=== PATIENT | male | born 1930 | race Caucasian/White ===

== ENCOUNTER → 2017-02-17 | Outpatient (CLI) | payer MEDICARE, OTHER ==
--- NOTE | 2017-02-17 15:10 | REP ---
LEFT HAND, FOUR VIEWS: HISTORY: Sprain. There is no acute fracture or dislocation. There is narrowing of the interphalangeal joint space of the first digit with associated osteophyte formation. There is narrowing of the intermediate and distal interphalangeal joint spaces of the second through fifth digits. IMPRESSION: Degenerative change as described above. Signed by Trevon Beck MD 02/17/2017 03:11 P
--- NOTE | 2017-02-17 15:14 | REP ---
LEFT WRIST, FOUR VIEWS: There is no acute fracture or dislocation. The joint spaces are normal in appearance. IMPRESSION: There is no acute fracture or dislocation. Signed by Trevon Beck MD 02/17/2017 03:26 P
== END ==
LOC: M WUC 12:21
PROVIDERS: ATTEND Physician Assistant
DX: S63.92XA Sprain of unspecified part of left wrist and hand, initial encounter (principal); M19.042 Primary osteoarthritis, left hand; X58.XXXA Exposure to other specified factors, initial encounter; Y92.89 Other specified places as the place of occurrence of the external cause; Y93.89 Activity, other specified; Y99.8 Other external cause status

== ENCOUNTER → 2017-08-25 | Outpatient (REF) | payer MEDICARE, OTHER | LOC: M LAB REF 18:19 | DX: S01.301A Unspecified open wound of right ear, initial encounter (principal); W18.30XA Fall on same level, unspecified, initial encounter; Y92.009 Unspecified place in unspecified non-institutional (private) residence as the place of occurrence of the external cause | CPT/HCPCS: 88305 ==

== ENCOUNTER → 2017-09-01 | Outpatient (REF) | payer MEDICARE, OTHER ==
[2017-09-01 12:23] LABS: BASO % 0.7 % (0.0-1.0); EOS # 0.2 10^3/uL (0.0-0.50); EOS % 4.2 % (0.0-3.0); HEMATOCRIT 39.2 % (42.0-52.0); HEMOGLOBIN 12.9 g/dl (13.5-17.5); IMMATURE GRANULOCYTE % 0.4 % (0-3.0); LYMPH # 1.4 10^3/uL (1.5-4.5); LYMPH % 24.7 % (24.0-44.0); MEAN CORPUSCULAR HGB CONC 32.9 g/dl (32.0-36.5); MEAN CORPUSCULAR VOLUME 91.2 fl (80.0-96.0); MONO # 0.8 10^3/uL (0.0-0.8); NEUTROPHILS # 3.2 10^3/uL (1.8-7.7); PLATELET COUNT, AUTOMATED 180 10^3/uL (150-450); WHITE BLOOD COUNT 5.7 10^3/uL (4.0-10.0)
[2017-09-01 12:35] LABS: ANION GAP 5 MEQ/L (8-16); BLOOD UREA NITROGEN 20 MG/DL (7-18); C REACTIVE PROTEIN QUANTITATIV < 0.30 MG/DL (0.00-0.30); CALCIUM LEVEL 8.8 MG/DL (8.8-10.2); CARBON DIOXIDE LEVEL 28 MEQ/L (21-32); CHLORIDE LEVEL 109 MEQ/L (98-107); CREATININE FOR GFR 1.46 MG/DL (0.70-1.30); GLOMERULAR FILTRATION RATE 48.7 (>35); GLUCOSE, FASTING 86 MG/DL (70-100); POTASSIUM SERUM 4.6 MEQ/L (3.5-5.1); SODIUM LEVEL 142 MEQ/L (136-145)
[2017-09-01 13:49] LABS: ERYTHROCYTE SEDIMENTATION RATE 20 mm/hr (0-30)
== END ==
LOC: M LAB REF 11:45
DX: C44.222 Squamous cell carcinoma of skin of right ear and external auricular canal (principal)
CPT/HCPCS: 80048

== ENCOUNTER → 2017-09-23 | Outpatient (CLI) | payer MEDICARE, OTHER | LOC: M ONCR 10:07 | DX: C44.222 Squamous cell carcinoma of skin of right ear and external auricular canal (principal) | CPT/HCPCS: G0463 ==

== ENCOUNTER 2017-09-29 09:35 | Outpatient (RCR) | payer MEDICARE, OTHER | END 2017-10-07 | LOC: M ONCR 09:35 | DX: C44.202 Unspecified malignant neoplasm of skin of right ear and external auricular canal (principal) | CPT/HCPCS: 77300 ==

== ENCOUNTER 2017-10-08 10:18 | Outpatient (RCR) | payer MEDICARE, OTHER | END 2017-11-06 | LOC: M ONCR 10:18 | DX: C44.202 Unspecified malignant neoplasm of skin of right ear and external auricular canal (principal) | CPT/HCPCS: 77336 ==

== ENCOUNTER 2017-11-08 09:54 | Outpatient (RCR) | payer MEDICARE, OTHER | END 2017-12-07 | LOC: M ONCR 09:54 | DX: C44.202 Unspecified malignant neoplasm of skin of right ear and external auricular canal (principal) | CPT/HCPCS: 77336 ==

== ENCOUNTER → 2017-12-29 | Outpatient (CLI) | payer MEDICARE, OTHER | LOC: M ONCR 09:52 | DX: C44.202 Unspecified malignant neoplasm of skin of right ear and external auricular canal (principal) | CPT/HCPCS: G0463 ==

== ENCOUNTER → 2018-06-29 | Outpatient (CLI) | payer MEDICARE, OTHER ==
[~2018-06-29] MED LIST: SILV40CR EXT
--- NOTE | 2018-06-30 13:01 | RADONC ---
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 Since this time he has had complete healing of the skin reaction he was experiencing during radiotherapy. He is also have a complete resolution of his tumor. He specifically denies any nausea, vomiting, headache or significant skin irritation. His energy level is satisfactory and he is able to maintain day-to-day activities. He does claim there is occasional memory loss but denies any other issues related to his treatment or to his disease. SYSTEMS REVIEW: Is noncontributory with the exception of was noted in the above paragraph. EXAMINATION FINDINGS: The skin within the irradiated volume shows no evidence of residual tumor. No new tumors are suspected. There is some minute scabbing with minimal excoriation in his scalp area. No lymphadenopathy is appreciated in the cervical, supraclavicular, axillary, inguinal lymph node chains. Lungs: Clear. Heart: Regular without murmurs. Abdomen: Without evidence of hepatomegaly, masses, deep abdominal tenderness. Extremities: Without cyanosis, clubbing or edema. Neurologic: Examination unchanged. IMPRESSION: Clinically SHAMIKA. PLAN: We will see the patient back in approximately 1 year for post radiotherapy followup visit. He was encouraged to return to his referring physicians as per their directions and instructions. cc: MD Andres Naik MD Jason White, MD
== END ==
LOC: M ONCR 10:55
PROVIDERS: ATTEND Radiology Radiation Oncology
DX: Z08 Encounter for follow-up examination after completed treatment for malignant neoplasm (principal); R41.3 Other amnesia; Z92.3 Personal history of irradiation; Z85.828 Personal history of other malignant neoplasm of skin

== ENCOUNTER 2020-06-20 10:59 | Observation (INO) | payer MEDICARE, OTHER ==
[~2020-06-20] VITALS: Ht 157.5 cm; Wt 48.2 kg
--- OUTSIDE RECORDS SUMMARY | 2020-06-20 11:09 | CCD ---
Continuity of Care Document (CCD) Created on: 04/26/2020 Leon Quiñones External Reference #: [id number] : 1930 Sex: Male Author Author Leon TOBIN MD Organization Unknown Address [address] [place] [id number] Phone [phone] Care Team Providers Care Button Station Worker Name Role Phone Phuc Winchester M.D. AUTM [phone] Josselin Causey PA-C AUTM [phone] AUTM Unavailable Problems Active Problems Provider Date Obstructive sleep apnea syndrome Candida Jay Onset: 02/23/2011 Disorders of initiating and maintaining sleep Dorothy banks M.D. Onset: 02/23/2011 Essential hypertension Dorothy Tan M.D. Onset: 02/23/2011 Ex-smoker Dorothy Tan M.D. Onset: Body Mass Index 31.0-31.9 Adult Gee Jay Onset: 03/14/2013 Obesity Dorothy Tan M.D. Onset: Overweight Dorothy Tan M.D. Onset: 09/2012 Body Mass Index 26.0-26.9 Adult Gee Jay Onset: 03/13/2014 Body Mass Index 33.0-33.9 Adult Gee Jay Onset: 07/26/2014 Neoplasm of uncertain behavior of skin Tashi Rudd MD O nset: 08/20/2014 Deviated nasal septum Tashi Rudd MD Onset: 08/20/2014 Social History Type Date Description Comments Sex Unknown Smokeless Tobacco Never Used Smokeless Tobacco ETOH Use 1-2 A Day Tobacco Use Start: 05/10/45 End: 05/10/82 Patient is a forme r smoker 1-2 PPD HISTORY FOR 37 YEARS Recreational Drug Use Denies Drug Use Smoking Status Reviewed: 03/13/20 Patient is a former smoker 1- 2 PPD HISTORY FOR 37 YEARS Allergies, Adverse Reactions, Alerts Active Allergies Reaction Severity Comments Date Oxacillin 07/26/2014 Shrimp 09/10/2017 Inactive Allergies NKDA 03/12/2010 Medications Active Medications SIG Qnty Indications Ordering Provide r Date Atrovent HFA 17mcg/Act Aerosol 2 sprays both sides twice a day 1Month Andres Tobin MD [address] 1 by mouth every day 60caps Andres Tobin MD 04/26/2020 Aspirin 81mg Tablets 1 tab by mouth every day Unknown Multivitamins Tablets 1 tab by mouth every day Unknown CPAP 7CM Marras Unknown Lipitor 40mg Tablets 1 tab by mouth every day Unknown Donepezil HCL 10mg Tablets 1 tab by mouth every day Unknown Memantine HCL 10mg Tablets Cathy Sanders M.D. Meclizine HCL 25mg Tablets 1/2 tab prn Unknown Immunizations CPT Code Status Date Vaccine Lot # 64069 Given 02/21/2013 Influenza Virus Split 3 Yrs And Above For Intramuscular Use 54488 Given 02/15/2012 Influenza Virus Split 3 Yrs And Above For Intramuscular Use 87836 Given 03/30/2011 Influenza Virus Split 3 Yrs And Above For Intramuscular Use 80187 Given 01/15/2010 Influenza Vaccine 98482 Given 03/14/2008 Pneumococcal PPSV23 Vital Signs Date Vital Result Comment 04/26/2020 1:13pm Height 66 inches 5'6" Weight 124.00 lb BMI (Body Mass Index) 20.0 kg/m2 [place] Body Weight 142 lb Weight 56.246 kg BSA (Body Surface Area) 1.63 m2 03/13/2020 9:59am BP Systolic 130 mmHg BP Diastolic 80 mmHg Heart Rate 94 /min O2 % BldC Oximetry 97 % Height 66 inches 5'6" Weight 124.00 lb BMI (Body Mass Index) 20.0 kg/m2 [place] Body Weight 142 lb Weight 56.246 kg BSA (Body Surface Area) 1.63 m2 Results Description No Information Available Procedures Description No Information Available Medical Devices Description No Information Available Encounters Type Date Location Provider Dx Diagnosis Office Visit 03/13/2020 10:00a [facility] Chucky Romano, N.P. G47.33 Obstructive sleep apnea (adult) (pediatr ic) Z87.891 Personal history of nicotine dependence Assessments Date Code Description Provider 03/13/2020 G47.33 Obstructive sleep apnea (adult) (pediatric) Yaneth Romano N.John Paul 03/13/2020 Z87.891 Personal history of nicotine dep endence aYneth oRmano, N.Chelo. Plan of Treatment Future Appointment(s):* 03/13/2021 10:15 am - Yaneth Romano, N.P. at [facility] 04/26/2020 - Andres Tobin MD* All * New Medication:* Atrovent HFA 17 mcg/Act - 2 sprays both sides twice a day * Omeprazole 40 mg - 1 by mouth every day Functional Status Functional Condition Comment Date Status Independent with all ADL's Activ e Independent with all IADL's Acti ve Mental Status Mental Condition Comment Date Status Cognitive ability not impaired A ctive Referrals Refer to Dr Reason for Referral Status Appt Andres Tobin M.D. [employer]IP REF J [employer] Scheduled 04/26/[address] [address] [phone]
--- OUTSIDE RECORDS SUMMARY | 2020-06-20 11:09 | CCD | Continuity of Care Document ---
Author Author Leon TOBIN MD Organization Unknown Address [address] [place] [address] Phone [phone] Care Team Providers Care Steel Rule Die Maker Apprentice Name Role Phone Phuc Winchester M.D. AUTM [phone] Josselin Causey PA-C AUTM [phone] AUTM Unavailable Problems Active Problems Provider Date [...] SIG Qnty Indications Ordering Provide r Date Omeprazole 40mg Capsules DR 1 by mouth every day 60caps Andres Tobin MD 04/26/2020 Ipratropium [place] 0.06% Solution spray 2 sprays in each nostrils two times a day 15units Andres goldsmith MD 04/26/2020 Aspirin 81mg Tablets 1 tab by mouth every day Unknown Multivitamins Tablets 1 tab by mouth every day Unknown CPAP 7CM Marras Unknown Lipitor 40mg Tablets 1 tab by mouth every day Unknown Donepezil HCL 10mg Tablets 1 tab by mouth every day Unknown Memantine HCL 10mg Tablets Cathy Sanders M.D. Meclizine HCL 25mg Tablets 1/2 tab prn Unknown History Medications Atrovent HFA 17mcg/Act Aerosol 2 sprays both sides twice a day 1Month Andres Tobin MD 0 - 04/26/2020 Immunizations CPT Code Status Date Vaccine Lot # [id number] Given 02/21/2013 Influenza Virus Split 3 Yrs And Above For Intramuscular Use 38785 Given 02/15/2012 Influenza Virus Split 3 Yrs And Above For Intramuscular Use 01776 Given 03/30/2011 Influenza Virus Split 3 Yrs And Above For Intramuscular Use 78035 Given 01/15/2010 Influenza Vaccine 96560 Given 03/14/2008 Pneumococcal PPSV23 Vital Signs Date Vital Result Comment 06/17/2020 10:47am Height 66 inches 5'6" Weight 124.00 lb BMI (Body Mass Index) 20.0 kg/m2 [place] Body Weight 142 lb Weight 56.246 kg BSA (Body Surface Area) 1.63 m2 06/03/2020 2:43pm Height 66 inches 5'6" Weight 124.00 lb BMI (Body Mass Index) 20.0 kg/m2 [place] Body Weight 142 lb Weight 56.246 kg BSA (Body Surface Area) 1.63 m2 Results Description No Information Available Procedures Description No Information Available Medical Devices Description No Information Available Encounters Type Date Location Provider Dx Diagnosis Office Visit 06/03/2020 2:40p [facility] Andres buchanan MD 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 J31.0 Chronic rhinitis Office Visit 04/26/2020 1:00p [facility] Andres Tobin MD J31.0 Chronic rhinitis Office Visit 03/13/2020 10:00a [facility] Chucky Romano N.PRo G47.33 Obstructive sleep apnea (adult) (pediatr ic) Z87.891 Personal history of nicotine dependence Assessments Date Code Description Provider 06/03/2020 C44.301 Unspecified malignant neoplasm o f skin of nose Andres Tobin MD 06/03/2020 J31.0 Chronic rhinitis Andres Tobin MD 04/26/2020 J31.0 Chronic rhinitis Andres Tobin MD 03/13/2020 G47.33 Obstructive sleep apnea (adult) (pediatric) Yaneth Romano, N.P. 03/13/2020 Z87.891 Personal history of nicotine dep endence Yaneth Romano, N.P. Plan of Treatment Future Appointment(s):* 03/13/2021 10:15 am - Yaneth Romano, N.PRo at [facility] Functional Status Functional Condition Comment Date Status Independent with all ADL's Activ e Independent with all IADL's Acti ve Mental Status Mental Condition Comment Date Status Cognitive ability not impaired A ctive Referrals Refer to Dr Reason for Referral Status Appt Andres Alvarez M.D. [employer]AL [employer]IP REF J [employer] Closed 04/26/[address] [place] [address] [phone]
--- OUTSIDE RECORDS SUMMARY | 2020-06-20 11:09 | CCD | Continuity of Care Document ---
Author Author Leon WINCHESTER M.D. Organization Unknown Address [address] [place] [address] Phone [phone] Care Team Providers Care Black And White Printer Operator Name Role Phone Phuc Winchester MD AUTM [phone] Moody Malloy MD AUTM [phone] Dorothy Tan AUTM [phone] Problems Active Problems Provider Date Aortic valve disorder Hermelinda Alexis D.O. Onset: 05/10 Benign essential hypertension Hermelinda Alexis D.O. Ons et: 05/27/2011 Obstructive sleep apnea syndrome Hermelinda Alexis D.O. Onset: 05/27/2011 Gastroesophageal reflux disease Hermelinda Alexis D.O. O nset: 05/27/2011 Pure hypercholesterolemia Hermelinda Alexis D.O. Onset: 05/27/2011 Social History Type Date Description Comments Sex Unknown ETOH Use Denies alcohol use Tobacco Use Start: Unknown End: Unknown Patient is a former smoker SMOKED FOR 27YRS 1/2 MOIZ A DAY Allergies, Adverse Reactions, Alerts Active Allergies Reaction Severity Comments Date Penicillin 05/12/2018 Shrimp 05/12/2018 Inactive Allergies NKDA 07/28/2010 Medications Active Medications SIG Qnty Indications Ordering Provide r Date Memantine HCL 10mg Tablets take one tablet by mouth twice a day 60tabs Phuc Winchester M.D. 2019 Pepcid 20mg Tablets 1 by mouth daily 90tabs Phuc Winchester M.D. 10/26/2019 Famotidine 20mg Tablets 1 by mouth every day 180tabs Phuc Winchester M.D. 05/08/2019 Cpap Phuc Winchester M.D. 04/09 Aspirin 81mg Chewtabs 1 by mouth every day 100units Phuc Winchester M.D. 05/16/2015 Walker With Wheels [facility] walker with seat,brakes as directed dx: osteoarthitis,gait disorder 1units Hermelinda Alexis D.O. 05/22/2014 Lipitor 40mg Tablets 1 by mouth every day 90tabs Phuc Winchester M.D. 04/11/2013 Meclizine HCL 25mg Chewtabs Unknown Donepezil HCL 10mg Tablets 1/2 by mouth every day for 2 weeks, then 1 po daily Unknown Immunizations CPT Code Status Date Vaccine Lot # U-Flu Given 02/19/2020 Influenza,Unspecified U-Flu Given 02/22/2019 Influenza,Unspecified [id number] Given 02/22/2018 Shingrix U-Flu Given 02/22/2018 Influenza,Unspecified 09442 Given 07/13/2014 Prevnar 13 [id number] Given 12/11/2009 Zostavax U-Pneum Given 11/17/2006 Pneumococcal,Unspecified Vital Signs Date Vital Result Comment 03/26/2020 12:17pm BP Systolic 158 mmHg BP Diastolic 100 mmHg BP Systolic Recheck 132 mmHg BP Diastolic Recheck 70 mmHg Heart Rate 98 /min Height 63.0 inches 5'3" Weight 126.00 lb O2 % BldC Oximetry 98 % BMI (Body Mass Index) 22.3 kg/m2 12/29/2019 11:47am BP Systolic 126 mmHg BP Diastolic 70 mmHg BP Systolic Lying Down 100 mmHg BP Diastolic Lying Down 68 mmHg BP Systolic Sitting 90 mmHg BP Diastolic Sitting 64 mmHg BP Systolic Standing 82 mmHg BP Diastolic Standing 54 mmHg Heart Rate 96 /min Height 63.0 inches 5'3" Weight 138.00 lb O2 % BldC Oximetry 96 % BMI (Body Mass Index) 24.4 kg/m2 Results Test Acquired Date Facility Test Result H/L Range Note Complete Blood Count 03/26/2020 [facility] corky arthur Physician General Practice: Dr Armando Carranza [place] [id number] [phone] WBC 7.0 x10*3/UL 4.1 - 10.9 RBC 4.76 x10*6/UL 4.20 - 6.30 Hemoglobin 13.9 g/dL 12.0 - 18.0 Hematocrit 42.2 % 37.0 - 51.0 MCV 88.6 fL 80.0 - 97.0 MCH 29.3 pg 26.0 - 32.0 MCHC 33.1 g/dL 31.0 - 38.0 RDW 13.7 % 11.6 - 13.7 PLT 209 x10*3/UL 140 - 440 MPV 8.5 FL 7.8 - 11.0 Lymph % 17.3 % 10.0 - 58.5 Mid % 4.7 % 1.7 - 9.3 Neut % 78.0 % 37.0 - 92.0 Lymph # 1.2 x10*3/UL 0.6 - 4.1 Mid # 0.4 x10*3/UL 0.1 - 0.6 Neut # 5.4 x10*3/UL 2.0 - 7.8 Comprehensive Chem Profile 03/26/2020 [facility] corky loredo Physician General Practice: [place] [address] [phone] Glucose 96 mg/dL 74 - 99 1 BUN 18 mg/dL 7 - 18 Creatinine 1.2 mg/dL 0.6 - 1.3 Sodium 142 mEq/L 136 - 145 Potassium 4.5 mEq/L 3.5 - 5.1 Chloride 103 mEq/L 98 - 107 Carbon Dioxide 33 mEq/L High 21 - 32 Calcium 9.5 mg/dL 8.5 - 10.1 Alk. Phosphatase 125 mg/dL High 46 - 116 Total Bilirubin 0.6 mg/dL 0.2 - 1.0 Ast (Sgot) 29 U/L 15 - 37 Alt (SGPT) 41 U/L 12 - 78 Albumin 3.3 g/dL Low 3.4 - 5.0 Total Protein 8.0 g/dL 6.4 - 8.2 A/G Ratio 0.70 CALC Low 1.00 - 1.90 GFR 57 mL/min Low >60 GFR >= 60 mL/min >60 2 Laboratory test finding 03/26/2020 [facility] Barrel And Receiver corky solorzano Physician General Practice: [place] [address] [phone] Thyroid Stimulating Hormone 1.28 uIU/mL 0.3 6 - 3.74 Complete Blood Count 12/29/2019 [facility] Executive corky arthur Physician General Practice: [place] [address] [phone] WBC 7.3 x10*3/UL 4.1 - 10.9 RBC 4.18 x10*6/UL Low 4.20 - 6.30 Hemoglobin 12.3 g/dL 12.0 - 18.0 Hematocrit 36.5 % Low 37.0 - 51.0 MCV 87.3 fL 80.0 - 97.0 MCH 29.5 pg 26.0 - 32.0 MCHC 33.8 g/dL 31.0 - 38.0 RDW 13.2 % 11.6 - 13.7 PLT 202 x10*3/UL 140 - 440 MPV 8.3 FL 7.8 - 11.0 Lymph % 20.7 % 10.0 - 58.5 Mid % 6.9 % 1.7 - 9.3 Neut % 72.4 % 37.0 - 92.0 Lymph # 1.5 x10*3/UL 0.6 - 4.1 Mid # 0.5 x10*3/UL 0.1 - 0.6 Neut # 5.3 x10*3/UL 2.0 - 7.8 Comprehensive Chem Profile 12/29/2019 [facility] corky loredo Physician General Practice: [place] [address] [phone] Glucose 112 mg/dL High 74 - 99 3 BUN 26 mg/dL High 7 - 18 Creatinine 1.7 mg/dL High 0.6 - 1.3 Sodium 142 mEq/L 136 - 145 Potassium 5.1 mEq/L 3.5 - 5.1 Chloride 105 mEq/L 98 - 107 Carbon Dioxide 28 mEq/L 21 - 32 Calcium 9.3 mg/dL 8.5 - 10.1 Alk. Phosphatase 99 mg/dL 46 - 116 Total Bilirubin 0.8 mg/dL 0.2 - 1.0 Ast (Sgot) 22 U/L 15 - 37 Alt (SGPT) 27 U/L 12 - 78 Albumin 3.4 g/dL 3.4 - 5.0 Total Protein 8.0 g/dL 6.4 - 8.2 A/G Ratio 0.74 CALC Low 1.00 - 1.90 GFR 38 mL/min Low >60 GFR 46 mL/min Low >60 4 Complete Blood Count 10/23/2019 [facility] Account Executive corky arthur Physician General Practice: [place] [address] [phone] WBC 6.4 x10*3/UL 4.1 - 10.9 RBC 4.51 x10*6/UL 4.20 - 6.30 Hemoglobin 13.1 g/dL 12.0 - 18.0 Hematocrit 39.5 % 37.0 - 51.0 MCV 87.7 fL 80.0 - 97.0 MCH 29.0 pg 26.0 - 32.0 MCHC 33.0 g/dL 31.0 - 38.0 RDW 13.6 % 11.6 - 13.7 PLT 183 x10*3/UL 140 - 440 MPV 8.2 FL 7.8 - 11.0 Lymph % 24.9 % 10.0 - 58.5 Mid % 7.7 % 1.7 - 9.3 Neut % 67.4 % 37.0 - 92.0 Lymph # 1.5 x10*3/UL 0.6 - 4.1 Mid # 0.6 x10*3/UL 0.1 - 0.6 Neut # 4.3 x10*3/UL 2.0 - 7.8 Comprehensive Chem Profile 10/23/2019 [facility] corky Claros Physician General Practice: [place] [address] [phone] Glucose 94 mg/dL 74 - 99 5 BUN 28 mg/dL High 7 - 18 Creatinine 1.5 mg/dL High 0.6 - 1.3 Sodium 143 mEq/L 136 - 145 Potassium 4.8 mEq/L 3.5 - 5.1 Chloride 106 mEq/L 98 - 107 Carbon Dioxide 26 mEq/L 21 - 32 Calcium 8.9 mg/dL 8.5 - 10.1 Alk. Phosphatase 90 mg/dL 46 - 116 Total Bilirubin 0.8 mg/dL 0.2 - 1.0 Ast (Sgot) 28 U/L 15 - 37 Alt (SGPT) 36 U/L 12 - 78 Albumin 3.6 g/dL 3.4 - 5.0 Total Protein 8.0 g/dL 6.4 - 8.2 A/G Ratio 0.82 CALC Low 1.00 - 1.90 GFR 44 mL/min Low >60 GFR 54 mL/min Low >60 6 Lipid Profile 10/23/2019 [facility] Physician General Practice: Dr [place] [address] [phone] Cholesterol 131 mg/dL 131 - 200 Triglycerides 65 mg/dL 30 - 150 HDL Cholesterol 59 mg/dL 35 - 60 LDL (Calculated) 59 CALC 50 - 159 Laboratory test finding 10/23/2019 [facility] Physician General Practice: Dr Armando [place] [address] [phone] Thyroid Stimulating Hormone 1.40 uIU/mL 0.3 6 - 3.74 1 100-125 mg/dL PRE-DIABET ES/FASTING >126 mg/dL DIABETES/FASTING 2 CHRONIC KIDNEY DISEASE STAGI NG PER NKF STAGE I & II GFR >= 60 NORMAL TO MILDLY DECREASED STAGE III GFR 30-59 MODERATELY DECREASED STAGE IV GFR 15-29 SEVERELY DECREASED STAGE V GFR <15 VERY LITTLE GFR LEFT ESRD GFR <15 ON WRINKLE CHASER 3 100-125 mg/dL PRE-DIABET ES/FASTING >126 mg/dL DIABETES/FASTING 4 CHRONIC KIDNEY DISEASE STAGI NG PER NKF STAGE I & II GFR >= 60 NORMAL TO MILDLY DECREASED STAGE III GFR 30-59 MODERATELY DECREASED STAGE IV GFR 15-29 SEVERELY DECREASED STAGE V GFR <15 VERY LITTLE GFR LEFT ESRD GFR <15 ON WRINKLE CHASER 5 100-125 mg/dL PRE-DIABET ES/FASTING >126 mg/dL DIABETES/FASTING 6 CHRONIC KIDNEY DISEASE STAGI NG PER NKF STAGE I & II GFR >= 60 NORMAL TO MILDLY DECREASED STAGE III GFR 30-59 MODERATELY DECREASED STAGE IV GFR 15-29 SEVERELY DECREASED STAGE V GFR <15 VERY LITTLE GFR LEFT ESRD GFR <15 ON WRINKLE CHASER Procedures Date Code Description Status 02/26/2016 [id number] Colonoscopy Completed 02/11/2005 [id number] Colonoscopy Completed Medical Devices Description No Information Available Encounters Type Date Location Provider Dx Diagnosis Office Visit 03/26/2020 11:30a [facility] Winchester M.D. 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 Phuc Winchester M.D. 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 03/26/2020 K21.9 Gastro-esophageal reflux disease without esophagitis Phuc Winchester M.D. 03/26/2020 I12.9 Hypertensive chronic kidney disease with stage 1 through stage 4 chronic kidney disease, or unspecified chronic kidney disease Phuc Winchester M.D. 03/26/2020 N18.30 Chronic kidney disease, stage 3 unspecified Phuc Winchester M.D. 03/26/2020 G47.33 Obstructive sleep apnea (adult) (pediatric) Phuc Winchester M.D. 03/26/2020 I25.10 Atherosclerotic heart disease of [place] coronary artery with Phuc Winchester M.D. 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 03/26/2020 Z95.3 Presence of xenogenic heart valv e Phuc Winchester M.D. 03/26/2020 H35.30 Unspecified macular degeneration Phuc Winchester M.D. 03/26/2020 R09.82 Postnasal drip Phuc Winchester M.D. 02/22/2020 G47.33 Obstructive sleep apnea (adult) (pediatric) Phuc Winchester M.D. 02/22/2020 E78.00 Pure hypercholesterolemia, unspe cified Phuc Winchester M.D. 02/22/2020 K21.9 Gastro-esophageal reflux disease without esophagitis Phuc Winchester M.D. 01/17/2020 G47.33 Obstructive sleep apnea (adult) (pediatric) Phuc Winchester M.D. 01/17/2020 E78.00 Pure hypercholesterolemia, unspe cified Phuc Winchester M.D. 01/17/2020 K21.9 Gastro-esophageal reflux disease without esophagitis Phuc Winchester M.D. 01/17/2020 N18.3 Chronic kidney disease, stage 3 (moderate) Phuc Winchester M.D. 01/01/2020 G47.33 Obstructive sleep apnea (adult) (pediatric) Phuc Winchester M.D. 01/01/2020 E78.00 Pure hypercholesterolemia, unspe cified Phuc Winchester M.D. 01/01/2020 K21.9 Gastro-esophageal reflux disease without esophagitis Phuc Winchester M.D. 01/01/2020 N18.3 Chronic kidney disease, stage 3 (moderate) Phuc Winchester M.D. 12/29/2019 I95.1 Orthostatic hypotension Phuc Winchester M.D. 12/29/2019 R29.6 Repeated falls Phuc Winchester M.D. 12/29/2019 I12.9 Hypertensive chronic kidney disease with stage 1 through stage 4 chronic kidney disease, or unspecified chronic kidney disease Phuc Winchester M.D. 12/29/2019 N18.3 Chronic kidney disease, stage 3 (moderate) Phuc Winchester M.D. 12/29/2019 F03.90 Unspecified dementia without beh avioral disturbance Phuc Winchester M.D. 12/29/2019 D64.9 Anemia, unspecified Phuc coles M.D. 12/07/2019 G47.33 Obstructive sleep apnea (adult) (pediatric) Phuc Winchester M.D. 12/07/2019 N18.3 Chronic kidney disease, stage 3 (moderate) Phuc Winchester M.D. 12/07/2019 E78.00 Pure hypercholesterolemia, unspe cified Phuc Winchester M.D. 12/07/2019 K21.9 Gastro-esophageal reflux disease without esophagitis Phuc Winchester M.D. 10/23/2019 D64.9 Anemia, unspecified Phuc coles M.D. 10/23/2019 D64.9 Anemia, unspecified Lab Schedule 10/23/2019 I12.9 Hypertensive chronic kidney disease with stage 1 through stage 4 chronic kidney disease, or unspecified chronic kidney disease Phuc Winchester M.D. 10/23/2019 I12.9 Hypertensive chronic kidney disease with stage 1 through stage 4 chronic kidney disease, or unspecified chronic kidney disease Lab Schedule 10/23/2019 N18.3 Chronic kidney disease, stage 3 (moderate) Phuc Winchester M.D. 10/23/2019 N18.3 Chronic kidney disease, stage 3 (moderate) Lab Schedule 10/23/2019 E78.00 Pure hypercholesterolemia, unspe cified Phuc Winchester M.D. 10/23/2019 E78.00 Pure hypercholesterolemia, unspe cified Lab Schedule Plan of Treatment Future Appointment(s):* 07/26/2020 1:00 pm - [facility] 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 Hypercholesterolemia: Labs are not obtained today. Good results on Lipitor prior at present dose, will continue and monitor.2. Gastro-esophageal reflux disease: Uses H2 blockers for heartburn. We will monitor.3. Hypertensive chronic kidney disease: Elevated initially without associated symptoms and on recheck was normal. He will continue present regimen, will monitor.4. Chronic kidney disease, stage 3: Await labs today. We will monitor.5. Obstructive sleep apnea: Good compliance with CPAP. We will monitor. 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 We will monitor.7. Dementia with Lewy bodies: Patient will follow up with Dr. 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 Doing w ell, following with Cardiology.9. Macular degeneration: He will see Dr. Malloy as scheduled.10. Postnasal drip: Appears to be chronic, will use Flonase. We will monitor.Ongoing cares: Has a significant amount of care at the [place], sees next month with labs (will get these to me).Prior falls, but none recently since stopped "a blood pressure medicine". I am going to see him again in 4 months with CBC and CMP. If he has new problems or issues sooner he will let us know. Functional Status Description No Information Available Mental Status Description No Information Available Referrals Refer to Reason for Referral Status Appt Date Andres Tobin MD CONSULT FOR POST NASAL DRIP Sent [facility] [address] [place] [address] [phone]
--- OUTSIDE RECORDS SUMMARY | 2020-06-20 11:10 | CCD | Continuity of Care Document ---
Author Author Leon WINCHESTER M.D. Organization Unknown Address [address] [place] [address] Phone [phone] Care Team Providers Care Support Services Specialist Name Role Phone Phuc Winchester MD AUTM [phone] Moody Malloy MD AUTM [phone] Dorothy Tan AUTM [phone] Problems Active Problems Provider Date Aortic valve [...] Phuc Winchester M.D. 05/16/2015 [facility] With Wheels [facility] [place] walker with seat,brakes as directed dx: osteoarthitis,gait [...] Given 02/19/2020 Influenza,Unspecified U-Flu Given 02/22/2019 Influenza,Unspecified 45108 Given 02/22/2018 Shingrix U-Flu Given 02/22/2018 Influenza,Unspecified 31154 Given 07/13/2014 Prevnar 13 [id number] Given 12/11/2009 Zostavax U-Pneum Given 11/17/2006 Pneumococcal,Unspecified Vital Signs Date Vital Result Comment 03/26/2020 12:17pm BP Systolic 158 mmHg BP Diastolic 100 mmHg Heart Rate 98 /min Height 63.0 [...] Date Facility Test Result H/L Range Note Laboratory test finding 03/26/2020 [facility] Super[facility] corky solorzano Screw Machine Hand: Dr Armando Carranza [place], [place] [id number] [phone] TSH <pending> Complete Blood Count 12/29/2019 [facility] Screw Machine Hand: [place] [address] [phone] WBC 7.3 x10*3/UL 4.1 - 10.9 RBC [...] 2.0 - 7.8 Comprehensive Chem Profile 12/29/2019 [facility] loredo, Screw Machine Hand: [place] [address] [phone] Glucose 112 mg/dL High 74 - 99 1 BUN 26 mg/dL High 7 - 18 [...] Low >60 GFR 46 mL/min Low >60 2 Complete Blood Count 10/23/2019 [facility] corky arhtur Screw Machine Hand: [place] [address] [phone] WBC 6.4 x10*3/UL 4.1 - 10.9 RBC [...] 2.0 - 7.8 Comprehensive Chem Profile 10/23/2019 [facility] corky loredo Screw Machine Hand: [place] [address] [phone] Glucose 94 mg/dL 74 - 99 3 BUN 28 mg/dL High 7 - 18 [...] Low >60 GFR 54 mL/min Low >60 4 Lipid Profile 10/23/2019 [facility] Screw Machine Hand: Dr Armando Carranza [place], [place] [id number] [phone] Cholesterol 131 mg/dL 131 - 200 Triglycerides 65 mg/dL 30 - 150 HDL Cholesterol 59 mg/dL 35 - 60 LDL (Calculated) 59 CALC 50 - 159 Laboratory test finding 10/23/2019 [facility] Screw Machine Hand: Dr Armando Carranza [place], [place] [id number] [phone] Thyroid Stimulating Hormone 1.40 uIU/mL 0.3 6 - 3.74 1 100-125 mg/dL PRE-DIABET ES/FASTING >126 mg/dL DIABETES/FASTING 2 CHRONIC KIDNEY DISEASE STAGI NG PER NKF STAGE I & II GFR >= 60 NORMAL TO MILDLY DECREASED STAGE III GFR 30-59 MODERATELY DECREASED STAGE IV GFR 15-29 SEVERELY DECREASED STAGE V GFR <15 VERY LITTLE GFR LEFT ESRD GFR <15 ON FORECAST ANALYST 3 100-125 mg/dL PRE-DIABET ES/FASTING >126 mg/dL DIABETES/FASTING 4 CHRONIC KIDNEY DISEASE STAGI NG PER NKF STAGE I & II GFR >= 60 NORMAL TO MILDLY DECREASED STAGE III GFR 30-59 MODERATELY DECREASED STAGE IV GFR 15-29 SEVERELY DECREASED STAGE V GFR <15 VERY LITTLE GFR LEFT ESRD GFR <15 ON FORECAST ANALYST Procedures Date Code Description Status 02/26/2016 [id number] Colonoscopy Completed 02/11/2005 [id number] Colonoscopy Completed Medical Devices Description No Information Available Encounters Type Date Location Provider Dx Diagnosis Office Visit 12/29/2019 11:30a [facility] Phuc Winchester M.D. 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
--- OUTSIDE RECORDS SUMMARY | 2020-06-20 11:10 | CCD | Continuity of Care Document ---
Author Author Leon WINCHESTER M.D. Organization Unknown Address [address] [place] [address] Phone [phone] Care Team Providers Care Dispatcher Service Name Role Phone Phuc Winchester MD AUTM [phone] Moody Malloy MD AUTM [phone] Dorothy Tan AUTM [phone] Problems Active Problems Provider Date Aortic valve [...] Phuc Winchester M.D. 05/16/2015 Walker With Wheels [facility] walker with seat,brakes as directed dx: osteoarthitis,gait [...] Given 02/19/2020 Influenza,Unspecified U-Flu Given 02/22/2019 Influenza,Unspecified 78618 Given 02/22/2018 Shingrix U-Flu Given 02/22/2018 Influenza,Unspecified 65985 Given 07/13/2014 Prevnar 13 [id number] 40842 Given 12/11/2009 Zostavax U-Pneum Given 11/17/2006 Pneumococcal,Unspecified [...] Range Note Laboratory test finding 03/26/2020 [facility] corky solorzano Custom Frame Assembler: Dr Armando Carranza [place], [place] [id number] [phone] TSH <pending> Complete Blood Count 12/29/2019 [facility] Custom Frame Assembler: [place] [address] [phone] WBC 7.3 x10*3/UL 4.1 - 10.9 RBC [...] 2.0 - 7.8 Comprehensive Chem Profile 12/29/2019 [facility], Custom Frame Assembler: [place] [address] [phone] Glucose 112 mg/dL High 74 - 99 [...] Low >60 2 Complete Blood Count 10/23/2019 [facility] [employer] Techn[facility] corky arthur Custom Frame Assembler: [place] [address] [phone] WBC 6.4 x10*3/UL 4.1 - 10.9 RBC [...] 2.0 - 7.8 Comprehensive Chem Profile 10/23/2019 [facility] corky loredo Custom Frame Assembler: [place] [address] [phone] Glucose 94 mg/dL 74 - 99 3 [...] mL/min Low >60 4 Lipid Profile 10/23/2019 [facility] Custom Frame Assembler: [place] [address] [phone] Cholesterol 131 mg/dL 131 - 200 Triglycerides 65 mg/dL 30 - 150 HDL Cholesterol 59 mg/dL 35 - 60 LDL (Calculated) 59 CALC 50 - 159 Laboratory test finding 10/23/2019 [facility] Custom Frame Assembler: Dr Armando Carranza [place], [place] [id number] [phone] Thyroid Stimulating Hormone 1.40 uIU/mL 0.3 6 - 3.74 1 100-125 mg/dL PRE-DIABET ES/FASTING >126 mg/dL DIABETES/FASTING 2 CHRONIC KIDNEY DISEASE STAGI NG PER NKF STAGE I & II GFR >= 60 NORMAL TO MILDLY DECREASED STAGE III GFR 30-59 MODERATELY DECREASED STAGE IV GFR 15-29 SEVERELY DECREASED STAGE V GFR <15 VERY LITTLE GFR LEFT ESRD GFR <15 ON B2B SALES REPRESENTATIVE 3 100-125 mg/dL PRE-DIABET ES/FASTING >126 mg/dL DIABETES/FASTING 4 CHRONIC KIDNEY DISEASE STAGI NG PER NKF STAGE I & II GFR >= 60 NORMAL TO MILDLY DECREASED STAGE III GFR 30-59 MODERATELY DECREASED STAGE IV GFR 15-29 SEVERELY DECREASED STAGE V GFR <15 VERY LITTLE GFR LEFT ESRD GFR <15 ON B2B SALES REPRESENTATIVE Procedures Date Code Description Status 02/26/2016 [id number] Colonoscopy Completed 02/11/2005 [id number] Colonoscopy Completed Medical Devices Description No Information Available Encounters Type Date Location Provider Dx Diagnosis Office Visit 12/29/2019 11:30a [facility] Phuc Winchester M.D. 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 03/26/2020 K21.9 Gastro-esophageal reflux disease without esophagitis Phuc Wicnhester M.D. 03/26/2020 I12.9 Hypertensive chronic kidney disease with stage 1 through stage 4 chronic kidney disease, or unspecified chronic kidney disease Phuc Winchester M.D. 03/26/2020 N18.30 Chronic kidney disease, stage 3 unspecified Phuc Winchester M.D. 03/26/2020 G47.33 Obstructive sleep apnea (adult) (pediatric) Phuc Winchester M.D. 03/26/2020 R41.3 Other amnesia Phuc Winchester M.D. 03/26/2020 I25.10 Atherosclerotic heart disease of [place] coronary artery with Phuc Winchester M.D. 02/22/2020 G47.33 Obstructive sleep [...]
--- OUTSIDE RECORDS SUMMARY | 2020-06-20 11:11 | CCD ---
Author Author [facility] Organization [facility] Address Unknown Phone Unavailable Care Team Providers Care Propagation Manager Name Role Phone Matt CAMARILLO MD Unavailable Unavailable Matt CAMARILLO MD Unavailable Unavailable Matt CAMARILLO MD Unavailable Unavailable Matt CAMARILLO MD Unavailable Unavailable Matt CAMARILLO MD Unavailable Unavailable Matt CAMARILLO MD Unavailable Unavailable Matt CAMARILLO MD Unavailable Unavailable Matt CAMARILLO MD Unavailable Unavailable Matt CAMARILLO MD Unavailable Unavailable Matt CAMARILLO MD Unavailable Unavailable Matt CAMARILLO MD Unavailable Unavailable Matt CAMARILLO MD Unavailable Unavailable Matt CAMARILLO MD Unavailable Unavailable Matt CAMARILLO MD Unavailable Unavailable Matt CAMARILLO MD Unavailable Unavailable Matt CAMARILLO MD Unavailable Unavailable Matt CAMARILLO MD Unavailable Unavailable Matt CAMARILLO MD Unavailable Unavailable Matt CAMARILLO MD Unavailable Unavailable Matt CAMARILLO MD Unavailable Unavailable Matt CAMARILLO MD Unavailable Unavailable Matt CAMARILLO MD Unavailable Unavailable Matt CAMARILLO MD Unavailable Unavailable Matt CAMARILLO MD Unavailable Unavailable Matt CAMARILLO MD Unavailable Unavailable Matt CAMARILLO MD Unavailable Unavailable Matt CAMARILLO MD Unavailable Unavailable Matt CAMARILLO MD Unavailable Unavailable Matt CAMARILLO MD Unavailable Unavailable Matt CAMARILLO MD Unavailable Unavailable Matt CAMARILLO MD Unavailable Unavailable Matt CAMARILLO MD Unavailable Unavailable Matt CAMARILLO MD Unavailable Unavailable Matt CAMARILLO MD Unavailable Unavailable Matt CAMARILLO MD Unavailable Unavailable Matt CAMARILLO MD Unavailable Unavailable OSIRIS, GERONIMO AURORA CRM ADMINISTRATOR-C Unavailable Unavailable OSIRIS, GERONIMO AURORA CRM ADMINISTRATOR-C Unavailable Unavailable OSIRIS, GERONIMO AURORA CRM ADMINISTRATOR-C Unavailable Unavailable OSIRIS, GERONIMO AURORA CRM ADMINISTRATOR-C Unavailable Unavailable OSIRIS, GERONIMO AURORA CRM ADMINISTRATOR-C Unavailable Unavailable OSIRIS, GERONIMO AURORA CRM ADMINISTRATOR-C Unavailable Unavailable OSIRIS, GERONIMO AURORA CRM ADMINISTRATOR-C Unavailable Unavailable OSIRIS, GERONIMO AURORA CRM ADMINISTRATOR-C Unavailable Unavailable OSIRIS, GERONIMO AURORA CRM ADMINISTRATOR-C Unavailable Unavailable OSIRIS, GERONIMO AURORA CRM ADMINISTRATOR-C Unavailable Unavailable OSIRIS, GERONIMO AURORA CRM ADMINISTRATOR-C Unavailable Unavailable OSIRIS, GERONIMO AURORA CRM ADMINISTRATOR-C Unavailable Unavailable OSIRIS, GERONIMO AURORA CRM ADMINISTRATOR-C Unavailable Unavailable OSIRIS, GERONIMO AURORA CRM ADMINISTRATOR-C Unavailable Unavailable OSIRIS, GERONIMO AURORA CRM ADMINISTRATOR-C Unavailable Unavailable OSIRIS, GERONIMO AURORA CRM ADMINISTRATOR-C Unavailable Unavailable Toño Winchester MD Unavailable Unavailable Toño Winchester MD Unavailable Unavailable Toño Winchester MD Unavailable Unavailable Toño Winchester MD Unavailable Unavailable Toño Winchester MD Unavailable Unavailable Toño Winchester MD Unavailable Unavailable Toño Winchester MD Unavailable Unavailable Toño Winchester MD Unavailable Unavailable Toño Winchester MD Unavailable Unavailable Toño Winchester MD Unavailable Unavailable Toño Winchester MD Unavailable Unavailable Toño Winchester MD Unavailable Unavailable Toño Winchester MD Unavailable Unavailable Toño Winchester MD Unavailable Unavailable Toño Winchester MD Unavailable Unavailable Toño Winchester MD Unavailable Unavailable White F Phuc Unavailable Unavailable White F Phuc Unavailable Unavailable White F Phuc Unavailable Unavailable White F Phuc Unavailable Unavailable White F Phuc Unavailable Unavailable White F Phuc Unavailable Unavailable White F Phuc Unavailable Unavailable White, F Phuc Unavailable Unavailable White F Phuc Unavailable Unavailable White F Phuc Unavailable Unavailable White F Phuc Unavailable Unavailable White F Phuc Unavailable Unavailable White F Phuc Unavailable Unavailable White F Phuc Unavailable Unavailable White F Phuc Unavailable Unavailable White, F Phuc Unavailable Unavailable White, F Phuc Unavailable Unavailable White, F Phuc Unavailable Unavailable White, F Phuc Unavailable Unavailable White F Phuc Unavailable Unavailable White F Phuc Unavailable Unavailable White F Phucjavan NEWMAN Unavailable Unavailable White F Phuc Unavailable Unavailable White F Phuc NEWMAN Unavailable Unavailable White F Phuc NEWMAN Unavailable Unavailable White F Phuc NEWMAN Unavailable Unavailable White F Phuc NEWMAN Unavailable Unavailable White F Phuc NEWMAN Unavailable Unavailable White F Phuc NEWMAN Unavailable Unavailable White F Phuc NEWMAN Unavailable Unavailable White F Phuc NEWMAN Unavailable Unavailable White F Phuc NEWMAN Unavailable Unavailable White F Phuc NEWMAN Unavailable Unavailable Annabella F Phuc NEWMAN Unavailable Unavailable Annabella F Phuc NEWMAN Unavailable Unavailable Annabella F Phuc NEWMAN Unavailable Unavailable Annabella F Phuc NEWMAN Unavailable Unavailable White F Phuc NEWMAN Unavailable Unavailable White F Phuc NEWMAN Unavailable Unavailable Annabella F Phuc NEWMAN Unavailable Unavailable Annabella F Phuc NEWMAN Unavailable Unavailable Annabella F Phuc NEWMAN Unavailable Unavailable Annabella F Phuc NEWMAN Unavailable Unavailable Annabella F Phuc NEWMAN Unavailable Unavailable Annabella F Phuc NEWMAN Unavailable Unavailable Annabella F Phuc NEWMAN Unavailable Unavailable Annabella F Phuc NEWMAN Unavailable Unavailable Annabelal F Phuc NEWMAN Unavailable Unavailable Annabella F Phuc NEWMAN Unavailable Unavailable Annabella F Phuc NEWMAN Unavailable Unavailable Annabella F Phuc NEWMAN Unavailable Unavailable Annabella F Phuc NEWMAN Unavailable Unavailable Annabella F Phuc NEWMAN Unavailable Unavailable Annabella F Phuc NEWMAN Unavailable Unavailable Annabella F Phuc NEWMAN Unavailable Unavailable Annabella F Phuc NEWMAN Unavailable Unavailable Annabella F Phuc NEWMAN Unavailable Unavailable Annabella F Phuc NEWMAN Unavailable Unavailable Mela LY MD Unavailable Unavailable Mela LY MD Unavailable Unavailable Mela LY MD Unavailable Unavailable Mela LY MD Unavailable Unavailable MALACHI, Mela PAYAN MD Unavailable Unavailable MALACHI, Mela PAYAN MD Unavailable Unavailable MALACHI, Mela PAYAN MD Unavailable Unavailable MALACHI, Mela PAYAN MD Unavailable Unavailable MALACHI, Mela PAYAN MD Unavailable Unavailable MALACHI, Mela PAYAN MD Unavailable Unavailable MALACHI, Mela PAYAN MD Unavailable Unavailable MALACHI, Mela PAYAN MD Unavailable Unavailable MALACHI, Mela PAYAN MD Unavailable Unavailable MALACHI, Mela PAYAN MD Unavailable Unavailable MALACHI, Mela PAYAN MD Unavailable Unavailable MALACHI, Mela PAYAN MD Unavailable Unavailable MALACHI, Mela PAYAN MD Unavailable Unavailable MLAACHI, Mela PAYAN MD Unavailable Unavailable MALACHI, Mela PAYAN MD Unavailable Unavailable MALACHI, Mela PAYAN MD Unavailable Unavailable MALACHI, Mela PAYAN MD Unavailable Unavailable MALACHI, Mela PAYAN MD Unavailable Unavailable MALACHI, Mela PAYAN MD Unavailable Unavailable MALACHI, Mela PAYAN MD Unavailable Unavailable MALACHI, Mela PAYAN MD Unavailable Unavailable MALACHI, Mela PAYAN MD Unavailable Unavailable MALACHI, Mela PAYAN MD Unavailable Unavailable MALACHI, Mela PAYAN MD Unavailable Unavailable MALACHI, Mela PAYAN MD Unavailable Unavailable MALACHI, Mela PAYAN MD Unavailable Unavailable MALACHI, Mela PAYAN MD Unavailable Unavailable MALACHI, Mela PAYAN MD Unavailable Unavailable MALACHI, Mela PAYAN MD Unavailable Unavailable MALACHI, Mela PAYAN MD Unavailable Unavailable MALACHI, Mela PAYAN MD Unavailable Unavailable MALACHI, Mela PAYAN MD Unavailable Unavailable MALACHI, Mela PAYAN MD Unavailable Unavailable MALACHI, Mela PAYAN MD Unavailable Unavailable MALACHI, Mela PAYAN MD Unavailable Unavailable MALACHI, Mela PAYAN MD Unavailable Unavailable MALACHI, Mela PAYAN MD Unavailable Unavailable MALACHI, Mela PAYAN MD Unavailable Unavailable MALACHI, Mela PAYAN MD Unavailable Unavailable MALACHI, Mela PAYAN MD Unavailable Unavailable MALACHI, Mela PAYAN MD Unavailable Unavailable MALACHI, Mela PAYAN MD Unavailable Unavailable MALACHI, Mela PAYAN MD Unavailable Unavailable MALACHI, Mela PAYAN MD Unavailable Unavailable MALACHI, Mela PAYAN MD Unavailable Unavailable MALACHI, Mela PAYAN MD Unavailable Unavailable MALACHI, Mela PAYAN MD Unavailable Unavailable MALACHI, Mela PAYAN MD Unavailable Unavailable MALACHI, Mela PAYAN MD Unavailable Unavailable MALACHI, Mela PAYAN MD Unavailable Unavailable MALACHI, Mela PAYAN MD Unavailable Unavailable MALACHI, Mela PAYAN MD Unavailable Unavailable MALACHI, Mela PAYAN MD Unavailable Unavailable MALACHI, Mela PAYAN MD Unavailable Unavailable MALACHI, Mela PAYAN MD Unavailable Unavailable MALACHI, Mela PAYAN MD Unavailable Unavailable Mela LY MD Unavailable Unavailable Mela LY MD Unavailable Unavailable Mela LY MD Unavailable Unavailable Mela LY MD Unavailable Unavailable Mela LY MD Unavailable Unavailable Mela LY MD Unavailable Unavailable Mela LY MD Unavailable Unavailable Mela LY MD Unavailable Unavailable Mela LY MD Unavailable Unavailable Mela LY MD Unavailable Unavailable Mela LY MD Unavailable Unavailable Mela LY MD Unavailable Unavailable Mela LY MD Unavailable Unavailable Mela LY MD Unavailable Unavailable Mela LY MD Unavailable Unavailable Mela LY MD Unavailable Unavailable Cathy Sanders MD Unavailable Unavailable AliCathy MD Unavailable Unavailable AliCathy MD Unavailable Unavailable AliCathy MD Unavailable Unavailable AliCathy MD Unavailable Unavailable AliCathy MD Unavailable Unavailable AliCathy MD Unavailable Unavailable AliCathy MD Unavailable Unavailable AliCathy MD Unavailable Unavailable AliCathy MD Unavailable Unavailable AliCathy MD Unavailable Unavailable AliCathy MD Unavailable Unavailable AliCathy MD Unavailable Unavailable AliCathy MD Unavailable Unavailable AliCathy MD Unavailable Unavailable AliCathy MD Unavailable Unavailable AliCathy MD Unavailable Unavailable AliCathy MD Unavailable Unavailable AliCathy MD Unavailable Unavailable AliCathy MD Unavailable Unavailable AliCathy MD Unavailable Unavailable AliCathy MD Unavailable Unavailable AliCathy MD Unavailable Unavailable AliCathy MD Unavailable Unavailable AliCathy MD Unavailable Unavailable AliCathy MD Unavailable Unavailable Cathy Sanders MD Unavailable Unavailable Cathy Sanders MD Unavailable Unavailable Cathy Sanders MD Unavailable Unavailable Cathy Sanders MD Unavailable Unavailable Cathy Sanders MD Unavailable Unavailable Cathy Sanders MD Unavailable Unavailable Cathy Sanders MD Unavailable Unavailable Cathy Sanders MD Unavailable Unavailable Cathy Sanders MD Unavailable Unavailable Cathy Sanders MD Unavailable Unavailable Cathy Sanders MD Unavailable Unavailable Cathy Sanders MD Unavailable Unavailable Cathy Sanders MD Unavailable Unavailable Cathy Sanders MD Unavailable Unavailable Cathy Sanders MD Unavailable Unavailable Cathy Sanders MD Unavailable Unavailable Cathy Sanders MD Unavailable Unavailable Cathy Sanders MD Unavailable Unavailable Cathy Sanders MD Unavailable Unavailable Cathy Sanders MD Unavailable Unavailable Cathy Sanders MD Unavailable Unavailable Cathy Sanders MD Unavailable Unavailable Cathy Sanders MD Unavailable Unavailable Seven Valleys, Andres MD Unavailable Unavailable Seven Valleys, Andres MD Unavailable Unavailable Seven Valleys, Andres MD Unavailable Unavailable Seven Valleys, Andres MD Unavailable Unavailable Seven Valleys, Andres MD Unavailable Unavailable Seven Valleys, Andres MD Unavailable Unavailable Seven Valleys, Andres MD Unavailable Unavailable Seven Valleys, Andres MD Unavailable Unavailable Seven Valleys, Andres MD Unavailable Unavailable Seven Valleys, Andres MD Unavailable Unavailable Seven Valleys, Andres MD Unavailable Unavailable Seven Valleys, Andres MD Unavailable Unavailable Seven Valleys, Andres MD Unavailable Unavailable Seven Valleys, Andres MD Unavailable Unavailable Seven Valleys, Andres MD Unavailable Unavailable Seven Valleys, Andres MD Unavailable Unavailable Seven Valleys, Andres MD Unavailable Unavailable Seven Valleys, Andres MD Unavailable Unavailable Seven Valleys, Andres MD Unavailable Unavailable Seven Valleys, Andres MD Unavailable Unavailable Seven Valleys, Andres MD Unavailable Unavailable Seven Valleys, Andres MD Unavailable Unavailable Seven Valleys, Andres MD Unavailable Unavailable Seven [place], Andres MD Unavailable Unavailable Seven [place], Andres MD Unavailable Unavailable Seven [place], Andres MD Unavailable Unavailable Seven [place], Andres MD Unavailable Unavailable Seven [place], Andres MD Unavailable Unavailable AliCathy MD Unavailable Unavailable Ali, Cathy NEWMAN Unavailable Unavailable AliCathy MD Unavailable Unavailable Ali, Cathy NEWMAN Unavailable Unavailable Ali, Cathy NEWMAN Unavailable Unavailable Ali, Cathy NEWMAN Unavailable Unavailable Ali, Cathy NEWMAN Unavailable Unavailable Ali, Cathy NEWMAN Unavailable Unavailable AliCathy MD Unavailable Unavailable Ali, Cathy NEWMAN Unavailable Unavailable Ali, Cathy NEWMAN Unavailable Unavailable Ali, Cathy NEWMAN Unavailable Unavailable Ali, Cathy NEWMAN Unavailable Unavailable Ali, Cathy MD Unavailable Unavailable Ali, Cathy NEWMAN Unavailable Unavailable Ali, Cathy NEMWAN Unavailable Unavailable AliCathy MD Unavailable Unavailable AliCathy MD Unavailable Unavailable AliCathy MD Unavailable Unavailable AliCathy MD Unavailable Unavailable AliCathy MD Unavailable Unavailable Ali, Cathy NEWMAN Unavailable Unavailable Ali, Cathy MD Unavailable Unavailable Ali, Cathy NEWMAN Unavailable Unavailable Ali, Cathy NEWMAN Unavailable Unavailable Ali, Cathy NEWMAN Unavailable Unavailable AliCathy MD Unavailable Unavailable AliCathy MD Unavailable Unavailable Ali, Cathy NEWMAN Unavailable Unavailable Ali, Cathy MD Unavailable Unavailable Ali, Cathy NEWMAN Unavailable Unavailable Ali, Cathy MD Unavailable Unavailable Ali, Cathy MD Unavailable Unavailable AliCathy MD Unavailable Unavailable Ali, Cathy NEWMAN Unavailable Unavailable Ali, Cathy NEWMAN Unavailable Unavailable AliCathy MD Unavailable Unavailable Ali, Cathy NEWMAN Unavailable Unavailable Ali, Cathy NEWMAN Unavailable Unavailable Ali, Cathy MD Unavailable Unavailable Ali, Cathy MD Unavailable Unavailable Ali, Cathy MD Unavailable Unavailable Ali, Cathy MD Unavailable Unavailable Ali, Cathy MD Unavailable Unavailable Ali, Cathy MD Unavailable Unavailable Ali, Cathy MD Unavailable Unavailable Ali, Cathy MD Unavailable Unavailable Ali, Cathy MD Unavailable Unavailable Ali, Cathy MD Unavailable Unavailable Re-disclosure Warning The records that you are about to access may contain information from federally-assisted alcohol or drug abuse programs. If such information is present, then the following federally mandated warning applies: This information has been disclosed to you from records protected by federal confidentiality rules (42 CFR part 2). The federal rules prohibit you from making any further disclosure of this information unless further disclosure is expressly permitted by the written consent of the person to whom it pertains or as otherwise permitted by 42 CFR part 2. A general authorization for the release of medical or other information is NOT sufficient for this purpose. The Federal rules restrict any use of the information to criminally investigate or prosecute any alcohol or drug abuse patient.The records that you are about to access may contain highly sensitive health information, the redisclosure of which is protected by Article 27-F of the [facility] Public Health law. If you continue you may have access to information: Regarding HIV / AIDS; Provided by facilities licensed or operated by the [facility] Office of Mental Health; or Provided by the [facility] Office for People With Developmental Disabilities. If such information is present, then the following [facility] mandated warning applies: This information has been disclosed to you from confidential records which are protected by state law. State law prohibits you from making any further disclosure of this information without the specific written consent of the person to whom it pertains, or as otherwise permitted by law. Any unauthorized further disclosure in violation of state law may result in a fine or usp sentence or both. A general authorization for the release of medical or other information is NOT sufficient authorization for further disc losure. Allergies and Adverse Reactions Type Description Substance Reaction Status Data Source(s ) Food allergy SHRIMP SHRIMP ANAPHYLAXIS Surveyor [facility] Drug allergy IODINE IODINE Surveyor Are a Hospital Family History Family Member Name Family Member Gender Family Member Status Date o f Status Description Data Source(s) Unknown Unknown Problem [facility] ([facility], ) father, brothers Unknown Male Problem MEDENT ([facility]) () Unknown Female Problem [facility] ([facility]) Unknown Unknown Problem [facility] ([facility]) Unknown Unknown Problem [facility] ([facility]) Unknown Unknown Problem [facility] ([facility]) 1/2 brother Encounters Encounter Providers Location Date Indications Data Source(s ) Outpatient Attender: ORA ALVAREZBF 06/19/2020 12:00:00 AM EST [facility] Outpatient Attender: Andres Green/Crista/Tobin/Omerd l 06/03/2020 01:40:00 PM EST [facility] ([facility], ) Outpatient Attender: Andres Green/Crista/Tobin/Sharifa dahl 04/26/2020 12:00:00 PM EST [facility] ([facility], ) Office Visit Attender: Phuc Meade 03/26 10:30:00 AM EST MED[facility] ([facility] ) Outpatient Attender: AURORA Green/Crista/Tobin/R eindl 03/13/2020 09:00:00 AM EST [facility] ([facility], ) Outpatient Attender: Cathy Sanders MD Main office - [place] 02/15/2020 10:45:00 AM EDT [facility] ([facility] Outpatient Attender: ORA THOMAS.[facility] 01/19/2020 12:00:00 AM EDT [facility] Office Visit Attender: Phuc Meade 12/28 11:30:00 AM EDT MEDENT ([facility] ) Outpatient Attender: Cathy Sanders MD Main office - [place] 11/14/2019 12:45:00 PM EDT [facility] ([facility] Office Visit Attender: Cathy Sanders MD Main office - [place] 09/28/2019 01:30:00 PM EDT [facility] ([facility] Outpatient Attender: Cathy Sanders MDConsultant: OSMAN CAMARILLO MD 08/03/2019 11:20:00 AM EDT - 08/03/2019 12:20:00 PM EDT [facility] Outpatient Attender: ORA LY MD BF-BF 07/18/2019 12:00:00 AM EDT [facility] Outpatient Attender: Phuc Meade 04/26 10:30:00 AM EST MEDENT ([facility] ) Immunizations Vaccine Date Status Description Data Source(s) This CVX code allows reporting of a vacc ination when formulation is unknown (for example, when recording a Influenza vaccination when noted on a vaccination card) 02/19/2020 08:19:00 AM EDT completed MEDEN T ([facility]) Medications Medication Brand Name Start Date Product Form Dose Route Admi nistrative Instructions Pharmacy Instructions Status Indications Reaction Description Data Source(s) 100 mcg/0.5 mL 05/25/2020 12:00:00 AM EST suspension 0 INJECT BY [facility] (FIRST DOSE) INJECT BY [facility] (FIRST DOSE) SOLD: 05/25/2020 [facility] Omeprazole 40 MG Delayed Release Oral Capsule Omeprazole 04/26/2020 12:00:00 AM EST ORAL active MEDENT ([facility], ) Ipratropium [place] Ipratropium [place] 04/26/2020 12:00:00 AM EST active MEDENT ([facility], ) 200 ACTUAT Ipratropium [place] 0.017 MG/ACTUAT Metered Dose Inhaler [Atrovent] Atrovent HFA 04/26/2020 12:00:00 AM EST completed MEDENT ([facility], ) Flonase Allergy Relief Flonase Allergy Relief 04/01/2020 12:00:[address] active MEDENT ([facility]) Memantine hydrochloride 10 MG Oral Tablet Memantine HCL 12/29/2019 12:00:00 AM EDT ORAL active [facility]) Memantine hydrochloride 10 MG Oral Tablet Memantine HCL 11/14/2019 12:00:00 AM EDT ORAL active MEDENT ([facility], ) Famotidine 20 MG Oral Tablet [Pepcid] Pepcid 10/26/2019 12:00:00 AM EDT ORAL active MEDENT ([facility]) Donepezil hydrochloride 10 MG Oral Tablet Donepezil HCL 09/28/2019 12:00:00 AM EDT ORAL active MEDENT ([facility]) Famotidine 20 MG Oral Tablet Famotidine 05/08/2019 12:00:00 AM EST ORAL active MEDENT ([facility]) Insurance Providers Payer name Policy type / Coverage type Policy ID Covered constitution party ID Covered constitution party's relationship to talbot Policy Talbot Plan Information FOR LIFE [id number] SP [id number] MEDICARE [id number] SP [id number] MEDICARE [id number] Yasmin [id number] [id number] Yasmin [id number] FOR LIFE -O/P [id number] 18 [id number] MEDICARE PART A -O/P [id number] 18 [id number] [place] Medigap Part B [id number] Family Depe ndent [id number] WPS For Life Medigap Part B [id number] Self [id number] Medicare Natl Govt Servic Medicare Primary [id number] Self [id number] [place] Medigap Part B [id number] Family Dep endent [id number] [facility] [id number] Yasmin [id number] BS [place] Medigap Part B [id number] Family Depe ndent [id number] WPS For Life Medigap Part B [id number] Self [id number] Medicare Natl Govt Servic Medicare Primary [id number] Self [id number] WPS For Life Medigap Part B [id number] Self [id number] [place] Medicare Primary [id number] Self [id number] [facility] Health Maintenance Organization (HMO) [id number] Family Dependent [id number] [place] Medigap Part B [id number] Family Depe ndent [id number] WPS For Life Medigap Part B [id number] Self [id number] Medicare Natl Govt Servic Medicare Primary [id number] Self [id number] MEDICARE [id number] SP [id number] FOR LIFE [id number] SP [id number] MEDICARE [id number] SP [id number] A WPS For Life Medigap Part B [id number] Self [id number] [place] Medicare Primary [id number] Self [id number] [employer] Health Maintenance Organization (HMO) [id number] Family Dependent [id number] [place] Commercial [id number] Family Dependen t [id number] WPS For Life Medigap Part B [id number] Self [id number] Medicare Natl Govt Servic Medicare Primary [id number] Self [id number] MEDICARE [id number] Yasmin [id number] A BS [place] Trad/[place] Commercial [id number] Family Dependen t [id number] WPS For Life Medigap Part B [id number] Self [id number] Medicare Natl Govt Servic Medicare Primary [id number] Self [id number] For Life WPS Medigap Part B [id number] Self [id number] Medicare Natl Gov't Servi Medicare Primary [id number] Self [id number] MEDICARE [id number] SP [id number] A BS [place] Commercial [id number] Family Dependen t [id number] WPS For Life Medigap Part B [id number] Self [id number] Medicare Natl Govt Servic Medicare Primary [id number] Self [id number] BS [place] Medigap Part B [id number] Family Depend ent [id number] BS [place] Trad/[place] Commercial 802 Family Dependent 802 WPS For Life Medigap Part B Self Medicare Natl Govt Servic Medicare Primary Self For Life WPS Medigap Part B Self Medicare Natl Gov't Servi Medicare Primary Self For Life Medigap Part B Self [place] Self [place] [id number] [id number] FOR LIFE -I/P [id number] 18 [id number] MEDICARE PART A -I/P [id number] 18 [id number] A [id number] Problems, Conditions, and Diagnoses Code Display Name Description Problem Type Effective Dates Data Source(s) 114033756 History of cerebrovascular accident with out residual deficits History of cerebrovascular accident without residual deficits Problem 07/04/2019 12:00:00 AM EST [facility] ([facility], ) [id number] 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 Pr oblem 07/04/2019 12:00:00 AM EST [facility] ([facility], ) 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 Problem 07/04/2019 12:00:00 AM EST [facility] ([facility], ) [id number] Mild cognitive disorder Mild cognitive disorder Proble m 07/04/2019 12:00:00 AM EST [facility] ([facility] ) 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 Diagnosis 08/03/2019 11:20:00 AM EDT [facility] E039 Hypothyroidism, unspecified Hypothyroidism, unspecifie d Diagnosis 08/03/2019 11:20:00 AM EDT [facility] 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 [place] Diagnosis 07/18/2019 04:27:03 PM EDT [facility] Surgeries/Procedures Procedure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 [facility] ([facility]) MCV 87.7 fL 80.0-97.0 [facility] Hemoglobin [Mass/volume] in Blood 13.1 g/dL 12.0-18.0 [facility] ([facility]) MCHC 33.0 g/dL 31.0-38.0 [facility]) MCH 29.0 pg 26.0-32.0 [facility]) Erythrocyte distribution width [Ratio] by Automated count 13.6 % 11.6-13.7 [facility] ([facility]) Platelets [#/volume] in Blood by Automated count 183 x10*3/UL 140-440 [facility] ([facility]) MPV 8.2 FL 7.8-11.0 [facility] [facility]) Lymph % 24.9 % 10.0-58.5 [facility] [facility]) Mid % 7.7 % 1.7-9.3 [facility] [facility]) Mid # 0.6 x10*3/UL 0.1-0.6 [facility] ([facility]) Neut % 67.4 % 37.0-92.0 [facility] Lymph # 1.5 x10*3/UL 0.6-4.1 [facility] ([facility]) Neut # 4.3 x10*3/UL 2.0-7.8 [facility] ([facility]) ID Date Data Source [id number] 08/03/2019 11:40:00 AM EDT [facility] ([facility], ) Name Value Range Interpretation Code Description Data Rosaline rce(s) Supporting Document(s) Laboratory test finding (navigational concept) Laboratory test result [facility] ([facility]) Test(s) 631732-Xxtqbjs E(Alpha Tocophero l); 646636- Vitamin E(Gamma Tocopherol); 546674-Bktkglg B6 was developed and its performance characteristics determined by [employer]. It has not been cleared or approved by the Food and Drug Administration. Vitamin E(AlphaTocopherol) 10.5 mg/L 9.0-29.0 [facility] ([facility], ) Vitamin E(GammaTocopherol) 0.9 mg/L 0.5-4.9 [facility] ([facility]) Reference intervals for alpha and gamma- tocopherol determined from National Health and Nutrition Examination Survey, 1020-7664. Individuals with alpha-tocopherol levels less than 5.0 mg/L are considered vitamin E deficient. ID Date Data Source [id number] 08/03/2019 11:40:00 AM EDT [facility] ([facility], ) Name Value Range Interpretation Code Description Data Rosaline rce(s) Supporting Document(s) Pyridoxine [Mass/volume] in Serum or Plasma 25.9 ug/L 5.3-46.7 [facility] ([facility]) ID Date Data Source [id number] 08/03/2019 11:40:00 AM EDT [facility] ([facility]) Name Value Range Interpretation Code Description Data Rosaline rce(s) Supporting Document(s) Laboratory test finding (navigational concept) Laboratory test result [facility] ([facility]) Test(s) 648881-Dou. B1, Whole Blood was developed and its performance characteristics determined by [employer]. It has not been cleared or approved by the Food and Drug Administration. Laboratory test finding (navigational concept) 126.3 nmol/L 66.5-200. 0 [facility] ([facility], ) ID Date Data Source [id number] 08/03/2019 11:40:00 AM EDT [facility] ([facility], ) Name Value Range Interpretation Code Description Data Rosaline rce(s) Supporting Document(s) Cobalamin (Vitamin B12) [Mass/volume] in Serum or Plasma 694 pg/mL 2 32-1245 [facility] ([facility], ) Thyrotropin [Units/volume] in Serum or Plasma 1.24 uIU/mL 0.47-5.01 [facility] ([facility]) Folate [Mass/volume] in Serum or Plasma Laboratory test result 5.6-45 .8 [facility] ([facility]) ID Date Data Source [id number] 08/07/2019 08:34:00 PM EDT [facility] Name Value Range Interpretation Code Description Data Rosaline rce(s) Supporting Document(s) VITAMIN E [facility] al Test(s) 681138-Tjmjwye E(Alpha Tocophero l); 222210-Tzvevhz E(Gamma Tocopherol); 718993-Kbnnxue B6was developed and its performance characteristics determinedby [facility]. It has not been cleared or approved by the Foodand Drug Administration. Alpha tocopherol [Mass/volume] in Serum or Plasma 10.5 mg/L 9.0-29.0 [facility] Gamma tocopherol [Mass/volume] in Serum or Plasma 0.9 mg/L 0.5-4.9 [facility] Reference intervals for alpha and gamma- tocopherol determined [place] Health and Nutrition Examination Survey, 3855-0113.Individuals with alpha- tocopherol levels less than 5.0 mg/L areconsidered vitamin E deficient. ID Date Data Source [id number] 08/07/2019 12:26:00 AM EDT [facility] Name Value Range Interpretation Code Description Data Rosaline rce(s) Supporting Document(s) Pyridoxine [Mass/volume] in Serum or Plasma 25.9 ug/L 5.3-46.7 [facility] ID Date Data Source [id number] 08/05/2019 07:53:00 AM EDT [facility] Name Value Range Interpretation Code Description Data Rosaline rce(s) Supporting Document(s) VITAMIN B-1 WHOLE BLOOD [facility] Test(s) 699749-Uuy. B1, Whole Bloodwas d elieloped and its performance characteristics determinedby [facility]. It has not been cleared or approved by the Foodand Drug Administration. Thiamine [Moles/volume] in Blood 126.3 nmol/L 66.5-200.0 [facility] ID Date Data Source [id number] 08/03/2019 01:48:[address] [facility] Value Range Interpretation Code Description Data Rosaline rce(s) Supporting Document(s) Folate [Mass/volume] in Serum or Plasma >20.0 NG/ML 5.6 - 45.8 [facility] ID Date Data Source [id number] 08/03/2019 01:11:[address] [facility] Value Range Interpretation Code Description Data Rosaline rce(s) Supporting Document(s) Thyrotropin [Units/volume] in Serum or Plasma by Detec tion limit <= 0.05 mIU/L 1.24 uIU/mL 0.47 - 5.01 [facility] ID Date Data Source [id number] 08/03/2019 01:11:[address] [facility] Value Range Interpretation Code Description Data Rosaline rce(s) Supporting Document(s) Cobalamin (Vitamin B12) [Mass/volume] in Serum or Plasma 694 PG/ML 232 - 1245 [facility] ID Date Data Source [id number] 07/18/2019 05:09:18 PM EDT [facility] INFORMATIONPatient MRN Name Date of Age Gend*PT [id number] Leon Cooper 1930 88 years M ---PT Location Admission Date/Time Visit ID Attending Provider --- --- --- --- EPI ID CSN Admitting Provider [id number] ---[facility] [id number], [address] (First Floor)[place], [place] [address]Xh.: Fax: Mardiology History and PhysicalName: Leon Cooper Gender: maleDate of : 1930 Age: 88 yearsPrimary Care Provider: TONY LOUISeferrshad Physician:Current HistoryChief Complaint: Here for follow-upHPI:This patient is a 88 years male with the followin. 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 Heunderwent aortic valve replacement and coronary artery bypass grafting with a#23 magna aortic valve. 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 Hyperlipidemia3. Essential hypertension4 Lewy body dementiaReview of Systems General Denies dizziness or lightheadedness. Denies any recent, unexpectedweight changes. Significant memory issues HEENT Denies any loss or change of vision. Denies tinnitus. Respiratory Denies PND, orthopnea, LAU, hemoptysis, cough, or shortness ofbreath. Cardiac Denies chest pain or pressure, denies palpitations GI Denies melena, hematochezia, nausea, or vomiting. MS Denies any lower extremity edema. Neuro Denies speech, motor, or sensory impairment. Psych Denies depression or anxiety. Endo Denies polyuria or polydipsia, denies temperature intolerance. Derm Denies diaphoresis, non-healing skin woundsPast HistoryPast Medical History:Diagnosis Date Aortic valve disease Arthritis CHF (congestive heart failure) CKD (chronic kidney disease), stage III COPD (chronic obstructive pulmonary disease) Coronary artery disease Dementia Falls Hypertension Macular degeneration Murmur, cardiac NU on CPAP Periodontal disease Renal calculiPast Surgical History:Procedure Laterality Date AORTIC VALVE REPLACEMENT 02/15/2012 CARDIAC SURGERY CORONARY ARTERY BYPASS GRAFT TONSILLECTOMYNo family history on file.Social HistorySocioeconomic History Marital status: Spouse name: Not on file Number of children: Not on file Years of education: Not on file Highest education level: Not on fileOccupational History Not on fileSocial Needs Financial resource strain: Not on file Food insecurity: Worry: Not on file Inability: Not on file Transportation needs: Medical: Not on file Non-medical: Not on fileTobacco Use Smoking status: Former Smoker Smokeless tobacco: Never UsedSubstance and Sexual Activity Alcohol use: No Drug use: No Sexual activity: Not on fileLifestyle Physical activity: Days per week: Not on file Minutes per session: Not on file Stress: Not on fileRelationships Social connections: Talks on phone: Not on file Gets together: Not on file Attends anabaptism service: Not on file Active member of club or organization: Not on file Attends meetings of clubs or organizations: Not on file Relationship status: Not on file Intimate partner violence: Fear of current or ex partner: Not on file Emotionally abused: Not on file Physically abused: Not on file Forced sexual activity: Not on fileOther Topics Concern Not on fileSocial History Narrative Not on fileMedications and AllergiesALLERGIES/SENSITIVITIES: is allergic to oxacillin and shellfish-derivedproducts.Current Outpatient MedicationsMedication Sig Dispense Refill famotidine (PEPCID) 20 MG tablet Take 20 mg by mouth daily aspirin EC 81 MG EC tablet Take 81 mg by mouth daily atorvastatin (LIPITOR) 40 MG tablet Take 40 mg by mouth daily DAILY SEBASTIÁN (THERAGRAN) per tablet Take 1 tablet by mouth daily lisinopril (PRINIVIL,ZESTRIL) 10 MG tablet Take 10 mg by mouth daily meclizine (ANTIVERT) 12.5 MG tablet Take 12.5 mg by mouth 3 (three) times aday as needed metoprolol (LOPRESSOR) 25 MG tablet Take 25 mg by mouth 2 (two) times a day NON FORMULARY Uses cpap qhsNo current facility-administered medications for this visit.PhysicalVitals: 07/18/19 1640BP: 110/70Pulse: 66Weight: 68.5 kg (151 lb)Physical Exam General Well developed, well nourished, no acute distress Neck Soft and supple without lymphadenopathy or thyromegaly. No JVD. Nobruits. Chest Non-tender to palpation Lungs Clear to auscultation, no crackles, rhonchi, or wheezes Heart Normal S1 S2, no murmurs, clicks, or gallops Abdomen Soft, non-tender, non-distended, no palpable HSM or masses, + bowelsounds Musculoskeletal Appears to have normal range of motion x 4 extremities, nojoint swelling. No pedal edema Neuro Alert, oriented x1 Derm No rashes, or ulcers Vascular Chapo's test is normal bilaterally.DiagnosticsEKG:EKG Results (Last 72 hours) 07/18/19 1658 POCT AMB EKG Final result Impression: Sinus rhythm with nonspecific repolarization abnormalitiesAssessment & Plan1. Aortic valve replacement/coronary artery bypass grafting: Patient isasymptomatic and quite active2. Dementia this is a new diagnosis and unfortunately this is starting toaffect him and his is becoming his caretaker grounds.I will see him again in a year unless he has problems between now and then.Signature: Ora thomas, MDDate: July 18, 2019Time: 4:58 PMThis document or parts of this document, were dictated using [employer]. A reasonable attempt at proofreading has been made to minimize errors.Please call with any questions or corrections. Name Value Range Interpretation Code Description Data [facility] rce(s) Supporting Document(s) ID Date Data Source [id number] 05/29/2019 01:25:00 PM EST [facility] ([facility]) Name Value Range Interpretation Code Description Data Rosaline rce(s) Supporting Document(s) Glucose [Mass/volume] in Serum or Plasma 103 mg/dL 74-99 [facility] ([facility]) 100-125 mg/dL PRE-DIABETES/FASTING >126 mg/dL DIABETES/FASTING Urea nitrogen [Mass/volume] in Serum or Plasma 25 mg/dL 7-18 [facility] ([facility]) Potassium [Moles/volume] in Serum or Plasma 4.5 meq/L 3.5-5.1 [facility] ([facility]) Sodium [Moles/volume] in Serum or Plasma 139 meq/L 136-145 [facility] ([facility]) Creatinine 1.6 mg/dL 0.6-1.3 [facility] Chloride [Moles/volume] in Serum or Plasma 102 meq/L 98-107 [facility] ([facility]) Carbon dioxide, total [Moles/volume] in Serum or Plasma 28 meq/L 21 -32 [facility] ([facility]) Calcium [Mass/volume] in Serum or Plasma 9.2 mg/dL 8.5-10.1 [facility] ([facility]) Glomerular filtration rate/1.73 sq M pre dicted among non-blacks [Volume Rate/Area] in Serum or Plasma by Creatinine-based formula (MDRD) 41 mL/min [facility] ([facility]) Glomerular filtration rate/1.73 sq M pre dicted among blacks [Volume Rate/Area] in Serum or Plasma by Creatinine-based formula (MDRD) 50 mL/min [facility] ([facility]) <content>CHRONIC KIDNEY DISEASE STAGING PER NKF</content>
<content></content>
<content>STAGE I & II GFR >= 60 NORMAL TO MILDLY DECREASED</content>
<content>STAGE III GFR 30-59 MODERATELY DECREASED</content>
<content>STAGE IV GFR 15-29 SEVERELY DECREASED</content>
<content>STAGE V GFR <15 VERY LITTLE GFR LEFT</content>
<content>ESRD GFR <15 ON BEAD SUPERVISOR</content>
<content></content> ID Date Data Source [id number] 04/24/2019 11:16:00 AM EST [facility] ([facility]) Name Value Range Interpretation Code Description Data Rosaline rce(s) Supporting Document(s) Thyrotropin [Units/volume] in Serum or Plasma by Detec tion limit <= 0.05 mIU/L 1.46 uIU/mL 0.36-3.74 [facility] ([facility] ) ID Date Data Source [id number] 04/24/2019 11:16:00 AM EST [facility] ([facility]) Name Value Range Interpretation Code Description Data Rosaline rce(s) Supporting Document(s) Cholesterol [Mass/volume] in Serum or Plasma 129 mg/dL 131-200 [facility] ([facility]) Triglyceride [Mass/volume] in Serum or Plasma 52 mg/dL 30-150 [facility] ([facility]) Cholesterol in HDL [Mass/volume] in Serum or Plasma 55 mg/dL 35-60 [facility] ([facility]) Cholesterol in LDL [Mass/volume] in Serum or Plasma by calcu lation 64 CALC 50-159 [facility] ([facility]) ID Date Data Source [id number] 04/24/2019 11:16:00 AM EST [facility] ([facility]) Name Value Range Interpretation Code Description Data Rosaline rce(s) Supporting Document(s) Creatinine 1.6 mg/dL 0.6-1.3 [facility]) Glucose [Mass/volume] in Serum or Plasma 88 mg/dL 74-99 [facility] ([facility]) 100-125 mg/dL PRE-DIABETES/FASTING >126 mg/dL DIABETES/FASTING Urea nitrogen [Mass/volume] in Serum or Plasma 26 mg/dL 7-18 [facility] ([facility]) Chloride [Moles/volume] in Serum or Plasma 103 meq/L 98-107 [facility] ([facility]) Sodium [Moles/volume] in Serum or Plasma 141 meq/L 136-145 [facility] ([facility]) Potassium [Moles/volume] in Serum or Plasma 4.9 meq/L 3.5-5.1 [facility] ([facility]) Carbon dioxide, total [Moles/volume] in Serum or Plasma 27 meq/L 21 -32 [facility] ([facility]) Alkaline phosphatase isoenzyme [Units/volume] in Serum or Pl asma 97 mg/dL 46-116 [facility] Total Bilirubin 0.6 mg/dL 0.2-1.0 [facility] ([facility]) Calcium [Mass/volume] in Serum or Plasma 9.3 mg/dL 8.5-10.1 [facility] ([facility]) Aspartate aminotransferase [Enzymatic activity/volume] in Serum or Plasma 26 U/L 15-37 [facility] ([facility] ) Alanine aminotransferase [Enzymatic activity/volume] in Seru m or Plasma 40 U/L 12-78 [facility] ([facility]) Albumin [Mass/volume] in Serum or Plasma 3.8 g/dL 3.4-5.0 [facility] ([facility]) Glomerular filtration rate/1.73 sq M pre dicted among non-blacks [Volume Rate/Area] in Serum or Plasma by Creatinine-based formula (MDRD) 41 mL/min [facility] ([facility]) Proteinase 3 Ab [Units/volume] in Serum 8.3 g/dL 6.4-8.2 [facility] ([facility]) NOTE: RESULT VERIFIED. A/G Ratio 0.84 CALC 1.00-1.90 [facility] ([facility]) Glomerular filtration rate/1.73 sq M pre dicted among blacks [Volume Rate/Area] in Serum or Plasma by Creatinine-based formula (MDRD) 50 mL/min [facility] <content>CHRONIC KIDNEY DISEASE STAGING PER NKF</content>
<content></content>
<content>STAGE I & II GFR >= 60 NORMAL TO MILDLY DECREASED</content>
<content>STAGE III GFR 30-59 MODERATELY DECREASED</content>
<content>STAGE IV GFR 15-29 SEVERELY DECREASED</content>
<content>STAGE V GFR <15 VERY LITTLE GFR LEFT</content>
<content>ESRD GFR <15 ON BEAD SUPERVISOR</content>
<content></content> ID Date Data Source [id number] 04/24/2019 11:16:00 AM EST [facility] Name Value Range Interpretation Code Description Data Rosaline rce(s) Supporting Document(s) Leukocytes [#/volume] in Blood by Automated count 6.4 x10*3/UL 4.1-10 .9 [facility] Hemoglobin [Mass/volume] in Blood 13.5 g/dL 12.0-18.0 [facility] Hematocrit [Volume Fraction] of Blood by Automated count 40.6 % 3 7.0-51.0 [facility] Erythrocytes [#/volume] in Blood by Automated count 4.61 x10*6/UL 4.2 0-6.30 [facility] ([facility]) MCH 29.3 pg 26.0-32.0 [facility] ([facility]) MCHC 33.2 g/dL 31.0-38.0 [facility] MCV 88.0 fL 80.0-97.0 [facility] ([facility]) Erythrocyte distribution width [Ratio] by Automated count 13.0 % 11.6-13.7 [facility] Lymph % 22.9 % 10.0-58.5 [facility] Platelets [#/volume] in Blood by Automated count 209 x10*3/UL 140-440 [facility] ([facility]) MPV 8.1 FL 7.8-11.0 [facility]) Mid % 8.4 % 1.7-9.3 [facility] Lymph # 1.4 x10*3/UL 0.6-4.1 [facility] ([facility]) Neut % 68.7 % 37.0-92.0 [facility] [facility] Mid # 0.6 x10*3/UL 0.1-0.6 [facility] ([facility]) Neut # 4.4 x10*3/UL 2.0-7.8 [facility] ([facility]) Procedure Social History Code Duration Value Status Description Data Source(s ) Smoking 03/13/2020 12:00:00 AM EST - 05/10/1982 12:00:00 AM EST Patient is a former smoker completed Patient is a former smoker [facility] ([facility], ) Vital Signs ID Date Data Source UNK Name Value Range Interpretation Code Description Data Source(s) Body mass index (BMI) [Ratio] 19.5 kg/m2 19.5 k g/m2 [facility] ([facility]) Oxygen saturation in Arterial blood by Pulse oximetry 83 % 83 % [facility] ([facility]) 88-94 on 2 liters NC Body weight 110.00 [lb_av] 110.00 [lb_av] MEDEN T ([facility]) Body height 63.0 [in_i] 63.0 [in_i] [facility] ([facility]) 5'3" Heart rate 98 /min 98 /min [facility] ([facility]) Diastolic blood pressure 72 mm[Hg] 72 mm[Hg] [facility] ([facility]) Systolic blood pressure 122 mm[Hg] 122 mm[Hg] M EDENT ([facility]) Body surface area Derived from formula 1.63 m2 1.63 m2 [facility] Body weight 56.246 kg 56.246 kg [facility] ([facility]) Zenda body weight 142 [lb_av] 142 [lb_av] MED[facility] T ([facility]) Body mass index (BMI) [Ratio] 20.0 kg/m2 20.0 k g/m2 [facility] ([facility]) Body weight 124.00 [lb_av] 124.00 [lb_av] MED[facility] T ([facility]) Body height 66 [in_i] 66 [in_i] MEDENT ([facility]) 5'6" Body surface area Derived from formula 1.63 m2 1.63 m2 [facility] ([facility]) Body weight 56.246 kg 56.246 kg [facility] ([facility]) Zenda body weight 142 [lb_av] 142 [lb_av] MEDEN T ([facility]) Body mass index (BMI) [Ratio] 20.0 kg/m2 20.0 k g/m2 [facility] ([facility]) Body weight 124.00 [lb_av] 124.00 [lb_av] MEDEN T ([facility]) Body height 66 [in_i] 66 [in_i] MEDENT ([facility]) 5'6" Body surface area Derived from formula 1.63 m2 1.63 m2 [facility] ([facility]) Body weight 56.246 kg 56.246 kg [facility] ([facility]) Zenda body weight 142 [lb_av] 142 [lb_av] MEDEN T ([facility]) Body mass index (BMI) [Ratio] 20.0 kg/m2 20.0 k g/m2 [facility] ([facility]) Body weight 124.00 [lb_av] 124.00 [lb_av] MEDEN T ([facility]) Body height 66 [in_i] 66 [in_i] MEDENT ([facility]) 5'6" Body mass index (BMI) [Ratio] 22.3 kg/m2 22.3 k g/m2 [facility] ([facility]) Oxygen saturation in Arterial blood by Pulse oximetry 98 % 98 % [facility] ([facility]) Body weight 126.00 [lb_av] 126.00 [lb_av] MEDEN T ([facility]) Body height 63.0 [in_i] 63.0 [in_i] MEDENT ([facility]) 5'3" Heart rate 98 /min 98 /min [facility]) Diastolic blood pressure 70 mm[Hg] 70 mm[Hg] [facility] ([facility]) Systolic blood pressure 132 mm[Hg] 132 mm[Hg] [facility] ([facility]) Diastolic blood pressure 100 mm[Hg] 100 mm[Hg] [facility] ([facility]) Systolic blood pressure 158 mm[Hg] 158 mm[Hg] [facility] ([facility]) Body surface area Derived from formula 1.63 m2 1.63 m2 [facility] ([facility]) Body weight 56.246 kg 56.246 kg [facility] ([facility]) Zenda body weight 142 [lb_av] 142 [[facility]_av] [facility] Body mass index (BMI) [Ratio] 20.0 kg/m2 20.0 k g/m2 [facility] ([facility]) Body weight 124.00 [lb_av] 124.00 [lb_av] [facility] Body height 66 [in_i] 66 [in_i] [facility] ([facility]) 5'6" Oxygen saturation in Arterial blood by Pulse oximetry 97 % 97 % [facility] ([facility]) Heart rate 94 /min 94 /min [facility] ([facility]) Diastolic blood pressure 80 mm[Hg] 80 mm[Hg] [facility] ([facility]) Systolic blood pressure 130 mm[Hg] 130 mm[Hg] [facility] ([facility]) Body mass index (BMI) [Ratio] 24.4 kg/m2 24.4 k g/m2 [facility] ([facility]) Oxygen saturation in Arterial blood by Pulse oximetry 96 % 96 % [facility] ([facility]) Body weight 138.00 [lb_av] 138.00 [lb_av] MEDEN T ([facility]) Body height 63.0 [in_i] 63.0 [in_i] [facility] ([facility]) 5'3" Heart rate 96 /min 96 /min [facility] ([facility]) Diastolic blood pressure--standing 54 mm[Hg] 5 4 mm[Hg] [facility] ([facility]) Systolic blood pressure--standing 82 mm[Hg] 82 mm[Hg] [facility] ([facility]) Diastolic blood pressure--sitting 64 mm[Hg] 64 mm[Hg] [facility] ([facility]) Systolic blood pressure--sitting 90 mm[Hg] 90 mm[Hg] [facility] ([facility]) Diastolic blood pressure--supine 68 mm[Hg] 68 mm[Hg] [facility] ([facility]) Systolic blood pressure--supine 100 mm[Hg] 100 mm[Hg] [facility] ([facility]) Diastolic blood pressure 70 mm[Hg] 70 mm[Hg] [facility] ([facility]) Systolic blood pressure 126 mm[Hg] 126 mm[Hg] [facility] ([facility]) Body mass index (BMI) [Ratio] 25.7 kg/m2 25.7 k g/m2 [facility] ([facility]) Body weight 145.00 [lb_av] 145.00 [lb_av] [facility] Body height 63.0 [in_i] 63.0 [in_i] [facility] ([facility]) 5'3" Heart rate 56 /min 56 /min [facility] ([facility]) Diastolic blood pressure 72 mm[Hg] 72 mm[Hg] [facility] ([facility]) Systolic blood pressure 110 mm[Hg] 110 mm[Hg] [facility] ([facility]) Zenda body weight 124 [lb_av] 124 [lb_av] MEDEN T ([facility], ) Body mass index (BMI) [Ratio] 26.6 kg/m2 26.6 k g/m2 [facility] ([facility] ) Body weight 150.00 [lb_av] 150.00 [lb_av] MEDEN T ([facility], ) Body height 63 [in_i] 63 [in_i] [facility] ([facility], ) 5'3" Respiratory rate 14 /min 14 /min [facility] ( [facility], ) Heart rate 70 /min 70 /min [facility] ([facility], ) Diastolic blood pressure 80 mm[Hg] 80 mm[Hg] [facility] ([facility], ) Systolic blood pressure 125 mm[Hg] 125 mm[Hg] M EDENT ([facility]) Body mass index (BMI) [Ratio] 28.2 kg/m2 28.2 k g/m2 [facility] ([facility]) Oxygen saturation in Arterial blood by Pulse oximetry 97 % 97 % [facility] ([facility]) Body weight 159.25 [lb_av] 159.25 [lb_av] MEDEN T ([facility]) Body height 63.0 [in_i] 63.0 [in_i] [facility] ([facility]) 5'3" Heart rate 57 /min 57 /min [facility] ([facility]) Diastolic blood pressure 76 mm[Hg] 76 mm[Hg] [facility] ([facility]) @ 11:54 Systolic blood pressure 126 mm[Hg] 126 mm[Hg] EDENT ([facility]) @ 11:54 Diastolic blood pressure 60 mm[Hg] 60 mm[Hg] [facility] ([facility]) @ 11:23 Systolic blood pressure 138 mm[Hg] 138 mm[Hg] [facility] @ 11:23
[2020-06-20 12:00] LABS: BASO # 0.1 10^3/uL (0.0-0.2); BASO % 0.7 % (0.0-1.0); EOS # 0.3 10^3/uL (0.0-0.5); EOS % 2.5 % (0.0-3.0); LYMPH # 0.9 10^3/uL (1.5-5.0); LYMPH % 8.8 % (24.0-44.0); MEAN CORPUSCULAR HEMOGLOBIN 28.8 pg (27.0-33.0); MEAN CORPUSCULAR HGB CONC 31.1 g/dl (32.0-36.5); MEAN CORPUSCULAR VOLUME 92.6 fl (80.0-96.0); MONO # 0.8 10^3/uL (0.0-0.8); MONO % 7.8 % (0.0-5.0); NEUTROPHILS % 79.6 % (36.0-66.0); PLATELET COUNT, AUTOMATED 213 10^3/uL (150-450); RED BLOOD COUNT 4.86 10^6/uL (4.30-6.10); WHITE BLOOD COUNT 10.1 10^3/uL (4.0-10.0)
[2020-06-20] MEDS ORDERED: MEMA10TA19 GT (12:19)
[2020-06-20] MEDS ORDERED: ECOT81TA5 PO (12:19)
[2020-06-20] MEDS ORDERED: MECL12.590 PO (12:19)
[2020-06-20] MEDS ORDERED: DONE10TA90 GT (12:19)
[2020-06-20] MEDS ORDERED: ATOR40TA75 GT (12:19)
--- NOTE | 2020-06-20 12:20 | REP ---
INDICATION: DYSPNEA/COUGH. COMPARISON: None. TECHNIQUE: SINGLE PORTABLE AP VIEW OF THE CHEST WAS PERFORMED. FINDINGS: Extensive patchy parenchymal opacities and interstitial opacities are seen bilaterally, diffusely involving the right lung and the left mid and lower lungs. I suspect these represent acute infiltrates but underlying fibrotic change cannot be excluded. The heart is not appear to be significantly enlarged. There is calcification of the thoracic aorta. Mediastinal silhouette otherwise appears unremarkable. There are multiple sternal wires present. IMPRESSION: Scattered bilateral infiltrates, diffusely throughout the right lung and in the left mid and lower lung zones, with a possible element of fibrotic change. <Electronically signed by Rell Kelly > 06/20/20 [id number]
--- OUTSIDE RECORDS SUMMARY | 2020-06-20 12:21 | CCD ---
Author Author [facility] Organization [facility] Address Unknown Phone Unavailable Care Team Providers Care Manager Commercial Name Role Phone Matt CAMARILLO MD Unavailable [...] CAMARILLO MD Unavailable Unavailable OSIRIS, GERONIMO AURORA BROADCAST PRODUCER-C Unavailable Unavailable OSIRIS, GERONIMO AURORA BROADCAST PRODUCER-C Unavailable Unavailable OSIRIS, GERONIMO AURORA BROADCAST PRODUCER-C Unavailable Unavailable OSIRIS, GERONIMO AURORA BROADCAST PRODUCER-C Unavailable Unavailable OSIRIS, GERONIMO AURORA BROADCAST PRODUCER-C Unavailable Unavailable OSIRIS, GERONIMO AURORA BROADCAST PRODUCER-C Unavailable Unavailable OSIRIS, GERONIMO AURORA BROADCAST PRODUCER-C Unavailable Unavailable OSIRIS, GERONIMO AURORA BROADCAST PRODUCER-C Unavailable Unavailable OSIRIS, GERONIMO AURORA BROADCAST PRODUCER-C Unavailable Unavailable OSIRIS, GERONIMO AURORA BROADCAST PRODUCER-C Unavailable Unavailable OSIRIS, GERONIMO AURORA BROADCAST PRODUCER-C Unavailable Unavailable OSIRIS, GERONIMO AURORA BROADCAST PRODUCER-C Unavailable Unavailable OSIRIS, GERONIMO AURORA BROADCAST PRODUCER-C Unavailable Unavailable OSIRIS, GERONIMO AURORA BROADCAST PRODUCER-C Unavailable Unavailable OSIRIS, GERONIMO AURORA BROADCAST PRODUCER-C Unavailable Unavailable OSIRIS, GERONIMO AURORA BROADCAST PRODUCER-C Unavailable Unavailable Toño Winchester MD Unavailable Unavailable [...] Winchester MD Unavailable Unavailable White F Phuc NEWMAN Unavailable Unavailable White F Phuc NEWMAN Unavailable Unavailable White F Phuc Unavailable Unavailable White F Phuc NEWMAN Unavailable Unavailable White F Phucjavan NEWMAN Unavailable [...] Unavailable White F Phuc NEWMAN Unavailable Unavailable White, F Phucjavan NEWMAN Unavailable Unavailable White, F Phucjavan NEWMAN Unavailable Unavailable White, F Phuc Unavailable Unavailable White, F Phuc Unavailable Unavailable White F Phucjavan NEWMAN Unavailable Unavailable White F Phucjavan NEWMAN Unavailable Unavailable White F Phuc NEWMAN [...] Unavailable Annabella F Phuc NEWMAN Unavailable Unavailable Toño Winchester MD Unavailable Unavailable Annabella F Phuc NEWMAN Unavailable [...] Mela PAYAN MD Unavailable Unavailable MALACHI, Mela PYAAN MD Unavailable Unavailable MALACHI, Mela PAYAN MD [...] Unavailable Unavailable Mela LY MD Unavailable Unavailable AliCathy MD Unavailable Unavailable [...] MD Unavailable Unavailable AliCathy MD Unavailable Unavailable AliCahty MD Unavailable Unavailable Cathy Sanders MD Unavailable [...] Unavailable Unavailable Cathy Sanders MD Unavailable Unavailable Shamrock, Andres MD Unavailable Unavailable Shamrock, Andres MD Unavailable Unavailable Shamrock, Andres MD Unavailable Unavailable Shamrock, Andres MD Unavailable Unavailable Shamrock, Andres MD Unavailable Unavailable Shamrock, Andres MD Unavailable Unavailable Shamrock, Andres MD Unavailable Unavailable Shamrock, Andres MD Unavailable Unavailable Shamrock, Andres MD Unavailable Unavailable Shamrock, Andres MD Unavailable Unavailable Shamrock, Andres MD Unavailable Unavailable Shamrock, Andres MD Unavailable Unavailable Shamrock, Andres MD Unavailable Unavailable Shamrock, Andres MD Unavailable Unavailable Shamrock, Andres MD Unavailable Unavailable Shamrock, Andres MD Unavailable Unavailable Shamrock, Andres MD Unavailable Unavailable Shamrock, Andres MD Unavailable Unavailable Shamrock, Andres MD Unavailable Unavailable Shamrock, Andres MD Unavailable Unavailable Shamrock, Andres MD Unavailable Unavailable Shamrock, Andres MD Unavailable Unavailable Shamrock, Andres MD Unavailable Unavailable Shamrock, Andres MD Unavailable Unavailable Shamrock, Andres MD Unavailable Unavailable Shamrock, Andres MD Unavailable Unavailable Shamrock, Andres MD Unavailable Unavailable Shamrock, Andres MD Unavailable Unavailable AliCathy MD Unavailable [...] Unavailable AliCathy MD Unavailable Unavailable Ali, Cathy MD Unavailable [...] is protected by Article 27-F of the [facility] Public Health law. If you continue you may have access to information: Regarding HIV / AIDS; Provided by facilities licensed or operated by the [facility] Office of Mental Health; or Provided by the [facility] Office for People With Developmental Disabilities. If such information is present, then the following [facility] mandated warning applies: This information has been [...] law may result in a fine or alf sentence or both. A general authorization for the release of medical or other information is NOT sufficient authorization for further disc losure. Allergies and Adverse Reactions Type Description Substance Reaction Status Data Source(s ) Food allergy SHRIMP SHRIMP ANAPHYLAXIS [place] [facility] Drug allergy IODINE IODINE [place] [facility] Family History Family Member Name Family Member Gender Family Member Status Date o f Status Description Data Source(s) Unknown Unknown Problem [facility] ([facility], ) father, brothers Unknown Male Problem [facility] ([facility]) () Unknown Female Problem [facility] ([facility]) Unknown Unknown Problem [facility] ([facility] Unknown Unknown Problem [facility] ([facility] Unknown Unknown Problem [facility] ([facility]) 1/2 brother Encounters Encounter Providers Location Date Indications Data Source(s ) Outpatient Attender: ORA ALVAREZBF 06/19/2020 12:00:00 AM EST [facility] Outpatient Attender: Andres Green/Crista/Tobin/Omerd l 06/03/2020 01:40:00 PM EST [facility] Outpatient Attender: Andres Grene/Crista/Tobin/Sharifa l 04/26/2020 12:00:00 PM EST [facility] ([facility] ) Office Visit Attender: Phuc Meade 03/26 10:30:00 AM EST [facility] ([facility] ) Outpatient Attender: AURORA Green/Crista/Tobin/R eindl 03/13/2020 09:00:00 AM EST [facility] Outpatient Attender: Cathy Sanders MD Main office - [place] 02/15/2020 10:45:00 AM EDT [facility] ([facility], ) Outpatient Attender: ORA THOMAS.[facility] 01/19/2020 12:00:00 AM EDT [facility] Office Visit Attender: Phuc Meade 12/28 11:30:00 AM EDT [facility] ([facility] ) Outpatient Attender: Cathy Sanders MD Main office - [place] 11/14/2019 12:45:00 PM EDT [facility] ([facility] ) Office Visit Attender: Cathy Sanders MD Main office - [place] 09/28/2019 01:30:00 PM EDT [facility] ([facility] Outpatient Attender: Cathy Sanders MDConsultant: OSMAN CAMARILLO MD 08/03/2019 11:20:00 AM EDT - 08/03/2019 12:20:00 PM EDT [facility] Outpatient Attender: ORA LY MD BF-BF 07/18/2019 12:00:00 AM EDT [facility] Outpatient Attender: Phuc Meade 04/26 10:30:00 AM EST [facility] ([facility] ) Immunizations Vaccine Date Status Description Data Source(s) This CVX code allows reporting of a vacc ination when formulation is unknown (for example, when recording a Influenza vaccination when noted on a vaccination card) 02/19/2020 08:19:00 AM EDT completed MEDEN T ([facility]) Medications Medication Brand Name Start Date Product Form Dose Route Admi nistrative Instructions Pharmacy Instructions Status Indications Reaction Description Data Source(s) 100 mcg/0.5 mL 05/25/2020 12:00:00 AM EST suspension 0 INJECT BY [facility] (FIRST DOSE) INJECT BY [facility] (FIRST DOSE) SOLD: 05/25/2020 [facility] Omeprazole 40 MG Delayed Release Oral Capsule Omeprazole 04/26/2020 12:00:00 AM EST ORAL active [facility] ([facility], ) Ipratropium [place] Ipratropium [place] 04/26/2020 12:00:00 AM EST active [facility] ([facility], ) 200 ACTUAT Ipratropium [place] 0.017 MG/ACTUAT Metered Dose Inhaler [Atrovent] Atrovent HFA 04/26/2020 12:00:00 AM EST completed [facility] ([facility], ) Flonase Allergy Relief Flonase Allergy Relief 04/01/2020 12:00:[address] active [facility] ([facility]) Memantine hydrochloride 10 MG Oral Tablet Memantine HCL 12/29/2019 12:00:00 AM EDT ORAL active [facility] ([facility]) Memantine hydrochloride 10 MG Oral Tablet Memantine HCL 11/14/2019 12:00:00 AM EDT ORAL active [facility] ([facility], ) Famotidine 20 MG Oral Tablet [...] talbot Policy [place]bot Plan Information FOR LIFE [id number] SP [id number] MEDICARE [id number] SP [id number] MEDICARE [id number] Yasmin [id number] Y76 [id number] Yasmin [id number] FOR LIFE -O/P [id number] 18 [id number] MEDICARE PART A -O/P [id number] 18 [id number] [facility] Trad/MX Medigap Part B [id number] Family Depe ndent [id number] WPS For Life Medigap Part B [id number] Self [id number] Medicare Natl Govt Servic Medicare Primary [id number] Self [id number] [place] Medigap Part B [id number] Family Dep endent [id number] [facility] [id number] Yasmin [id number] BS [place] Trad/[place] Medigap Part B [id number] Family Depe ndent [id number] WPS For Life Medigap Part B [id number] Self [id number] Medicare Natl Govt Servic Medicare Primary [id number] Self [id number] WPS For Life Medigap Part B [id number] Self [id number] [place] Medicare Primary [id number] Self [id number] [facility] Health Maintenance Organization (HMO) [id number] Family Dependent [id number] BS [place] Trad/[place] Medigap Part B [id number] Family Depe ndent [id number] WPS For Life Medigap Part B [id number] Self [id number] Medicare Natl Govt Servic Medicare Primary [id number] Self [id number] MEDICARE [id number] SP [id number] FOR LIFE [id number] SP [id number] MEDICARE [id number] SP [id number] A WPS For Life Medigap Part B [id number] Self [id number] [place] Medicare Primary [id number] Self [id number] [employer] Health Maintenance Organization (HMO) [id number] Family Dependent [id number] BS [place] Trad/MX Commercial [id number] Family Dependen t [id number] WPS For Life Medigap Part B [id number] Self [id number] Medicare Natl Govt Servic Medicare Primary [id number] Self [id number] MEDICARE [id number] Yasmin [id number] A BS [place] Trad/MX Commercial [id number] Family Dependen t [id number] WPS For Life Medigap Part B [id number] Self [id number] Medicare Natl Govt Servic Medicare Primary [id number] Self [id number] For Life WPS Medigap Part B [id number] Self [id number] Medicare Natl Gov't Servi Medicare Primary [id number] Self [id number] MEDICARE [id number] SP [id number] A BS [place] Trad/MX Commercial [id number] Family Dependen t [id number] WPS For Life Medigap Part B [id number] Self [id number] Medicare Natl Govt Servic Medicare Primary [id number] Self [id number] BS [place] Trad/[place] Medigap Part B [id number] Family Depend ent 806 BS [place] Trad/MX Commercial 802 Family Dependent 802 WPS For Life Medigap Part B Self Medicare Natl Govt Servic Medicare Primary Self For Life WPS Medigap Part B Self Medicare Natl Gov't Servi Medicare Primary Self For Life Medigap Part B Self [place] Primary Self BC[place] 306/806 [id number] Yasmin [id number] FOR LIFE -I/P [id number] 18 [id number] MEDICARE PART A -I/P [id number] 18 [id number] A [id number] Problems, Conditions, and Diagnoses Code Display Name Description Problem Type Effective Dates Data Source(s) 113866098 History of cerebrovascular accident with out residual deficits History of cerebrovascular accident without residual deficits Problem 07/04/2019 12:00:00 AM EST MED[facility] ([facility], ) [id number] 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 Pr oblem 07/04/2019 12:00:00 AM EST [facility] ([facility], ) [id number] 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 Problem 07/04/2019 12:00:00 AM EST [facility] ([facility], ) [id number] Mild cognitive disorder Mild cognitive disorder Proble m 07/04/2019 12:00:00 AM EST [facility] ([facility], ) 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 Diagnosis 08/03/2019 11:20:00 AM EDT [facility] E039 Hypothyroidism, unspecified Hypothyroidism, unspecifie d Diagnosis 08/03/2019 11:20:00 AM EDT [facility] 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 [place] Diagnosis 07/18/2019 04:27:03 PM EDT [facility] Surgeries/Procedures Procedure Description Date Indications Data Source(s) Magnetic Resonance Angiogtaphy Head W/O Contrast Material(S) 07/08/2019 12:00:00 AM EST [facility] ([facility] Magnetic Resonance Angiogtaphy Head W/O Contrast Material(S) 07/08/2019 12:00:00 AM EST [facility] ([facility] Magnetic Resonance Angiography Neck W/O Contrast Materials 07/08/2019 12:00:00 AM EST [facility] ([facility] Magnetic Resonance Angiography Neck W/O Contrast Materials 07/08/2019 12:00:00 AM EST [facility] ([facility] MRI BRAIN BRAIN STEM W/O CONTRAST MATERIAL 07/08/2019 12:00:00 AM EST [facility] ([facility], ) MRI BRAIN BRAIN STEM W/O CONTRAST MATERIAL 07/08/2019 12:00:00 AM EST [facility] ([facility]) Results ID Date Data Source [id number] 06/19/2020 02:20:40 PM EST [facility] INFORMATIONPatient MRN Name Date of Age Gend*PT [id number] Leon Cooper 1930 89 years M ---PT Location Admission Date/Time Visit ID Attending Provider --- --- --- --- EPI ID CSN Admitting Provider [id number] ---Cardiology History and PhysicalName: Leon Cooper Gender: maleDate of : 1930 Age: 89 yearsPrimary Care Provider / Referring Physician[facility] Telemedicine VisitPatient was identified by name and date of .Verbal consent was obtained from the patient for this telemedicine visit.Patient is aware of the risks, limitations, and benefits of a telemedicinevisit.This telemedicine assessment was conducted remotely with the assistance ofPearescopeication technology: Telephone Only Codes 40628: 21- 30 minutes of medicaldiscussion: Telephone OnlyCurrent [...] file Gets together: Not on file Attends uatsdin service: Not on file Active member of [...] Respiratory Therapy Supplies (CARETOUCH 2 CPAP HOSE EDUCATIONAL GUIDANCE COUNSELOR) [facility], by Does notapply route, Disp: , Rfl: [...] and then, all question were answered.Signature: Ora Ly MDDate: June 19, 2020Time: 2:07 PMThis document or parts of this document, were dictated using Webspyware. A reasonable attempt at proofreading has been made to minimize errors.Please call with any questions or corrections. Name Value Range Interpretation Code Description Data Rosaline rce(s) Supporting Document(s) ID Date Data Source [id number] 03/26/2020 12:04:00 PM EST [facility] ([facility]) Name Value Range Interpretation Code Description Data Rosaline rce(s) Supporting Document(s) Thyrotropin [Units/volume] in Serum or Plasma by Detec tion limit <= 0.05 mIU/L 1.28 uIU/mL 0.36-3.74 [facility] ([facility] ) ID Date Data Source [id number] 03/26/2020 12:04:00 PM EST [facility] ([facility]) Name Value Range Interpretation Code Description Data Rosaline rce(s) Supporting Document(s) Glucose [Mass/volume] in Serum or Plasma 96 mg/dL 74-99 [facility] ([facility]) 100-125 mg/dL PRE-DIABETES/FASTING >126 mg/dL DIABETES/FASTING Creatinine 1.2 mg/dL 0.6-1.3 [facility] Urea nitrogen [Mass/volume] in Serum or Plasma 18 mg/dL 7-18 [facility] ([facility]) Sodium [Moles/volume] in Serum or Plasma 142 meq/L 136-145 [facility] ([facility]) Chloride [Moles/volume] in Serum or Plasma 103 meq/L 98-107 [facility] ([facility]) Carbon dioxide, total [Moles/volume] in Serum or Plasma 33 meq/L 21 -32 [facility] ([facility]) Potassium [Moles/volume] in Serum or Plasma 4.5 meq/L 3.5-5.1 [facility] ([facility]) Calcium [Mass/volume] in Serum or Plasma 9.5 mg/dL 8.5-10.1 [facility] ([facility]) Alkaline phosphatase isoenzyme [Units/volume] in Serum or Pl asma 125 mg/dL 46-116 [facility] ([facility]) Alanine aminotransferase [Enzymatic activity/volume] in Seru m or Plasma 41 U/L 12-78 [facility] ([facility]) Aspartate aminotransferase [Enzymatic activity/volume] in Serum or Plasma 29 U/L 15-37 [facility] ([facility] ) Total Bilirubin 0.6 mg/dL 0.2-1.0 [facility] ([facility]) Albumin [Mass/volume] in Serum or Plasma 3.3 g/dL 3.4-5.0 [facility] A/G Ratio 0.70 CALC 1.00-1.90 [facility] Proteinase 3 Ab [Units/volume] in Serum 8.0 g/dL 6.4-8.2 [facility] ([facility]) Glomerular filtration rate/1.73 sq M pre dicted among non-blacks [Volume Rate/Area] in Serum or Plasma by Creatinine-based formula (MDRD) 57 mL/min [facility] Glomerular filtration rate/1.73 sq M pre dicted among blacks [Volume Rate/Area] in Serum or Plasma by Creatinine-based formula (MDRD) Laboratory test result [facility] <content>CHRONIC KIDNEY DISEASE STAGING PER NKF</content>
<content></content>
<content>STAGE I & II GFR >= 60 NORMAL TO MILDLY DECREASED</content>
<content>STAGE III GFR 30-59 MODERATELY DECREASED</content>
<content>STAGE IV GFR 15-29 SEVERELY DECREASED</content>
<content>STAGE V GFR <15 VERY LITTLE GFR LEFT</content>
<content>ESRD GFR <15 ON PATHOLOGICAL TECHNICIAN</content>
<content></content> ID Date Data Source [id number] 03/26/2020 12:04:00 PM EST [facility] ([facility]) Name Value Range Interpretation Code Description Data Rosaline rce(s) Supporting Document(s) Leukocytes [#/volume] in Blood by Automated count 7.0 x10*3/UL 4.1-10 .9 [facility] ([facility]) Erythrocytes [#/volume] in Blood by Automated count 4.76 x10*6/UL 4.2 0-6.30 [facility] ([facility]) MCV 88.6 fL 80.0-97.0 [facility]) Hematocrit [Volume Fraction] of Blood by Automated count 42.2 % 3 7.0-51.0 [facility] ([facility]) Hemoglobin [Mass/volume] in Blood 13.9 g/dL 12.0-18.0 [facility] ([facility]) MCHC 33.1 g/dL 31.0-38.0 [facility]) MCH 29.3 pg 26.0-32.0 [facility]) Platelets [#/volume] in Blood by Automated count 209 x10*3/UL 140-440 [facility] ([facility]) Erythrocyte distribution width [Ratio] by Automated count 13.7 % 11.6-13.7 [facility] ([facility]) MPV 8.5 FL 7.8-11.0 [facility] Mid % 4.7 % 1.7-9.3 [facility] Lymph % 17.3 % 10.0-58.5 [facility] Lymph # 1.2 x10*3/UL 0.6-4.1 [facility] ([facility]) Neut % 78.0 % 37.0-92.0 [facility] Mid # 0.4 x10*3/UL 0.1-0.6 [facility] ([facility]) Neut # 5.4 x10*3/UL 2.0-7.8 [facility] ([facility]) ID Date Data Source [id number] 01/19/2020 02:28:06 PM EDT [facility] INFORMATIONPatient MRN Name Date of Age Gend*PT [id number] Leon Cooper 1930 89 years M ---PT Location Admission Date/Time Visit ID Attending Provider --- --- --- --- EPI ID CSN Admitting Provider [id number] ---Cardiology History and PhysicalName: Leon Cooper Gender: maleDate of : 1930 Age: 89 yearsPrimary Care Provider / Referring Physician[facility] Telemedicine VisitPatient was identified by name and date of .Verbal consent was obtained from the patient for this telemedicine visit.Patient is aware of the risks, limitations, and benefits of a telemedicinevisit.This telemedicine assessment was conducted remotely with the assistance ofPearescopeication technology: Telephone Only Codes 28040: 21- 30 minutes of medicaldiscussion: Telephone OnlyCurrent [...] dementiaThis is a follow up visit from [facility] Denies dizziness or lightheadedness. Denies any [...] file Gets together: Not on file Attends uatsdin service: Not on file Active member of [...] parts of this document, were dictated using Webspyware. A reasonable attempt at proofreading has been made to minimize errors.Please call with any questions or corrections. Name Value Range Interpretation Code Description Data [facility] Supporting Document(s) ID Date Data Source [id number] 12/29/2019 12:24:00 PM EDT [facility] ([facility]) Name Value Range Interpretation Code Description Data [facility] rce(s) Supporting Document(s) Glucose [Mass/volume] in Serum or Plasma 112 mg/dL 74-99 [facility] ([facility]) 100-125 mg/dL PRE-DIABETES/FASTING >126 mg/dL DIABETES/FASTING Creatinine 1.7 mg/dL 0.6-1.3 [facility] Urea nitrogen [Mass/volume] in Serum or Plasma 26 mg/dL 7-18 [facility] ([facility]) Sodium [Moles/volume] in Serum or Plasma 142 meq/L 136-145 [facility] ([facility]) Chloride [Moles/volume] in Serum or Plasma 105 meq/L 98-107 [facility] ([facility]) Potassium [Moles/volume] in Serum or Plasma 5.1 meq/L 3.5-5.1 [facility] ([facility]) Carbon dioxide, total [Moles/volume] in Serum or Plasma 28 meq/L 21 -32 [facility] Calcium [Mass/volume] in Serum or Plasma 9.3 mg/dL 8.5-10.1 [facility] ([facility]) Alkaline phosphatase isoenzyme [Units/volume] in Serum or Pl asma 99 mg/dL 46-116 [facility] ([facility]) Aspartate aminotransferase [Enzymatic activity/volume] in Serum or Plasma 22 U/L 15-37 [facility] ([facility] ) Total Bilirubin 0.8 mg/dL 0.2-1.0 [facility] Proteinase 3 Ab [Units/volume] in Serum 8.0 g/dL 6.4-8.2 [facility] ([facility]) Albumin [Mass/volume] in Serum or Plasma 3.4 g/dL 3.4-5.0 [facility] ([facility]) Alanine aminotransferase [Enzymatic activity/volume] in Seru m or Plasma 27 U/L 12-78 [facility] Glomerular filtration rate/1.73 sq M pre dicted among non-blacks [Volume Rate/Area] in Serum or Plasma by Creatinine-based formula (MDRD) 38 mL/min [facility] Glomerular filtration rate/1.73 sq M pre dicted among blacks [Volume Rate/Area] in Serum or Plasma by Creatinine-based formula (MDRD) 46 mL/min [facility] ([facility]) <content>CHRONIC KIDNEY DISEASE STAGING PER NKF</content>
<content></content>
<content>STAGE I & II GFR >= 60 NORMAL TO MILDLY DECREASED</content>
<content>STAGE III GFR 30-59 MODERATELY DECREASED</content>
<content>STAGE IV GFR 15-29 SEVERELY DECREASED</content>
<content>STAGE V GFR <15 VERY LITTLE GFR LEFT</content>
<content>ESRD GFR <15 ON PATHOLOGICAL TECHNICIAN</content>
<content></content> A/G Ratio 0.74 CALC 1.00-1.90 [facility] ([facility]) ID Date Data Source [id number] 12/29/2019 12:24:00 PM EDT [facility] ([facility]) Name Value Range Interpretation Code Description Data Rosaline rce(s) Supporting Document(s) Leukocytes [#/volume] in Blood by Automated count 7.3 x10*3/UL 4.1-10 .9 [facility] ([facility]) Erythrocytes [#/volume] in Blood by Automated count 4.18 x10*6/UL 4.2 0-6.30 [facility] Hemoglobin [Mass/volume] in Blood 12.3 g/dL 12.0-18.0 [facility] Hematocrit [Volume Fraction] of Blood by Automated count 36.5 % 3 7.0-51.0 [facility] MCH 29.5 pg 26.0-32.0 [facility] ([facility]) MCV 87.3 fL 80.0-97.0 [facility] ([facility]) MCHC 33.8 g/dL 31.0-38.0 [facility] ([facility]) Erythrocyte distribution width [Ratio] by Automated count 13.2 % 11.6-13.7 [facility] Platelets [#/volume] in Blood by Automated count 202 x10*3/UL 140-440 [facility] ([facility]) MPV 8.3 FL 7.8-11.0 [facility] ([facility]) Lymph % 20.7 % 10.0-58.5 [facility] ([facility]) Lymph # 1.5 x10*3/UL 0.6-4.1 [facility] ([facility]) Mid % 6.9 % 1.7-9.3 [facility] Neut % 72.4 % 37.0-92.0 [facility] Neut # 5.3 x10*3/UL 2.0-7.8 [facility] ([facility]) Mid # 0.5 x10*3/UL 0.1-0.6 [facility] ([facility]) ID Date Data Source [id number] 10/23/2019 10:39:00 AM EDT [facility] ([facility]) Name Value Range Interpretation Code Description Data Rosaline rce(s) Supporting Document(s) Thyrotropin [Units/volume] in Serum or Plasma by Detec tion limit <= 0.05 mIU/L 1.40 uIU/mL 0.36-3.74 [facility] ([facility] ) ID Date Data Source [id number] 10/23/2019 10:39:00 AM EDT [facility] ([facility]) Name Value Range Interpretation Code Description Data Rosaline rce(s) Supporting Document(s) Triglyceride [Mass/volume] in Serum or Plasma 65 mg/dL 30-150 [facility] ([facility]) Cholesterol [Mass/volume] in Serum or Plasma 131 mg/dL 131-200 [facility] ([facility]) Cholesterol in LDL [Mass/volume] in Serum or Plasma by calcu lation 59 CALC 50-159 [facility] ([facility]) Cholesterol in HDL [Mass/volume] in Serum or Plasma 59 mg/dL 35-60 [facility] ([facility]) ID Date Data Source [id number] 10/23/2019 10:39:00 AM EDT [facility] ([facility]) Name Value Range Interpretation Code Description Data Rosaline rce(s) Supporting Document(s) Glucose [Mass/volume] in Serum or Plasma 94 mg/dL 74-99 [facility] ([facility]) 100-125 mg/dL PRE-DIABETES/FASTING >126 mg/dL DIABETES/FASTING Urea nitrogen [Mass/volume] in Serum or Plasma 28 mg/dL 7-18 [facility] ([facility]) Creatinine 1.5 mg/dL 0.6-1.3 [facility] Sodium [Moles/volume] in Serum or Plasma 143 meq/L 136-145 [facility] ([facility]) Potassium [Moles/volume] in Serum or Plasma 4.8 meq/L 3.5-5.1 [facility] ([facility]) Chloride [Moles/volume] in Serum or Plasma 106 meq/L 98-107 [facility] ([facility]) Calcium [Mass/volume] in Serum or Plasma 8.9 mg/dL 8.5-10.1 [facility] ([facility]) Alkaline phosphatase isoenzyme [Units/volume] in Serum or Pl asma 90 mg/dL 46-116 [facility] ([facility]) Carbon dioxide, total [Moles/volume] in Serum or Plasma 26 meq/L 21 -32 [facility] ([facility]) Total Bilirubin 0.8 mg/dL 0.2-1.0 [facility] ([facility]) Alanine aminotransferase [Enzymatic activity/volume] in Seru m or Plasma 36 U/L 12-78 [facility] ([facility]) Aspartate aminotransferase [Enzymatic activity/volume] in Serum or Plasma 28 U/L 15-37 [facility] ([facility] ) Albumin [Mass/volume] in Serum or Plasma 3.6 g/dL 3.4-5.0 [facility] ([facility]) A/G Ratio 0.82 CALC 1.00-1.90 [facility] Glomerular filtration rate/1.73 sq M pre dicted among non-blacks [Volume Rate/Area] in Serum or Plasma by Creatinine-based formula (MDRD) 44 mL/min [facility] ([facility]) Proteinase 3 Ab [Units/volume] in Serum 8.0 g/dL 6.4-8.2 [facility] ([facility]) Glomerular filtration rate/1.73 sq M pre dicted among blacks [Volume Rate/Area] in Serum or Plasma by Creatinine-based formula (MDRD) 54 mL/min [facility] ([facility]) <content>CHRONIC KIDNEY DISEASE STAGING PER NKF</content>
<content></content>
<content>STAGE I & II GFR >= 60 NORMAL TO MILDLY DECREASED</content>
<content>STAGE III GFR 30-59 MODERATELY DECREASED</content>
<content>STAGE IV GFR 15-29 SEVERELY DECREASED</content>
<content>STAGE V GFR <15 VERY LITTLE GFR LEFT</content>
<content>ESRD GFR <15 ON PATHOLOGICAL TECHNICIAN</content>
<content></content> ID Date Data Source [id number] 10/23/2019 10:39:00 AM EDT [facility] ([facility]) Name Value Range Interpretation Code Description Data Rosaline rce(s) Supporting Document(s) Leukocytes [#/volume] in Blood by Automated count 6.4 x10*3/UL 4.1-10 .9 [facility] ([facility]) Erythrocytes [#/volume] in Blood by Automated count 4.51 x10*6/UL 4.2 0-6.30 [facility] ([facility]) Hematocrit [Volume Fraction] of Blood by Automated count 39.5 % 3 7.0-51.0 [facility] ([facility]) MCV 87.7 fL 80.0-97.0 [facility]) Hemoglobin [Mass/volume] in Blood 13.1 g/dL 12.0-18.0 [facility] ([facility]) MCHC 33.0 g/dL 31.0-38.0 [facility] ([facility]) MCH 29.0 pg 26.0-32.0 [facility] ([facility]) Erythrocyte distribution width [Ratio] by Automated count 13.6 % 11.6-13.7 [facility] ([facility]) Platelets [#/volume] in Blood by Automated count 183 x10*3/UL 140-440 [facility] ([facility]) MPV 8.2 FL 7.8-11.0 [facility] ([facility]) Lymph % 24.9 % 10.0-58.5 [facility] ([facility]) Mid % 7.7 % 1.7-9.3 [facility]) Mid # 0.6 x10*3/UL 0.1-0.6 [facility] ([facility]) Neut % 67.4 % 37.0-92.0 [facility] Lymph # 1.5 x10*3/UL 0.6-4.1 [facility] ([facility]) Neut # 4.3 x10*3/UL 2.0-7.8 [facility] ([facility]) ID Date Data Source [id number] 08/03/2019 11:40:00 AM EDT [facility] ([facility], ) Name Value Range Interpretation Code Description Data Rosaline rce(s) Supporting Document(s) Laboratory test finding (navigational concept) Laboratory test result [facility] ([facility]) Test(s) 760642-Welxbot E(Alpha Tocophero l); 449945- Vitamin E(Gamma Tocopherol); 052925-Asrwhue B6 was developed and its performance characteristics determined by [employer]. It has not been cleared or approved by the Food and Drug Administration. Vitamin E(AlphaTocopherol) 10.5 mg/L 9.0-29.0 [facility] ) Vitamin E(GammaTocopherol) 0.9 mg/L 0.5-4.9 [facility] ([facility]) Reference intervals for alpha and gamma- tocopherol determined from National Health and Nutrition Examination Survey, 1421-2706. Individuals with alpha-tocopherol levels less than 5.0 mg/L are considered vitamin E deficient. ID Date Data Source [id number] 08/03/2019 11:40:00 AM EDT [facility] ) Name Value Range Interpretation Code Description Data Rosaline rce(s) Supporting Document(s) Pyridoxine [Mass/volume] in Serum or Plasma 25.9 ug/L 5.3-46.7 [facility] ([facility], ) ID Date Data Source [id number] 08/03/2019 11:40:00 AM EDT [facility] ) Name Value Range Interpretation Code Description Data Rosaline rce(s) Supporting Document(s) Laboratory test finding (navigational concept) Laboratory test result [facility] ([facility]) Test(s) 221982-Rfu. B1, Whole Blood was developed and its performance characteristics determined by [facility] [employer]. It has not been cleared or approved by the Food and Drug Administration. Laboratory test finding (navigational concept) 126.3 nmol/L 66.5-200. [address] [facility] ([facility], ) ID Date Data Source [id number] 08/03/2019 11:40:00 AM EDT [facility] ([facility] ) Name Value Range Interpretation Code Description Data Rosaline rce(s) Supporting Document(s) Cobalamin (Vitamin B12) [Mass/volume] in Serum or Plasma 694 pg/mL 2 32-1245 [facility] ([facility] ) Thyrotropin [Units/volume] in Serum or Plasma 1.24 uIU/mL 0.47-5.01 [facility] ([facility]) Folate [Mass/volume] in Serum or Plasma Laboratory test result 5.6-[address] [facility] ([facility]) ID Date Data Source [id number] 08/07/2019 08:34:00 PM EDT [facility] Name Value Range Interpretation Code Description Data Rosaline rce(s) Supporting Document(s) [facility]) 148796-Fdzeqmp E(Alpha Tocophero l); 603970-Aiptzrs E(Gamma Tocopherol); 366686-Sxvenpy B6was developed and its performance characteristics determinedby [facility]. It has not been cleared or approved by the Foodand Drug Administration. Alpha tocopherol [Mass/volume] in Serum or Plasma 10.5 mg/L 9.0-29.0 [facility] Gamma tocopherol [Mass/volume] in Serum or Plasma 0.9 mg/L 0.5-4.9 [facility] Reference intervals for alpha and gamma- tocopherol determined fromJesup Health and Nutrition Examination Survey, 0429-6836.Individuals with alpha- tocopherol levels less than 5.0 mg/L areconsidered vitamin E deficient. ID Date Data Source [id number] 08/07/2019 12:26:00 AM EDT [facility] Name Value Range Interpretation Code Description Data Rosaline rce(s) Supporting Document(s) Pyridoxine [Mass/volume] in Serum or Plasma 25.9 ug/L 5.3-46.7 [facility] ID Date Data Source [id number] 08/05/2019 07:53:00 AM EDT [facility] Name Value Range Interpretation Code Description Data Rosaline rce(s) Supporting Document(s) VITAMIN B-1 WHOLE BLOOD [facility] Test(s) 549453-Wcz. B1, Whole Bloodwas codey julianoped and its performance characteristics determinedby [facility]. It has not been cleared or approved by the Foodand Drug Administration. Thiamine [Moles/volume] in Blood 126.3 nmol/L 66.5-200.0 [facility] ID Date Data Source [id number] 08/03/2019 01:48:00 PM EDT [facility] Name Value Range Interpretation Code Description Data Rosaline rce(s) Supporting Document(s) Folate [Mass/volume] in Serum or Plasma >20.0 NG/ML 5.6 - 45.8 [facility] ID Date Data Source [id number] 08/03/2019 01:11:00 PM EDT [facility] Value Range Interpretation Code Description Data Rosaline rce(s) Supporting Document(s) Thyrotropin [Units/volume] in Serum or Plasma by Detec tion limit <= 0.05 mIU/L 1.24 uIU/mL 0.47 - 5.01 [facility] ID Date Data Source [id number] 08/03/2019 01:11:00 PM EDT [facility] Value Range Interpretation Code Description Data Rosaline rce(s) Supporting Document(s) Cobalamin (Vitamin B12) [Mass/volume] in Serum or Plasma 694 PG/ML 232 - 1245 [facility] ID Date Data Source [id number] 07/18/2019 05:09:18 PM EDT [facility] INFORMATIONPatient MRN Name Date of Age Gend*PT [id number] Leon Cooper 1930 88 years M ---PT Location Admission Date/Time Visit ID Attending Provider --- --- --- --- EPI ID CSN Admitting Provider [id number] ---[facility] [id number], [address] (First Floor)[place], [place] [address]Bo.: Fax: Vardiology History and PhysicalName: Leon Cooper Gender: maleDate of : 1930 Age: 88 yearsPrimary Care Provider: Dipak LOUIS Physician:Current HistoryChief Complaint: Here for follow-upHPI:This patient [...] file Gets together: Not on file Attends uatsdin service: Not on file Active member of [...] toaffect him and 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 A reasonable attempt at proofreading has been made to minimize errors.Please call with any questions or corrections. Name Value Range Interpretation Code Description Data Rosaline rce(s) Supporting Document(s) ID Date Data Source [id number] 05/29/2019 01:25:00 PM EST [facility] ([facility]) Name Value Range Interpretation Code Description Data Rosaline rce(s) Supporting Document(s) Glucose [Mass/volume] in Serum or Plasma 103 mg/dL 74-99 [facility] ([facility]) 100-125 mg/dL PRE-DIABETES/FASTING >126 mg/dL DIABETES/FASTING Urea nitrogen [Mass/volume] in Serum or Plasma 25 mg/dL 7-18 [facility] ([facility]) Potassium [Moles/volume] in Serum or Plasma 4.5 meq/L 3.5-5.1 [facility] ([facility]) Sodium [Moles/volume] in Serum or Plasma 139 meq/L 136-145 [facility] ([facility]) Creatinine 1.6 mg/dL 0.6-1.3 [facility] Chloride [Moles/volume] in Serum or Plasma 102 meq/L 98-107 [facility] ([facility]) Carbon dioxide, total [Moles/volume] in Serum or Plasma 28 meq/L 21 -32 [facility] ([facility]) Calcium [Mass/volume] in Serum or Plasma 9.2 mg/dL 8.5-10.1 [facility] ([facility]) Glomerular filtration rate/1.73 sq M pre dicted among non-blacks [Volume Rate/Area] in Serum or Plasma by Creatinine-based formula (MDRD) 41 mL/min [facility] ([facility]) Glomerular filtration rate/1.73 sq M pre dicted among blacks [Volume Rate/Area] in Serum or Plasma by Creatinine-based formula (MDRD) 50 mL/min [facility] ([facility]) <content>CHRONIC KIDNEY DISEASE STAGING PER NKF</content>
<content></content>
<content>STAGE I & II GFR >= 60 NORMAL TO MILDLY DECREASED</content>
<content>STAGE III GFR 30-59 MODERATELY DECREASED</content>
<content>STAGE IV GFR 15-29 SEVERELY DECREASED</content>
<content>STAGE V GFR <15 VERY LITTLE GFR LEFT</content>
<content>ESRD GFR <15 ON PATHOLOGICAL TECHNICIAN</content>
<content></content> ID Date Data Source [id number] 04/24/2019 11:16:00 AM EST [facility] ([facility]) Name Value Range Interpretation Code Description Data Rosaline rce(s) Supporting Document(s) Thyrotropin [Units/volume] in Serum or Plasma by Detec tion limit <= 0.05 mIU/L 1.46 uIU/mL 0.36-3.74 [facility] ([facility] ) ID Date Data Source [id number] 04/24/2019 11:16:00 AM EST [facility] Name Value Range Interpretation Code Description Data Rosaline rce(s) Supporting Document(s) Cholesterol [Mass/volume] in Serum or Plasma 129 mg/dL 131-200 [facility] ([facility]) Triglyceride [Mass/volume] in Serum or Plasma 52 mg/dL 30-150 [facility] ([facility]) Cholesterol in HDL [Mass/volume] in Serum or Plasma 55 mg/dL 35-60 [facility] ([facility]) Cholesterol in LDL [Mass/volume] in Serum or Plasma by calcu lation 64 CALC 50-159 [facility] ([facility]) ID Date Data Source [id number] 04/24/2019 11:16:00 AM EST [facility] ([facility]) Name Value Range Interpretation Code Description Data Rosaline rce(s) Supporting Document(s) Creatinine 1.6 mg/dL 0.6-1.3 [facility] ([facility]) Glucose [Mass/volume] in Serum or Plasma 88 mg/dL 74-99 [facility] ([facility]) 100-125 mg/dL PRE-DIABETES/FASTING >126 mg/dL DIABETES/FASTING Urea nitrogen [Mass/volume] in Serum or Plasma 26 mg/dL 7-18 [facility] ([facility]) Chloride [Moles/volume] in Serum or Plasma 103 meq/L 98-107 [facility] ([facility]) Sodium [Moles/volume] in Serum or Plasma 141 meq/L 136-145 [facility] ([facility]) Potassium [Moles/volume] in Serum or Plasma 4.9 meq/L 3.5-5.1 [facility] ([facility]) Carbon dioxide, total [Moles/volume] in Serum or Plasma 27 meq/L 21 -32 [facility] ([facility]) Alkaline phosphatase isoenzyme [Units/volume] in Serum or Pl asma 97 mg/dL 46-116 [facility] ([facility]) Total Bilirubin 0.6 mg/dL 0.2-1.0 [facility] ([facility]) Calcium [Mass/volume] in Serum or Plasma 9.3 mg/dL 8.5-10.1 [facility] ([facility]) Aspartate aminotransferase [Enzymatic activity/volume] in Serum or Plasma 26 U/L 15-37 [facility] ([facility] ) Alanine aminotransferase [Enzymatic activity/volume] in Seru m or Plasma 40 U/L 12-78 [facility] ([facility]) Albumin [Mass/volume] in Serum or Plasma 3.8 g/dL 3.4-5.0 [facility] ([facility]) Glomerular filtration rate/1.73 sq M pre dicted among non-blacks [Volume Rate/Area] in Serum or Plasma by Creatinine-based formula (MDRD) 41 mL/min [facility] ([facility]) Proteinase 3 Ab [Units/volume] in Serum 8.3 g/dL 6.4-8.2 [facility] ([facility]) NOTE: RESULT VERIFIED. A/G Ratio 0.84 CALC 1.00-1.90 [facility] ([facility]) Glomerular filtration rate/1.73 sq M pre dicted among blacks [Volume Rate/Area] in Serum or Plasma by Creatinine-based formula (MDRD) 50 mL/min [facility] <content>CHRONIC KIDNEY DISEASE STAGING PER NKF</content>
<content></content>
<content>STAGE I & II GFR >= 60 NORMAL TO MILDLY DECREASED</content>
<content>STAGE III GFR 30-59 MODERATELY DECREASED</content>
<content>STAGE IV GFR 15-29 SEVERELY DECREASED</content>
<content>STAGE V GFR <15 VERY LITTLE GFR LEFT</content>
<content>ESRD GFR <15 ON PATHOLOGICAL TECHNICIAN</content>
<content></content> ID Date Data Source [id number] 04/24/2019 11:16:00 AM EST [facility] Name Value Range Interpretation Code Description Data Rosaline rce(s) Supporting Document(s) Leukocytes [#/volume] in Blood by Automated count 6.4 x10*3/UL 4.1-10 .9 [facility] ([facility]) Hemoglobin [Mass/volume] in Blood 13.5 g/dL [facility].0-[facility] Hematocrit [Volume Fraction] of Blood by Automated count 40.6 % 3 7.0-51.0 [facility] Erythrocytes [#/volume] in Blood by Automated count 4.61 x10*6/UL 4.2 0-6.30 [facility] ([facility]) MCH 29.3 pg 26.0-32.0 [facility] ([facility]) MCHC 33.2 g/dL 31.0-38.0 [facility] ([facility]) MCV 88.0 fL 80.0-97.0 [facility] ([facility]) Erythrocyte distribution width [Ratio] by Automated count 13.0 % 11.6-13.7 [facility] Lymph % 22.9 % 10.0-58.5 [facility] Platelets [#/volume] in Blood by Automated count 209 x10*3/UL 140-440 [facility] ([facility]) MPV 8.1 FL 7.8-11.0 [facility] Mid % 8.4 % 1.7-9.3 [facility] Lymph # 1.4 x10*3/UL 0.6-4.1 [facility] ([facility]) Neut % 68.7 % 37.0-92.0 [facility] Mid # 0.6 x10*3/UL 0.1-0.6 [facility] ([facility]) Neut # 4.4 x10*3/UL 2.0-7.8 [facility] ([facility]) Procedure Social History Code Duration Value Status Description Data Source(s ) Smoking 03/13/2020 12:00:00 AM EST - 05/10/1982 12:00:00 AM EST Patient is a former smoker completed Patient is a former smoker [facility] ([facility], ) Vital Signs ID Date Data Source UNK Name Value Range Interpretation Code Description Data Source(s) Body mass index (BMI) [Ratio] 19.5 kg/m2 19.5 k g/m2 [facility] Oxygen saturation in Arterial blood by Pulse oximetry 83 % 83 % [facility]) 88-94 on 2 liters [place] Body weight 110.00 [lb_av] 110.00 [lb_av] [facility] T ([facility]) Body height 63.0 [in_i] 63.0 [in_i] [facility] ([facility]) 5'3" Heart rate 98 /min 98 /min [facility]) Diastolic blood pressure 72 mm[Hg] 72 mm[Hg] [facility]) Systolic blood pressure 122 mm[Hg] 122 mm[Hg] M [facility] ([facility]) Body surface area Derived from formula 1.63 m2 1.63 m2 [facility] ) Body weight 56.246 kg 56.246 kg [facility] ([facility]) [place] body weight 142 [lb_av] 142 [lb_av] [facility] T ([facility]) Body mass index (BMI) [Ratio] 20.0 kg/m2 20.0 k g/m2 [facility] ([facility]) Body weight 124.00 [lb_av] 124.00 [lb_av] [facility] T ([facility]) Body height 66 [in_i] 66 [in_i] [facility] ([facility]) 5'6" Body surface area Derived from formula 1.63 m2 1.63 m2 [facility] ([facility]) Body weight 56.246 kg 56.246 kg [facility] ([facility]) [place] body weight 142 [lb_av] 142 [lb_av] [facility] T ([facility]) Body mass index (BMI) [Ratio] 20.0 kg/m2 20.0 k g/m2 [facility] ([facility]) Body weight 124.00 [lb_av] 124.00 [lb_av] [facility] ([facility]) Body height 66 [in_i] 66 [in_i] [facility] ([facility]) 5'6" Body surface area Derived from formula 1.63 m2 1.63 m2 [facility] ([facility]) Body weight 56.246 kg 56.246 kg [facility] ([facility]) [place] body weight 142 [lb_av] 142 [lb_av] [facility] ([facility]) Body mass index (BMI) [Ratio] 20.0 kg/m2 20.0 k g/m2 [facility] ([facility]) Body weight 124.00 [lb_av] 124.00 [lb_av] [facility] ([facility]) Body height 66 [in_i] 66 [in_i] [facility] ([facility]) 5'6" Body mass index (BMI) [Ratio] 22.3 kg/m2 22.3 k g/m2 [facility] ([facility]) Oxygen saturation in Arterial blood by Pulse oximetry 98 % 98 % [facility] ([facility]) Body weight 126.00 [lb_av] 126.00 [lb_av] [facility] ([facility]) Body height 63.0 [in_i] 63.0 [in_i] [facility] 5'3" Heart rate 98 /min 98 /min [facility] ([facility]) Diastolic blood pressure 70 mm[Hg] 70 mm[Hg] [facility] ([facility]) Systolic blood pressure 132 mm[Hg] 132 mm[Hg] [facility] ([facility]) Diastolic blood pressure 100 mm[Hg] 100 mm[Hg] [facility] ([facility]) Systolic blood pressure 158 mm[Hg] 158 mm[Hg] [facility] ([facility]) Body surface area Derived from formula 1.[address] [facility] ([facility]) Body weight 56.[address] [facility] ([facility]) [place] body weight 142 [lb_av] 142 [lb_av] [facility] T ([facility]) Body mass index (BMI) [Ratio] 20.0 kg/m2 20.0 k g/m2 [facility] ([facility]) Body weight 124.00 [lb_av] 124.00 [facility]av] [facility] Body height 66 [in_i] 66 [in_i] [facility] ([facility]) 5'6" Oxygen saturation in Arterial blood by Pulse oximetry 97 % 97 % [facility] ([facility]) Heart rate 94 /min 94 /min [facility] ([facility]) Diastolic blood pressure 80 mm[Hg] 80 mm[Hg] [facility] ([facility]) Systolic blood pressure 130 mm[Hg] 130 mm[Hg] [facility] ([facility]) Body mass index (BMI) [Ratio] 24.4 kg/m2 24.4 k g/m2 [facility] ([facility]) Oxygen saturation in Arterial blood by Pulse oximetry 96 % 96 % [facility] ([facility] Body weight 138.00 [lb_av] 138.00 [[facility]_av] [facility] Body height 63.0 [in_i] 63.0 [in_i] [facility] ([facility]) 5'3" Heart rate 96 /min 96 /min [facility] ([facility]) Diastolic blood pressure--standing 54 mm[Hg] 5 4 mm[Hg] [facility] ([facility]) Systolic blood pressure--standing 82 mm[Hg] 82 mm[Hg] [facility] ([facility]) Diastolic blood pressure--sitting 64 mm[Hg] 64 mm[Hg] [facility] ([facility]) Systolic blood pressure--sitting 90 mm[Hg] 90 mm[Hg] [facility] ([facility]) Diastolic blood pressure--supine 68 mm[Hg] 68 mm[Hg] [facility] ([facility]) Systolic blood pressure--supine 100 mm[Hg] 100 mm[Hg] [facility] ([facility]) Diastolic blood pressure 70 mm[Hg] 70 mm[Hg] [facility] ([facility]) Systolic blood pressure 126 mm[Hg] 126 mm[Hg] [facility] ([facility]) Body mass index (BMI) [Ratio] 25.7 kg/m2 25.7 k g/m2 [facility] ([facility]) Body weight 145.00 [lb_av] 145.00 [facility]lb_av] [facility] Body height 63.0 [in_i] 63.0 [in_i] [facility] ([facility]) 5'3" Heart rate 56 /min 56 /min [facility] ([facility]) Diastolic blood pressure 72 mm[Hg] 72 mm[Hg] [facility] ([facility]) Systolic blood pressure 110 mm[Hg] 110 mm[Hg] [facility] ([facility]) [place] body weight 124 [lb_av] 124 [lb_av] [facility] ([facility]) Body mass index (BMI) [Ratio] 26.6 kg/m2 26.6 k g/m2 [facility] ([facility], ) Body weight 150.00 [lb_av] 150.00 [lb_av] MEDEN T ([facility], ) Body height 63 [in_i] 63 [in_i] [facility] 5'3" Respiratory rate 14 /min 14 /min MEDENT ( [facility], ) Heart rate 70 /min 70 /min MEDENT ([facility], ) Diastolic blood pressure 80 mm[Hg] 80 mm[Hg] MEDENT ([facility], ) Systolic blood pressure 125 mm[Hg] 125 mm[Hg] [facility], [facility] Body mass index (BMI) [Ratio] 28.2 kg/m2 28.2 k g/m2 MEDENT ([facility]) Oxygen saturation in Arterial blood by Pulse oximetry 97 % 97 % [facility] Body weight 159.25 [lb_av] 159.25 [lb_av] MEDEN T ([facility]) Body height 63.0 [in_i] 63.0 [in_i] MEDENT ([facility]) 5'3" Heart rate 57 /min 57 /min MEDENT ([facility]) Diastolic blood pressure 76 mm[Hg] 76 mm[Hg] MEDENT ([facility]) @ 11:54 Systolic blood pressure 126 mm[Hg] 126 mm[Hg] EDENT ([facility]) @ 11:54 Diastolic blood pressure 60 mm[Hg] 60 mm[Hg] MEDENT ([facility]) @ 11:23 Systolic blood pressure 138 mm[Hg] 138 mm[Hg] [facility] @ 11:23
[2020-06-20 12:53] LABS: ALBUMIN 3.4 GM/DL (3.2-5.2); ALT/SGPT 32 U/L (12-78); BILIRUBIN,DIRECT 0.1 MG/DL (0.0-0.2); BILIRUBIN,TOTAL 0.8 MG/DL (0.2-1.0); BLOOD UREA NITROGEN 23 MG/DL (7-18); CALCIUM LEVEL 9.8 MG/DL (8.8-10.2); CARBON DIOXIDE LEVEL 33 MEQ/L (21-32); CHLORIDE LEVEL 103 MEQ/L (98-107); CK-MB VALUE MASS 1.3 NG/ML (<3.6); CPK CREATINE PHOSPHOKINASE 116 U/L (39-308); CREATININE FOR GFR 1.23 MG/DL (0.70-1.30); GLOMERULAR FILTRATION RATE 59.1 (>35); GLUCOSE, FASTING 109 MG/DL (70-100); MB/CK RELATIVE INDEX 1.12 (< OR =4); NT-PRO BNP 684 PG/ML (<450); POTASSIUM SERUM 4.2 MEQ/L (3.5-5.1); SODIUM LEVEL 144 MEQ/L (136-145); TOTAL PROTEIN 8.7 GM/DL (6.4-8.2); TROPONIN I < 0.02 NG/ML (< 0.10)
[2020-06-20] MEDS ORDERED: METAL LOCK LOOP XX ONE (13:10)
[2020-06-20] MEDS ORDERED: ASPI1CHW3 GT (13:29)
[2020-06-20] MEDS ORDERED: [UNRECOGNIZED DRUG - CODE] GT (13:34)
[2020-06-20] MEDS ORDERED: CLAR5TAB11 SL (13:34)
[2020-06-20] MEDS ORDERED: THERTAB52 GT (13:34)
[2020-06-20] MEDS ORDERED: LevoFLOXacin IV 750 MG in IV 1 EA IV ONE (14:00)
[2020-06-20] MEDS ORDERED: ACETAMINOPHEN TAB 650MG DOSE (2X325MG) PO PRN (14:15)
--- OUTSIDE RECORDS SUMMARY | 2020-06-20 14:19 | CCD ---
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 Name Role Phone Matt CAMARILLO MD Unavailable [...] CAMARILLO MD Unavailable Unavailable OSIRIS, GERONIMO AURORA SCREW DOWN-C Unavailable Unavailable OSIRIS, GERONIMO AURORA SCREW DOWN-C Unavailable Unavailable OSIRIS, GERONIMO AURORA SCREW DOWN-C Unavailable Unavailable OSIRIS, GERONIMO AURORA SCREW DOWN-C Unavailable Unavailable OSIRIS, GERONIMO AURORA SCREW DOWN-C Unavailable Unavailable OSIRIS, GERONIMO AURORA SCREW DOWN-C Unavailable Unavailable OSIRIS, GERONIMO AURORA SCREW DOWN-C Unavailable Unavailable OSIRIS, GERONIMO AURORA SCREW DOWN-C Unavailable Unavailable OSIRIS, GERONIMO AURORA SCREW DOWN-C Unavailable Unavailable OSIRIS, GERONIMO AURORA SCREW DOWN-C Unavailable Unavailable OSIRIS, GERONIMO AURORA SCREW DOWN-C Unavailable Unavailable OSIRIS, GERONIMO AUROAR SCREW DOWN-C Unavailable Unavailable OSIRIS, GERONIMO AURORA SCREW DOWN-C Unavailable Unavailable OSIRIS, GERONIMO AURORA SCREW DOWN-C Unavailable Unavailable OSIRIS, GERONIMO AURORA SCREW DOWN-C Unavailable Unavailable OSIRIS, GERONIMO AURORA SCREW DOWN-C Unavailable Unavailable Toño Winchester MD Unavailable Unavailable [...] F Phucjavan NEWMAN Unavailable Unavailable White, F Phucjaavn NEWMAN Unavailable Unavailable White, F Phuc Unavailable [...] Mela PAYAN MD Unavailable Unavailable MALACHI, Mela PAAYN MD Unavailable Unavailable MALACHI, Mela PAYAN MD [...] Unavailable Mela LY MD Unavailable Unavailable Mela YL MD Unavailable Unavailable Mela LY MD Unavailable [...] Unavailable Unavailable Cathy Sanders MD Unavailable Unavailable [place], Andres MD Unavailable Unavailable [place], Andres MD Unavailable Unavailable [place], Andres MD Unavailable Unavailable [place], Andres MD Unavailable Unavailable [place], Andres MD Unavailable Unavailable [place], Andres MD Unavailable Unavailable [place], Andres MD Unavailable Unavailable [place], Andres MD Unavailable Unavailable [place], Andres MD Unavailable Unavailable [place], Andres MD Unavailable Unavailable [place], Andres MD Unavailable Unavailable [place], Andres MD Unavailable Unavailable [place], Andres MD Unavailable Unavailable [place], Andres MD Unavailable Unavailable [place], Andres MD Unavailable Unavailable [place], Andres MD Unavailable Unavailable [place], Andres MD Unavailable Unavailable [place], Andres MD Unavailable Unavailable [place], Andres MD Unavailable Unavailable [place], Andres MD Unavailable Unavailable [place], Andres MD Unavailable Unavailable [place], Andres MD Unavailable Unavailable [place], Andres MD Unavailable Unavailable [place], Andres MD Unavailable Unavailable [place], Andres MD Unavailable Unavailable [place], Andres MD Unavailable Unavailable [place], Adnres MD Unavailable Unavailable [place], Andres MD Unavailable Unavailable AliCathy MD Unavailable [...] is protected by Article 27-F of the [facility] Public Health law. If you continue you may have access to information: Regarding HIV / AIDS; Provided by facilities licensed or operated by the [facility] Office of Mental Health; or Provided by the [facility] Office for People With Developmental Disabilities. If such information is present, then the following [facility] mandated warning applies: This information has [...] law may result in a fine or detention sentence or both. A general authorization for the release of medical or other information is NOT sufficient authorization for further disc losure. Allergies and Adverse Reactions Type Description Substance Reaction Status Data Source(s ) Food allergy SHRIMP SHRIMP ANAPHYLAXIS [facility] Drug allergy IODINE IODINE [facility] Family History Family Member Name Family Member Gender Family Member Status Date o f Status Description Data Source(s) Unknown Unknown Problem [facility] ([facility], ) father, brothers Unknown Male [...] Attender: ORA ALVAREZBF 06/19/2020 12:00:00 AM EST [facility] Outpatient Attender: Andres Green/Crista/Tobin/Omerd l 06/03/2020 01:40:00 PM EST [facility] ([facility] Outpatient Attender: Andres Green/Crista/Tobin/Sharifa l 04/26/2020 12:00:00 PM EST [facility] ([facility], ) Office Visit Attender: Phuc Meade 03/26 10:30:00 AM EST [facility] ([facility] ) Outpatient Attender: AURORA Green/Crista/Tobin/R eindl 03/13/2020 09:00:00 AM EST [facility] ([facility] Outpatient Attender: Cathy Sanders MD Main office - [place] 02/15/2020 10:45:00 AM EDT [facility] ([facility], ) Outpatient Attender: ORA THOMAS.[facility] 01/19/2020 12:00:00 AM EDT [facility] Office Visit Attender: Phuc Meade 12/28 11:30:00 AM EDT [facility] ([facility] ) Outpatient Attender: Cathy Sanders MD Main office - [place] 11/14/2019 12:45:00 PM EDT [facility] ([facility], ) Office Visit Attender: Cathy Sanders MD Main office - [place] 09/28/2019 01:30:00 PM EDT [facility] ([facility] Outpatient Attender: Cathy Sanders MDConsultant: OSMAN CAMARILLO MD 08/03/2019 11:20:00 AM EDT - 08/03/2019 12:20:00 PM EDT [facility] Outpatient Attender: ORA LY MD BF-BF 07/18/2019 12:00:00 AM EDT [facility] Outpatient Attender: Phuc Meade 04/26 10:30:00 AM EST MED[facility] ([facility] ) Immunizations Vaccine Date Status Description Data Source(s) This CVX code allows reporting of a vacc ination when formulation is unknown (for example, when recording a Influenza vaccination when noted on a vaccination card) 02/19/2020 08:19:00 AM EDT completed MEDEN T ([facility]) Medications Medication Brand Name Start Date Product Form Dose Route Admi nistrative Instructions Pharmacy Instructions Status Indications Reaction Description Data Source(s) 100 mcg/0.5 mL 05/25/2020 12:00:00 AM EST suspension 0 INJECT BY [facility] (FIRST DOSE) INJECT BY [facility] (FIRST DOSE) SOLD: 05/25/2020 [facility] Omeprazole 40 MG Delayed Release Oral Capsule Omeprazole 04/26/2020 12:00:00 AM EST ORAL active MED[facility] ([facility], ) Ipratropium Blevins Ipratropium Blevins 04/26/2020 12:00:00 AM EST active MED[facility] ([facility], ) 200 ACTUAT Ipratropium Blevins 0.017 MG/ACTUAT Metered Dose Inhaler [Atrovent] Atrovent HFA 04/26/2020 12:00:00 AM EST completed MED[facility] ([facility], ) Flonase Allergy Relief Flonase Allergy Relief 04/01/2020 12:00:[address] active MEDENT ([facility]) Memantine hydrochloride 10 MG Oral Tablet Memantine HCL 12/29/2019 12:00:00 AM EDT ORAL active [facility] ([facility]) Memantine hydrochloride 10 MG Oral Tablet Memantine HCL 11/14/2019 12:00:00 AM EDT ORAL active MEDENT ([facility], ) Famotidine 20 MG Oral [...] type / Coverage type Policy ID Covered democrat ID Covered democrat's relationship to talbot Policy Talbot Plan Information FOR LIFE [id number] SP [id number] MEDICARE [id number] SP [id number] MEDICARE [id number] Yasmin [id number] Yasmin [id number] FOR LIFE -O/P [id number] 18 [id number] MEDICARE PART A -O/P [id number] 18 [id number] [facility] Trad/MX Medigap Part B [id number] Family Depe ndent [id number] WPS For Life Medigap Part B [id number] Self [id number] Medicare Natl Govt Servic Medicare Primary [id number] Self [id number] [place] Medigap Part B [id number] Family Dep endent [id number] [facility] [id number] Yasmin [id number] [place] Trad/[place] Medigap Part B [id number] Family Depe ndent [id number] WPS For Life Medigap Part B [id number] Self [id number] Medicare Natl Govt Servic Medicare Primary [id number] Self [id number] WPS For Life Medigap Part B [id number] Self [id number] [place] Medicare Primary [id number] Self [id number] [facility] Health Maintenance Organization (HMO) [id number] Family Dependent [id number] [place] Trad/[place] Medigap Part B [id number] Family Depe ndent [id number] WPS For Life Medigap Part B [id number] Self [id number] Medicare Natl Govt Servic Medicare Primary [id number] Self [id number] MEDICARE [id number] SP [id number] FOR LIFE [id number] SP [id number] MEDICARE [id number] SP [id number] A WPS For Life Medigap Part B [id number] Self [id number] [place] Medicare Primary [id number] Self [id number] [employer] Health Maintenance Organization (HMO) [id number] Family Dependent [id number] [place] Trad/MX Commercial [id number] Family Dependen t [id number] WPS For Life Medigap Part B [id number] Self [id number] Medicare Natl Govt Servic Medicare Primary [id number] Self [id number] MEDICARE [id number] Yasmin [id number] A BS [place] Trad/[place] Commercial [id number] Family Dependen t [id number] WPS For Life Medigap Part B [id number] Self [id number] Medicare Natl Govt Servic Medicare Primary [id number] Self [id number] For Life WPS Medigap Part B [id number] Self [id number] Medicare Natl Gov't Servi Medicare Primary [id number] Self [id number] MEDICARE [id number] SP [id number] A [place] Trad/MX Commercial [id number] Family Dependen t [id number] WPS For Life Medigap Part B [id number] Self [id number] Medicare Natl Govt Servic Medicare Primary [id number] Self [id number] [place]ad/[place] Medigap Part B [id number] Family Depend ent 806 [place] Trad/MX Commercial 802 Family Dependent 802 WPS For Life Medigap Part B Self Medicare Natl Govt Servic Medicare Primary Self For Life WPS Medigap Part B Self Medicare Natl Gov't Servi Medicare Primary Self For Life Medigap Part B Self Medicare [place] Primary Self [place] 306/806 [id number] Yasmin [id number] FOR LIFE -I/P [id number] 18 [id number] MEDICARE PART A -I/P [id number] 18 [id number] A [id number] Problems, Conditions, and Diagnoses Code Display Name Description Problem Type Effective Dates Data Source(s) 754081176 History of cerebrovascular accident with out residual deficits History of cerebrovascular accident without residual deficits Problem 07/04/2019 12:00:00 AM EST MED[facility] ([facility], ) [id number] 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 [place] Diagnosis 07/18/2019 04:27:03 PM EDT [facility] Surgeries/Procedures Procedure Description Date Indications Data Source(s) Magnetic Resonance Angiogtaphy Head W/O Contrast Material(S) 07/08/2019 12:00:00 AM EST [facility] ([facility] Magnetic Resonance Angiogtaphy Head W/O Contrast Material(S) 07/08/2019 12:00:00 AM EST [facility] ([facility] Magnetic Resonance Angiography Neck W/O Contrast Materials 07/08/2019 12:00:00 AM EST [facility] ([facility] Magnetic Resonance Angiography Neck W/O Contrast Materials 07/08/2019 12:00:00 AM EST [facility] ([facility] MRI BRAIN BRAIN STEM W/O CONTRAST MATERIAL 07/08/2019 12:00:00 AM EST [facility] ([facility], ) MRI BRAIN BRAIN STEM W/O CONTRAST MATERIAL 07/08/2019 12:00:00 AM EST [facility] ([facility]) Results ID Date Data Source [id number] 06/19/2020 02:20:40 PM EST [facility]FORMATIONPatient MRN Name Date of Age Gend*PT [id number] Leon Cooper 1930 89 years M ---PT Location Admission Date/Time Visit ID Attending Provider --- --- --- --- EPI ID CSN Admitting Provider [id number] ---Cardiology History and PhysicalName: Leon Cooper Gender: maleDate of : 1930 Age: 89 yearsPrimary Care Provider / Referring Physician[facility] Telemedicine VisitPatient was identified by name and date of .Verbal consent was obtained from the patient for this telemedicine visit.Patient is aware of the risks, limitations, and benefits of a telemedicinevisit.This telemedicine assessment was conducted remotely with the assistance ofAvidbank Holdingsication technology: Telephone Only Codes [id number]: 21- 30 minutes of medicaldiscussion: Telephone OnlyCurrent [...] file Gets together: Not on file Attends confucianism service: Not on file Active member of [...] Respiratory Therapy Supplies (CARETOUCH 2 CPAP HOSE SHOULDER PAD MOLDER) [facility], by Does notapply route, Disp: , Rfl: [...] parts of this document, were dictated using Beanstalk [employer]. A reasonable attempt at proofreading has been made to minimize errors.Please call with any questions or corrections. Name Value Range Interpretation Code Description Data Rosaline rce(s) Supporting Document(s) ID Date Data Source [id number] 03/26/2020 12:04:00 PM EST MEDENT ([facility]) Name Value Range Interpretation Code Description Data Rosaline rce(s) Supporting Document(s) Thyrotropin [Units/volume] in Serum or Plasma by Detec tion limit <= 0.05 mIU/L 1.28 uIU/mL 0.36-3.74 MED[facility] ([facility] ) ID Date Data Source [id number] 03/26/2020 12:04:00 PM EST [facility] ([facility]) Name Value Range Interpretation Code Description Data Rosaline rce(s) Supporting Document(s) Glucose [Mass/volume] in Serum or Plasma 96 mg/dL 74-99 [facility] ([facility]) 100-125 mg/dL PRE-DIABETES/FASTING >126 mg/dL DIABETES/FASTING Creatinine 1.2 mg/dL 0.6-1.3 [facility] [facility] Urea nitrogen [Mass/volume] in Serum or Plasma 18 mg/dL 7-18 [facility] ([facility]) Sodium [Moles/volume] in Serum or Plasma 142 meq/L 136-145 [facility] ([facility]) Chloride [Moles/volume] in Serum or Plasma 103 meq/L 98-107 [facility] ([facility]) Carbon dioxide, total [Moles/volume] in Serum or Plasma 33 meq/L 21 -32 [facility] ([facility]) Potassium [Moles/volume] in Serum or Plasma 4.5 meq/L 3.5-5.1 [facility] ([facility]) Calcium [Mass/volume] in Serum or Plasma 9.5 mg/dL 8.5-10.1 [facility] ([facility]) Alkaline phosphatase isoenzyme [Units/volume] in Serum or Pl asma 125 mg/dL 46-116 [facility] ([facility]) Alanine aminotransferase [Enzymatic activity/volume] in Seru m or Plasma 41 U/L 12-78 [facility] ([facility]) Aspartate aminotransferase [Enzymatic activity/volume] in Serum or Plasma 29 U/L 15-37 [facility] ([facility] ) Total Bilirubin 0.6 mg/dL 0.2-1.0 [facility] ([facility]) Albumin [Mass/volume] in Serum or Plasma 3.3 g/dL 3.4-5.0 [facility] A/G Ratio 0.70 CALC 1.00-1.90 [facility] [facility] Proteinase 3 Ab [Units/volume] in Serum 8.0 g/dL 6.4-8.2 [facility] ([facility]) Glomerular filtration rate/1.73 sq M pre dicted among non-blacks [Volume Rate/Area] in Serum or Plasma by Creatinine-based formula (MDRD) 57 mL/min [facility] [facility] Glomerular filtration rate/1.73 sq M pre dicted among blacks [Volume Rate/Area] in Serum or Plasma by Creatinine-based formula (MDRD) Laboratory test result [facility] [facility] <content>CHRONIC KIDNEY DISEASE STAGING PER NKF</content>
<content></content>
<content>STAGE I & II GFR >= 60 NORMAL TO MILDLY DECREASED</content>
<content>STAGE III GFR 30-59 MODERATELY DECREASED</content>
<content>STAGE IV GFR 15-29 SEVERELY DECREASED</content>
<content>STAGE V GFR <15 VERY LITTLE GFR LEFT</content>
<content>ESRD GFR <15 ON PRODUCTION COORDINATOR</content>
<content></content> ID Date Data Source [id number] 03/26/2020 12:04:00 PM EST [facility] ([facility]) Name Value Range Interpretation Code Description Data Rosaline rce(s) Supporting Document(s) Leukocytes [#/volume] in Blood by Automated count 7.0 x10*3/UL 4.1-10 .9 [facility] ([facility]) Erythrocytes [#/volume] in Blood by Automated count 4.76 x10*6/UL 4.2 0-6.30 [facility] ([facility]) MCV 88.6 fL 80.0-97.0 [facility] [facility]) Hematocrit [Volume Fraction] of Blood by Automated count 42.2 % 3 7.0-51.0 [facility] ([facility]) Hemoglobin [Mass/volume] in Blood 13.9 g/dL 12.0-18.0 [facility] ([facility]) MCHC 33.1 g/dL 31.0-38.0 [facility] [facility]) MCH 29.3 pg 26.0-32.0 [facility] [facility]) Platelets [#/volume] in Blood by Automated count 209 x10*3/UL 140-440 [facility] ([facility]) Erythrocyte distribution width [Ratio] by Automated count 13.7 % 11.6-13.7 [facility] ([facility]) MPV 8.5 FL 7.8-11.0 [facility] [facility]) Mid % 4.7 % 1.7-9.3 [facility] [facility]) Lymph % 17.3 % 10.0-58.5 [facility] [facility]) Lymph # 1.2 x10*3/UL 0.6-4.1 [facility] ([facility]) Neut % 78.0 % 37.0-92.0 [facility] [facility]) Mid # 0.4 x10*3/UL 0.1-0.6 [facility] ([facility] [facility]) Neut # 5.4 x10*3/UL 2.0-7.8 [facility] ([facility]) ID Date Data Source [id number] 01/19/2020 02:28:06 PM EDT [facility] INFORMATIONPatient MRN Name Date of Age Gend*PT [id number] Leon Cooper 1930 89 years M ---PT Location Admission Date/Time Visit ID Attending Provider --- --- --- --- EPI ID CSN Admitting Provider [id number] ---Cardiology History and PhysicalName: Leon Cooper Gender: maleDate of : 1930 Age: 89 yearsPrimary Care Provider / Referring Physician: [facility] Telemedicine VisitPatient was identified by name and date of .Verbal consent was obtained from the patient for this telemedicine visit.Patient is aware of the risks, limitations, and benefits of a telemedicinevisit.This telemedicine assessment was conducted remotely with the assistance ofAvidbank Holdingsication technology: Telephone Only Codes 46636: 21- 30 minutes of medicaldiscussion: Telephone OnlyCurrent [...] dementiaThis is a follow up visit from [facility] Denies dizziness or lightheadedness. Denies any [...] file Gets together: Not on file Attends confucianism service: Not on file Active member of [...] parts of this document, were dictated using Beanstalk [employer]. A reasonable attempt at proofreading has been made to minimize errors.Please call with any questions or corrections. Name Value Range Interpretation Code Description Data [facility] Supporting Document(s) ID Date Data Source [id number] 12/29/2019 12:24:00 PM EDT [facility] ([facility]) Name Value Range Interpretation Code Description Data [facility] rce(s) Supporting Document(s) Glucose [Mass/volume] in Serum or Plasma 112 mg/dL 74-99 [facility] ([facility]) 100-125 mg/dL PRE-DIABETES/FASTING >126 mg/dL DIABETES/FASTING Creatinine 1.7 mg/dL 0.6-1.3 [facility] [facility] Urea nitrogen [Mass/volume] in Serum or Plasma 26 mg/dL 7-18 [facility] ([facility]) Sodium [Moles/volume] in Serum or Plasma 142 meq/L 136-145 [facility] ([facility]) Chloride [Moles/volume] in Serum or Plasma 105 meq/L 98-107 [facility] ([facility] [facility]) Potassium [Moles/volume] in Serum or Plasma 5.1 meq/L 3.5-5.1 [facility] ([facility] [facility]) Carbon dioxide, total [Moles/volume] in Serum or Plasma 28 meq/L 21 -32 [facility] [facility] Calcium [Mass/volume] in Serum or Plasma 9.3 mg/dL 8.5-10.1 [facility] ([facility] [facility]) Alkaline phosphatase isoenzyme [Units/volume] in Serum or Pl asma 99 mg/dL 46-116 [facility] ([facility] [facility]) Aspartate aminotransferase [Enzymatic activity/volume] in Serum or Plasma 22 U/L 15-37 [facility] ([facility] ) Total Bilirubin 0.8 mg/dL 0.2-1.0 [facility] Proteinase 3 Ab [Units/volume] in Serum 8.0 g/dL 6.4-8.2 [facility] ([facility] [facility]) Albumin [Mass/volume] in Serum or Plasma 3.4 g/dL 3.4-5.0 [facility] ([facility] [facility]) Alanine aminotransferase [Enzymatic activity/volume] in Seru m or Plasma 27 U/L 12-78 [facility] [facility] Glomerular filtration rate/1.73 sq M pre dicted among non-blacks [Volume Rate/Area] in Serum or Plasma by Creatinine-based formula (MDRD) 38 mL/min [facility] [facility] Glomerular filtration rate/1.73 sq M pre dicted among blacks [Volume Rate/Area] in Serum or Plasma by Creatinine-based formula (MDRD) 46 mL/min [facility] ([facility]) <content>CHRONIC KIDNEY DISEASE STAGING PER NKF</content>
<content></content>
<content>STAGE I & II GFR >= 60 NORMAL TO MILDLY DECREASED</content>
<content>STAGE III GFR 30-59 MODERATELY DECREASED</content>
<content>STAGE IV GFR 15-29 SEVERELY DECREASED</content>
<content>STAGE V GFR <15 VERY LITTLE GFR LEFT</content>
<content>ESRD GFR <15 ON PRODUCTION COORDINATOR</content>
<content></content> A/G Ratio 0.74 CALC 1.00-1.90 [facility] ([facility]) ID Date Data Source [id number] 12/29/2019 12:24:00 PM EDT [facility] ([facility]) Name Value Range Interpretation Code Description Data Rosaline rce(s) Supporting Document(s) Leukocytes [#/volume] in Blood by Automated count 7.3 x10*3/UL 4.1-10 .9 [facility] ([facility]) Erythrocytes [#/volume] in Blood by Automated count 4.18 x10*6/UL 4.2 0-6.30 [facility] [facility] Hemoglobin [Mass/volume] in Blood 12.3 g/dL 12.0-18.0 [facility] [facility] Hematocrit [Volume Fraction] of Blood by Automated count 36.5 % 3 7.0-51.0 [facility] [facility] MCH 29.5 pg 26.0-32.0 [facility] ([facility]) MCV 87.3 fL 80.0-97.0 [facility] ([facility]) MCHC 33.8 g/dL 31.0-38.0 [facility] ([facility]) Erythrocyte distribution width [Ratio] by Automated count 13.2 % 11.6-13.7 [facility] [facility] Platelets [#/volume] in Blood by Automated count 202 x10*3/UL 140-440 [facility] ([facility]) MPV 8.3 FL 7.8-11.0 [facility] ([facility]) Lymph % 20.7 % 10.0-58.5 [facility] ([facility]) Lymph # 1.5 x10*3/UL 0.6-4.1 [facility] ([facility]) Mid % 6.9 % 1.7-9.3 [facility] [facility] Neut % 72.4 % 37.0-92.0 [facility] [facility]) Neut # 5.3 x10*3/UL 2.0-7.8 [facility] ([facility]) Mid # 0.5 x10*3/UL 0.1-0.6 [facility] ([facility]) ID Date Data Source [id number] 10/23/2019 10:39:00 AM EDT [facility] ([facility]) Name Value Range Interpretation Code Description Data Rosaline rce(s) Supporting Document(s) Thyrotropin [Units/volume] in Serum or Plasma by Detec tion limit <= 0.05 mIU/L 1.40 uIU/mL 0.36-3.74 [facility] ([facility] ) ID Date Data Source [id number] 10/23/2019 10:39:00 AM EDT [facility] ([facility]) Name Value Range Interpretation Code Description Data Rosaline rce(s) Supporting Document(s) Triglyceride [Mass/volume] in Serum or Plasma 65 mg/dL 30-150 [facility] ([facility]) Cholesterol [Mass/volume] in Serum or Plasma 131 mg/dL 131-200 [facility] ([facility]) Cholesterol in LDL [Mass/volume] in Serum or Plasma by calcu lation 59 CALC 50-159 [facility] ([facility]) Cholesterol in HDL [Mass/volume] in Serum or Plasma 59 mg/dL 35-60 [facility] ([facility]) ID Date Data Source [id number] 10/23/2019 10:39:00 AM EDT [facility] ([facility]) Name Value Range Interpretation Code Description Data Rosaline rce(s) Supporting Document(s) Glucose [Mass/volume] in Serum or Plasma 94 mg/dL 74-99 [facility] ([facility]) 100-125 mg/dL PRE-DIABETES/FASTING >126 mg/dL DIABETES/FASTING Urea nitrogen [Mass/volume] in Serum or Plasma 28 mg/dL 7-18 [facility] ([facility]) Creatinine 1.5 mg/dL 0.6-1.3 [facility] Sodium [Moles/volume] in Serum or Plasma 143 meq/L 136-145 [facility] ([facility]) Potassium [Moles/volume] in Serum or Plasma 4.8 meq/L 3.5-5.1 [facility] ([facility]) Chloride [Moles/volume] in Serum or Plasma 106 meq/L 98-107 [facility] ([facility]) Calcium [Mass/volume] in Serum or Plasma 8.9 mg/dL 8.5-10.1 [facility] ([facility]) Alkaline phosphatase isoenzyme [Units/volume] in Serum or Pl asma 90 mg/dL 46-116 [facility] ([facility]) Carbon dioxide, total [Moles/volume] in Serum or Plasma 26 meq/L 21 -32 [facility] ([facility]) Total Bilirubin 0.8 mg/dL 0.2-1.0 [facility] ([facility]) Alanine aminotransferase [Enzymatic activity/volume] in Seru m or Plasma 36 U/L 12-78 [facility] ([facility]) Aspartate aminotransferase [Enzymatic activity/volume] in Serum or Plasma 28 U/L 15-37 [facility] ([facility] ) Albumin [Mass/volume] in Serum or Plasma 3.6 g/dL 3.4-5.0 [facility] ([facility]) A/G Ratio 0.82 CALC 1.00-1.90 [facility]) Glomerular filtration rate/1.73 sq M pre dicted among non-blacks [Volume Rate/Area] in Serum or Plasma by Creatinine-based formula (MDRD) 44 mL/min [facility] ([facility]) Proteinase 3 Ab [Units/volume] in Serum 8.0 g/dL 6.4-8.2 [facility] ([facility]) Glomerular filtration rate/1.73 sq M pre dicted among blacks [Volume Rate/Area] in Serum or Plasma by Creatinine-based formula (MDRD) 54 mL/min [facility] ([facility]) <content>CHRONIC KIDNEY DISEASE STAGING PER NKF</content>
<content></content>
<content>STAGE I & II GFR >= 60 NORMAL TO MILDLY DECREASED</content>
<content>STAGE III GFR 30-59 MODERATELY DECREASED</content>
<content>STAGE IV GFR 15-29 SEVERELY DECREASED</content>
<content>STAGE V GFR <15 VERY LITTLE GFR LEFT</content>
<content>ESRD GFR <15 ON PRODUCTION COORDINATOR</content>
<content></content> ID Date Data Source [id number] 10/23/2019 10:39:00 AM EDT [facility] ([facility]) Name Value Range Interpretation Code Description Data Rosaline rce(s) Supporting Document(s) Leukocytes [#/volume] in Blood by Automated count 6.4 x10*3/UL 4.1-10 .9 [facility] ([facility]) Erythrocytes [#/volume] in Blood by Automated count 4.51 x10*6/UL 4.2 0-6.30 [facility] ([facility]) Hematocrit [Volume Fraction] of Blood by Automated count 39.5 % 3 7.0-51.0 [facility] ([facility]) MCV 87.7 fL 80.0-97.0 [facility]) Hemoglobin [Mass/volume] in Blood 13.1 g/dL 12.0-18.0 [facility] ([facility]) MCHC 33.0 g/dL 31.0-38.0 [facility] [facility]) MCH 29.0 pg 26.0-32.0 [facility] [facility]) Erythrocyte distribution width [Ratio] by Automated count 13.6 % 11.6-13.7 [facility] ([facility]) Platelets [#/volume] in Blood by Automated count 183 x10*3/UL 140-440 [facility] ([facility]) MPV 8.2 FL 7.8-11.0 [facility] [facility]) Lymph % 24.9 % 10.0-58.5 [facility] [facility]) Mid % 7.7 % 1.7-9.3 [facility] [facility]) Mid # 0.6 x10*3/UL 0.1-0.6 [facility] ([facility]) Neut % 67.4 % 37.0-92.0 [facility] Lymph # 1.5 x10*3/UL 0.6-4.1 [facility] ([facility]) Neut # 4.3 x10*3/UL 2.0-7.8 [facility] ([facility]) ID Date Data Source [id number] 08/03/2019 11:40:00 AM EDT [facility] ([facility], ) Name Value Range Interpretation Code Description Data Rosaline rce(s) Supporting Document(s) Laboratory test finding (navigational concept) Laboratory test result [facility] ([facility]) Test(s) 519982-Qrjzbdg E(Alpha Tocophero l); 709927- Vitamin E(Gamma Tocopherol); 248899-Jklzlkr B6 was developed and its performance characteristics determined by [employer]. It has not been cleared or approved by the Food and Drug Administration. Vitamin E(AlphaTocopherol) 10.5 mg/L 9.0-29.0 [facility], ) Vitamin E(GammaTocopherol) 0.9 mg/L 0.5-4.9 [facility] ([facility]) Reference intervals for alpha and gamma- tocopherol determined from National Health and Nutrition Examination Survey, 7453-1847. Individuals with alpha-tocopherol levels less than 5.0 mg/L are considered vitamin E deficient. ID Date Data Source [id number] 08/03/2019 11:40:00 AM EDT [facility] ([facility], ) Name Value Range Interpretation Code Description Data Rosaline rce(s) Supporting Document(s) Pyridoxine [Mass/volume] in Serum or Plasma 25.9 ug/L 5.3-46.7 [facility] ([facility], ) ID Date Data Source [id number] 08/03/2019 11:40:00 AM EDT [facility] ([facility], ) Name Value Range Interpretation Code Description Data Rosaline rce(s) Supporting Document(s) Laboratory test finding (navigational concept) Laboratory test result [facility] ([facility]) Test(s) 238444-Sge. B1, Whole Blood was developed and its performance characteristics determined by [employer]. It has not been cleared or approved by the Food and Drug Administration. Laboratory test finding (navigational concept) 126.3 nmol/L 66.5-200. 0 [facility] ([facility], ) ID Date Data Source [id number] 08/03/2019 11:40:00 AM EDT [facility] ([facility], ) Name Value Range Interpretation Code Description Data Rosaline rce(s) Supporting Document(s) Cobalamin (Vitamin B12) [Mass/volume] in Serum or Plasma 694 pg/mL 2 32-1245 [facility] ([facility], ) Thyrotropin [Units/volume] in Serum or Plasma 1.24 uIU/mL 0.47-5.01 [facility] ([facility]) Folate [Mass/volume] in Serum or Plasma Laboratory test result 5.6-45 .8 [facility] ([facility]) ID Date Data Source [id number] 08/07/2019 08:34:00 PM EDT [facility] Name Value Range Interpretation Code Description Data Rosaline rce(s) Supporting Document(s) [facility]) 039377-Erajtlq E(Alpha Tocophero l); 815100-Tmqbths E(Gamma Tocopherol); 237498-Ghrbkro B6was developed and its performance characteristics determinedby [facility]. It has not been cleared or approved by the Foodand Drug Administration. Alpha tocopherol [Mass/volume] in Serum or Plasma 10.5 mg/L 9.0-29.0 [facility] Gamma tocopherol [Mass/volume] in Serum or Plasma 0.9 mg/L 0.5-4.9 [facility] Reference intervals for alpha and gamma- tocopherol determined [place] Health and Nutrition Examination Survey, 4927-9085.Individuals with alpha- tocopherol levels less than 5.0 mg/L areconsidered vitamin E deficient. ID Date Data Source [id number] 08/07/2019 12:26:00 AM EDT [facility] Name Value Range Interpretation Code Description Data Rosaline rce(s) Supporting Document(s) Pyridoxine [Mass/volume] in Serum or Plasma 25.9 ug/L 5.3-46.7 [facility] ID Date Data Source [id number] 08/05/2019 07:53:00 AM EDT [facility] Name Value Range Interpretation Code Description Data Rosaline rce(s) Supporting Document(s) VITAMIN B-[address] [facility] Test(s) 293594-Bav. B1, Whole Bloodwas codey julianoped and its performance characteristics determinedby [facility]. It has not been cleared or approved by the Foodand Drug Administration. Thiamine [Moles/volume] in Blood 126.3 nmol/L 66.5-200.0 [facility] ID Date Data Source [id number] 08/03/2019 01:48:00 PM EDT [facility] Name Value Range Interpretation Code Description Data Rosaline rce(s) Supporting Document(s) Folate [Mass/volume] in Serum or Plasma >20.0 NG/ML 5.6 - 45.8 [facility] ID Date Data Source [id number] 08/03/2019 01:11:00 PM EDT [facility] Value Range Interpretation Code Description Data Rosaline rce(s) Supporting Document(s) Thyrotropin [Units/volume] in Serum or Plasma by Detec tion limit <= 0.05 mIU/L 1.24 uIU/mL 0.47 - 5.01 [facility] ID Date Data Source [id number] 08/03/2019 01:11:00 PM EDT [facility] Value Range Interpretation Code Description Data Rosaline rce(s) Supporting Document(s) Cobalamin (Vitamin B12) [Mass/volume] in Serum or Plasma 694 PG/ML 232 - 1245 [facility] ID Date Data Source [id number] 07/18/2019 05:09:18 PM EDT [facility]FORMATIONPatient MRN Name Date of Age Gend*PT [id number] Leon Cooper 1930 88 years M ---PT Location Admission Date/Time Visit ID Attending Provider --- --- --- --- EPI ID CSN Admitting Provider [id number] ---[facility] [id number] [facility], [address] (First Floor)[place], [place] [address]Wh.: Fax: Oardiology History and PhysicalName: Leon Cooper Gender: maleDate [...] file Gets together: Not on file Attends confucianism service: Not on file Active member of [...] toaffect 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 A reasonable attempt at proofreading has been made to minimize errors.Please call with any questions or corrections. Name Value Range Interpretation Code Description Data Rosaline rce(s) Supporting Document(s) ID Date Data Source [id number] 05/29/2019 01:25:00 PM EST [facility] ([facility]) Name Value Range Interpretation Code Description Data Rosaline rce(s) Supporting Document(s) Glucose [Mass/volume] in Serum or Plasma 103 mg/dL 74-99 [facility] ([facility]) 100-125 mg/dL PRE-DIABETES/FASTING >126 mg/dL DIABETES/FASTING Urea nitrogen [Mass/volume] in Serum or Plasma 25 mg/dL 7-18 [facility] ([facility]) Potassium [Moles/volume] in Serum or Plasma 4.5 meq/L 3.5-5.1 [facility] ([facility]) Sodium [Moles/volume] in Serum or Plasma 139 meq/L 136-145 [facility] ([facility]) Creatinine 1.6 mg/dL 0.6-1.3 [facility]) Chloride [Moles/volume] in Serum or Plasma 102 meq/L 98-107 [facility] ([facility]) Carbon dioxide, total [Moles/volume] in Serum or Plasma 28 meq/L 21 -32 [facility] ([facility]) Calcium [Mass/volume] in Serum or Plasma 9.2 mg/dL 8.5-10.1 [facility] ([facility]) Glomerular filtration rate/1.73 sq M pre dicted among non-blacks [Volume Rate/Area] in Serum or Plasma by Creatinine-based formula (MDRD) 41 mL/min [facility] ([facility]) Glomerular filtration rate/1.73 sq M pre dicted among blacks [Volume Rate/Area] in Serum or Plasma by Creatinine-based formula (MDRD) 50 mL/min [facility] ([facility]) <content>CHRONIC KIDNEY DISEASE STAGING PER NKF</content>
<content></content>
<content>STAGE I & II GFR >= 60 NORMAL TO MILDLY DECREASED</content>
<content>STAGE III GFR 30-59 MODERATELY DECREASED</content>
<content>STAGE IV GFR 15-29 SEVERELY DECREASED</content>
<content>STAGE V GFR <15 VERY LITTLE GFR LEFT</content>
<content>ESRD GFR <15 ON PRODUCTION COORDINATOR</content>
<content></content> ID Date Data Source [id number] 04/24/2019 11:16:00 AM EST [facility] ([facility]) Name Value Range Interpretation Code Description Data Rosaline rce(s) Supporting Document(s) Thyrotropin [Units/volume] in Serum or Plasma by Detec tion limit <= 0.05 mIU/L 1.46 uIU/mL 0.36-3.74 [facility] ([facility] ) ID Date Data Source [id number] 04/24/2019 11:16:00 AM EST [facility] Name Value Range Interpretation Code Description Data Rosaline rce(s) Supporting Document(s) Cholesterol [Mass/volume] in Serum or Plasma 129 mg/dL 131-200 [facility] ([facility]) Triglyceride [Mass/volume] in Serum or Plasma 52 mg/dL 30-150 [facility] ([facility]) Cholesterol in HDL [Mass/volume] in Serum or Plasma 55 mg/dL 35-60 [facility] ([facility]) Cholesterol in LDL [Mass/volume] in Serum or Plasma by calcu lation 64 CALC 50-159 [facility] ([facility]) ID Date Data Source [id number] 04/24/2019 11:16:00 AM EST [facility] ([facility]) Name Value Range Interpretation Code Description Data Rosaline rce(s) Supporting Document(s) Creatinine 1.6 mg/dL 0.6-1.3 [facility] ([facility]) Glucose [Mass/volume] in Serum or Plasma 88 mg/dL 74-99 [facility] ([facility]) 100-125 mg/dL PRE-DIABETES/FASTING >126 mg/dL DIABETES/FASTING Urea nitrogen [Mass/volume] in Serum or Plasma 26 mg/dL 7-18 [facility] ([facility]) Chloride [Moles/volume] in Serum or Plasma 103 meq/L 98-107 [facility] ([facility]) Sodium [Moles/volume] in Serum or Plasma 141 meq/L 136-145 [facility] ([facility]) Potassium [Moles/volume] in Serum or Plasma 4.9 meq/L 3.5-5.1 [facility] ([facility]) Carbon dioxide, total [Moles/volume] in Serum or Plasma 27 meq/L 21 -32 [facility] ([facility]) Alkaline phosphatase isoenzyme [Units/volume] in Serum or Pl asma 97 mg/dL 46-116 [facility] ([facility]) Total Bilirubin 0.6 mg/dL 0.2-1.0 [facility] ([facility]) Calcium [Mass/volume] in Serum or Plasma 9.3 mg/dL 8.5-10.1 [facility] ([facility]) Aspartate aminotransferase [Enzymatic activity/volume] in Serum or Plasma 26 U/L 15-37 [facility] ([facility] ) Alanine aminotransferase [Enzymatic activity/volume] in Seru m or Plasma 40 U/L 12-78 [facility] ([facility]) Albumin [Mass/volume] in Serum or Plasma 3.8 g/dL 3.4-5.0 [facility] ([facility]) Glomerular filtration rate/1.73 sq M pre dicted among non-blacks [Volume Rate/Area] in Serum or Plasma by Creatinine-based formula (MDRD) 41 mL/min [facility] ([facility]) Proteinase 3 Ab [Units/volume] in Serum 8.3 g/dL 6.4-8.2 [facility] ([facility]) NOTE: RESULT VERIFIED. A/G Ratio 0.84 CALC 1.00-1.90 [facility] ([facility]) Glomerular filtration rate/1.73 sq M pre dicted among blacks [Volume Rate/Area] in Serum or Plasma by Creatinine-based formula (MDRD) 50 mL/min [facility] [facility] <content>CHRONIC KIDNEY DISEASE STAGING PER NKF</content>
<content></content>
<content>STAGE I & II GFR >= 60 NORMAL TO MILDLY DECREASED</content>
<content>STAGE III GFR 30-59 MODERATELY DECREASED</content>
<content>STAGE IV GFR 15-29 SEVERELY DECREASED</content>
<content>STAGE V GFR <15 VERY LITTLE GFR LEFT</content>
<content>ESRD GFR <15 ON PRODUCTION COORDINATOR</content>
<content></content> ID Date Data Source [id number] 04/24/2019 11:16:00 AM EST [facility] Name Value Range Interpretation Code Description Data Rosaline rce(s) Supporting Document(s) Leukocytes [#/volume] in Blood by Automated count 6.4 x10*3/UL 4.1-10 .9 [facility] ([facility]) Hemoglobin [Mass/volume] in Blood 13.5 g/dL 12.0-18.0 [facility] [facility] Hematocrit [Volume Fraction] of Blood by Automated count 40.6 % 3 7.0-51.0 [facility] [facility] Erythrocytes [#/volume] in Blood by Automated count 4.61 x10*6/UL 4.2 0-6.30 [facility] ([facility]) MCH 29.3 pg 26.0-32.0 [facility] ([facility]) MCHC 33.2 g/dL 31.0-38.0 [facility] ([facility]) MCV 88.0 fL 80.0-97.0 [facility] ([facility]) Erythrocyte distribution width [Ratio] by Automated count 13.0 % 11.6-13.7 [facility] [facility] Lymph % 22.9 % 10.0-58.5 [facility] [facility]) Platelets [#/volume] in Blood by Automated count 209 x10*3/UL 140-440 [facility] ([facility]) MPV 8.1 FL 7.8-11.0 [facility]) Mid % 8.4 % 1.7-9.3 [facility] [facility] Lymph # 1.4 x10*3/UL 0.6-4.1 [facility] ([facility]) Neut % 68.7 % 37.0-92.0 [facility] [facility] Mid # 0.6 x10*3/UL 0.1-0.6 [facility] ([facility]) Neut # 4.4 x10*3/UL 2.0-7.8 [facility] ([facility]) Procedure Social History Code Duration Value Status Description Data Source(s ) Smoking 03/13/2020 12:00:00 AM EST - 05/10/1982 12:00:00 AM EST Patient is a former smoker completed Patient is a former smoker [facility] ([facility], ) Vital Signs ID Date Data Source UNK Name Value Range Interpretation Code Description Data Source(s) Body mass index (BMI) [Ratio] 19.5 kg/m2 19.5 k g/m2 [facility]) Oxygen saturation in Arterial blood by Pulse oximetry 83 % 83 % [facility]) 88-94 on 2 liters [place] Body weight 110.00 [lb_av] 110.00 [lb_av] [facility] T ([facility]) Body height 63.0 [in_i] 63.0 [in_i] [facility] ([facility]) 5'3" Heart rate 98 /min 98 /min [facility] ([facility]) Diastolic blood pressure 72 mm[Hg] 72 mm[Hg] [facility] ([facility]) Systolic blood pressure 122 mm[Hg] 122 mm[Hg] M [facility] ([facility]) Body surface area Derived from formula 1.63 m2 1.63 m2 [facility] ) Body weight 56.246 kg 56.246 kg [facility] ([facility]) [place] body weight 142 [lb_av] 142 [lb_av] [facility] T ([facility]) Body mass index (BMI) [Ratio] 20.0 kg/m2 20.0 k g/m2 [facility] ([facility]) Body weight 124.00 [lb_av] 124.00 [lb_av] [facility] T ([facility]) Body height 66 [in_i] 66 [in_i] [facility] ([facility]) 5'6" Body surface area Derived from formula 1.63 m2 1.63 m2 [facility] ([facility]) Body weight 56.246 kg 56.246 kg [facility] ([facility]) [place] body weight 142 [lb_av] 142 [lb_av] [facility] T ([facility]) Body mass index (BMI) [Ratio] 20.0 kg/m2 20.0 k g/m2 [facility] ([facility]) Body weight 124.00 [lb_av] 124.00 [lb_av] [facility] T ([facility]) Body height 66 [in_i] 66 [in_i] [facility] ([facility]) 5'6" Body surface area Derived from formula 1.63 m2 1.63 m2 [facility] ([facility]) Body weight 56.246 kg 56.246 kg [facility] ([facility]) [place] body weight 142 [lb_av] 142 [lb_av] [facility] T ([facility]) Body mass index (BMI) [Ratio] 20.0 kg/m2 20.0 k g/m2 [facility] ([facility]) Body weight 124.00 [lb_av] 124.00 [lb_av] [facility] T ([facility]) Body height 66 [in_i] 66 [in_i] [facility] ([facility]) 5'6" Body mass index (BMI) [Ratio] 22.3 kg/m2 22.3 k g/m2 [facility] ([facility]) Oxygen saturation in Arterial blood by Pulse oximetry 98 % 98 % [facility] ([facility]) Body weight 126.00 [lb_av] 126.00 [lb_av] [facility] T ([facility]) Body height 63.0 [in_i] 63.0 [in_i] [facility] 5'3" Heart rate 98 /min 98 /min [facility] ([facility]) Diastolic blood pressure 70 mm[Hg] 70 mm[Hg] [facility] ([facility]) Systolic blood pressure 132 mm[Hg] 132 mm[Hg] [facility] ([facility]) Diastolic blood pressure 100 mm[Hg] 100 mm[Hg] [facility]) Systolic blood pressure 158 mm[Hg] 158 mm[Hg] [facility] ([facility]) Body surface area Derived from formula 1.63 m2 1.63 m2 [facility] ([facility]) Body weight 56.246 kg 56.246 kg [facility] ([facility]) [place]on body weight 142 [lb_av] 142 [lb_av] [facility] T ([facility]) Body mass index (BMI) [Ratio] 20.0 kg/m2 20.0 k g/m2 [facility] ([facility]) Body weight 124.00 [lb_av] 124.00 [lb_av] [facility] Body height 66 [in_i] 66 [in_i] [facility] ([facility]) 5'6" Oxygen saturation in Arterial blood by Pulse oximetry 97 % 97 % [facility] ([facility]) Heart rate 94 /min 94 /min [facility] ([facility]) Diastolic blood pressure 80 mm[Hg] 80 mm[Hg] [facility] ([facility]) Systolic blood pressure 130 mm[Hg] 130 mm[Hg] [facility] ([facility]) Body mass index (BMI) [Ratio] 24.4 kg/m2 24.4 k g/m2 [facility] ([facility]) Oxygen saturation in Arterial blood by Pulse oximetry 96 % 96 % [facility] ([facility]) Body weight 138.00 [lb_av] 138.00 [lb_av] [facility] Body height 63.0 [in_i] 63.0 [in_i] [facility] ([facility]) 5'3" Heart rate 96 /min 96 /min [facility] ([facility]) Diastolic blood pressure--standing 54 mm[Hg] 5 4 mm[Hg] [facility] ([facility]) Systolic blood pressure--standing 82 mm[Hg] 82 mm[Hg] [facility] ([facility]) Diastolic blood pressure--sitting 64 mm[Hg] 64 mm[Hg] [facility] ([facility]) Systolic blood pressure--sitting 90 mm[Hg] 90 mm[Hg] [facility] ([facility]) Diastolic blood pressure--supine 68 mm[Hg] 68 mm[Hg] [facility] ([facility]) Systolic blood pressure--supine 100 mm[Hg] 100 mm[Hg] [facility] ([facility]) Diastolic blood pressure 70 mm[Hg] 70 mm[Hg] [facility] ([facility]) Systolic blood pressure 126 mm[Hg] 126 mm[Hg] [facility] ([facility]) Body mass index (BMI) [Ratio] 25.7 kg/m2 25.7 k g/m2 [facility] ([facility]) Body weight 145.00 [lb_av] 145.00 [lb_av] [facility] ([facility]) Body height 63.0 [in_i] 63.0 [in_i] [facility] ([facility]) 5'3" Heart rate 56 /min 56 /min [facility]) Diastolic blood pressure 72 mm[Hg] 72 mm[Hg] [facility] ([facility]) Systolic blood pressure 110 mm[Hg] 110 mm[Hg] [facility] ([facility]) [place] body weight 124 [lb_av] 124 [lb_av] [facility] ([facility]) Body mass index (BMI) [Ratio] 26.6 kg/m2 26.6 k g/m2 [facility] ([facility] ) Body weight 150.00 [lb_av] 150.00 [lb_av] [facility] ([facility] ) Body height 63 [in_i] 63 [in_i] [facility] 5'3" Respiratory rate 14 /min 14 /min [facility] ( [facility] ) Heart rate 70 /min 70 /min [facility] ([facility] ) Diastolic blood pressure 80 mm[Hg] 80 mm[Hg] [facility] ([facility] ) Systolic blood pressure 125 mm[Hg] 125 mm[Hg] [facility] ) Body mass index (BMI) [Ratio] 28.2 kg/m2 28.2 k g/m2 [facility] ([facility]) Oxygen saturation in Arterial blood by Pulse oximetry 97 % 97 % [facility] Body weight 159.25 [lb_av] 159.25 [lb_av] [facility] ([facility]) Body height 63.0 [in_i] 63.0 [in_i] [facility] ([facility]) 5'3" Heart rate 57 /min 57 /min [facility] ([facility]) Diastolic blood pressure 76 mm[Hg] 76 mm[Hg] [facility] ([facility]) @ 11:54 Systolic blood pressure 126 mm[Hg] 126 mm[Hg] [facility] ([facility]) @ 11:54 Diastolic blood pressure 60 mm[Hg] 60 mm[Hg] [facility] ([facility]) @ 11:23 Systolic blood pressure 138 mm[Hg] 138 mm[Hg] [facility] @ 11:23
--- NOTE | 2020-06-20 14:30 | HPEPDOC ---
General Date of Admission 06/20/20 Date of Service: Jun 20, 2020 Chief Complaint The patient is a 89-year-old male admitted with a reason for visit of SOB. Source: Patient, EMS, RN notes reviewed, Old records Exam Limitations: Dementia Severity: Mild History of Present Illness Patient is 89 years old male with past medical history of hypertension, squamous cell carcinoma of the skin, GERD, Lewy bodies dementia, CKD stage III presented hospital with shortness of breath. According to PCP in the office visit patient was found to have desaturation to 83%. Patient reported that he he has been having some cough with running nose. In ER patient was found to have tachypnea with respiration rate of 22. When I saw the patient she was on the room air with good oxygen saturation. Labs pertinent for leukocytes count of 10.1, creatinine 1.2, BNP 684. Chest x-ray showed Scattered bilateral infiltrates, diffusely throughout the right lung and in the left mid and lower lung zones, with a possible element of fibrotic change. Home Medications Scheduled Aspirin (Aspirin) 81 Mg Tab.chew, 81 MG GT DAILY, (Reported) Atorvastatin Calcium (Atorvastatin Calcium) 40 Mg Tablet, 40 MG GT QHS, (Reported) Donepezil HCl (Donepezil HCl) 10 Mg Tablet, 10 MG GT DAILY, (Reported) Loratadine (Claritin) 5 Mg Tab.rapdis, 5 MG SL DAILY, (Reported) Memantine HCl (Memantine HCl) 10 Mg Tablet, 10 MG GT BID, (Reported) Multivit-Mins No.20/Iron/Folic (Bacmin Caplet) 1 Each Tablet, 1 TAB GT Q2D, (Reported) ALT WITH NON-IRON MULTI VIT Multivitamin,Therapeutic (Thera-Tabs) 1 Each Tablet, 1 TAB GT Q2D, (Reported) ALT WITH MULTI-VIT WITH IRON Allergies Coded Allergies: oxacillin (Verified Allergy, Intermediate, rash, 06/20/20) shellfish derived (Verified Adverse Reaction, Intermediate, swelling/itching, 06/20/20) Past Medical History Medical History 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 KIDNEY INFECTION - 1951 MIGRAINE HEADACHES - 1952 LABILE HTN - 02/15/64 RIGHT HEARING LOSS PERIDONTAL DISEASE TACHYCARDIA - 1976 NU- 1996 ACID REFLUX- 2004 HEART MURMUR 2004 RESOLVED 02/18 MODERATE AORTIC VALVE STENOSIS 08/14 RESOLVED 02/18 STAGE 3 RENAL INSUFFICIENCY 12/2008 CHF - 01/14/12 RESOLVED 02/18 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 2 SON(S) , 1 DAUGHTER(S) . FATHER OF PA, 1 BROTHER PASSED FROM PA, HALF BROTHER OF PA, HALF SISTER OF COPD, 1 BROTHER COMMITEED SUICIDE. ALL CHILDREN HAVE HTN. Social History * Smoker: former Smoker Alcohol: Denies Drugs: denies A-FIB/CHADSVASC A-FIB History Current/History of A-Fib/PAF?: No Current PO Anticoag Therapy: No Review of Systems Constitutional: Denies: Chills, Fever Eyes: Denies: Pain, Vision change ENT: Denies: Head Aches Skin: Denies: Rash, Lesions Pulmonary: Reports: Dyspnea, Cough Cardiovascular: Denies: Chest Pain Gastrointestinal: Denies: Nausea Genitourinary: Denies: Dysuria Hematologic: Denies: Bruising Endocrine: Denies: Polydipsia Musculoskeletal: Denies: Neck Pain Neurological: Denies: Weakness Psych: Reports: Mood Normal Physical Examination General Exam: Positive: Alert, Cooperative ENT Exam: Positive: Atraumatic Neck Exam: Positive: Supple; Negative: JVD Chest Exam: Positive: Diminished Heart Exam: Positive: Rate Normal Telemetry: Positive: No significant arrhythmia Abdomen Exam: Positive: Normal bowel sounds Extremity Exam: Negative: Clubbing Skin Exam: Positive: Nl turgor and temperature Neuro Exam: Positive: Strength at 5/5 X4 ext Psych Exam: Positive: Mood NL, Other (demented) Vital Signs Vital Signs Date Time Temp Pulse Resp B/P (MAP) Pulse Ox O2 Delivery O2 Flow Rate FiO2 06/20/20 13:30 80 22 98 Room Air 06/20/20 13:00 145/72 (96) 06/20/20 11:00 98.1 Laboratory Data Labs 24H Laboratory Tests 2 06/20/20 11:51: Immature Granulocyte % (Auto) 0.6, Neutrophils (%) (Auto) 79.6H, Lymphocytes (%) (Auto) 8.8L, Monocytes (%) (Auto) 7.8H, Eosinophils (%) (Auto) 2.5, Basophils (%) (Auto) 0.7, Neutrophils # (Auto) 8.0, Lymphocytes # (Auto) 0.9L, Monocytes # (Auto) 0.8, Eosinophils # (Auto) 0.3, Basophils # (Auto) 0.1, Nucleated Red Blood Cells % (auto) 0.0, Anion Gap 8, Glomerular Filtration Rate 59.1, Calcium Level 9.8, Total Bilirubin 0.8, Direct Bilirubin 0.1, Aspartate Amino Transf (AST/SGOT) 45H, Alanine Aminotransferase (ALT/SGPT) 32, Alkaline Phosphatase 142H, Total Creatine Kinase 116, Creatine Kinase MB 1.3, Creatine Kinase MB Relative Index 1.12, Troponin I < 0.02, RM-Ncx-A-Type Natriuretic Peptide 684H, Total Protein 8.7H, Albumin 3.4, Albumin/Globulin Ratio 0.6 CBC/BMP Laboratory Tests 06/20/20 11:51 Microbiology Microbiology 06/20/20 Respiratory Virus Panel (PCR) ([facility]), Received Pending 06/20/20 Blood Culture, Received Pending 06/20/20 Blood Culture, Received Pending Assessment/Plan Patient is 89 years old male with past medical history of hypertension, squamous cell carcinoma of the skin, GERD, Lewy bodies dementia, CKD stage III presented hospital with shortness of breath. According to PCP in the office visit patient was found to have desaturation to 83%. Patient reported that he he has been having some cough with running nose. In ER patient was found to have tachypnea with respiration rate of 22. When I saw the patient she was on the room air with good oxygen saturation. Labs pertinent for leukocytes count of 10.1, creatinine 1.2, BNP 684. Chest x-ray showed Scattered bilateral infiltrates, diffusely throughout the right lung and in the left mid and lower lung zones, with a possible element of fibrotic change. Problems (1) Shortness of breath Status: Resolved Problem Text: Differential diagnosis includes reactive pneumonitis, pneumonia, aspiration, pulmonary fibrosis Patient does not have fever, normotensive Leukocytes count mildly elevated. Chest x-ray showed Scattered bilateral infiltrates, diffusely throughout the right lung and in the left mid and lower lung zones, with a possible element of fibrotic change Will start empirically levofloxacin IV Speech evaluation Incentive spirometry CT chest with contrast (2) Dementia Status: Chronic Problem Text: Continue home meds (3) CKD (chronic kidney disease) stage 3, GFR 30-59 ml/min Status: Chronic Problem Text: Continue to monitor (4) Diastolic CHF Status: Chronic Problem Text: BNP elevated to 600 Patient has history of aortic valve replacement Will proceed with echo I's and O's 20 Lasix IV daily Plan / VTE VTE Prophylaxis Ordered?: Yes JOANIE NOGUEIRA DO Jun 20, 2020 14:29
[2020-06-20] MEDS ORDERED: FUROSEMIDE 20MG/2ML VIAL (J1940) IV ONE (14:45)
[2020-06-20] MEDS ORDERED: ISOVUE-370 76% 100ML VIAL As Ordered ONE (14:48)
--- NOTE | 2020-06-20 15:19 | REP ---
INDICATION: SOB. COMPARISON: Comparison is made with today's chest x-ray.. TECHNIQUE: Contrast dose: 75 ML of Isovue [address] technique: Helical scanning is acquired and overlapping 1.5 mm and contiguous 3 mm axial images are reformatted. In addition, maximum intensity projection and multiplanar re-formation images are generated in sagittal and coronal imaging projections. FINDINGS: There is good opacification in the pulmonary arterial tree. There is no evidence of vessel cut off or filling defect to suggest pulmonary embolus. Homogeneous opacity is seen in the thoracic aorta. There is no evidence of aneurysm or dissection. Lung window settings demonstrate demonstrate advanced predominantly subpleural pulmonary fibrosis with multiple areas of honeycombing. There is also bilateral calcific pleural plaquing consistent with previous asbestos exposure. There is a moderate pneumomediastinum noted. There is also air in the pericardium posterior to the base of the heart. No cardiac chamber compression is appreciated. There is a tiny sliver of pneumothorax in the right lung apex. No definite acute focal infiltrate. In the upper abdomen, normal adrenal glands. There is an intrarenal 4 mm calculus in the upper pole of the right kidney. The visualized upper abdominal structures are otherwise unremarkable. The patient is extremely thin. Bone window settings demonstrate no bony destructive lesion. No rib or other fracture is seen. There is evidence of aortic valve replacement. IMPRESSION: No CT evidence of pulmonary embolus. Advanced interstitial pulmonary fibrosis with multiple areas of honeycombing. There is evidence of some degree of barotrauma in that there is pneumopericardium, pneumomediastinum, and a very small right-sided pneumothorax. There is a bilateral calcific pleural plaquing. Median sternotomy and aortic valve replacement. Intrarenal nephrolithiasis upper pole right kidney. <Electronically signed by Say Khan > 06/20/20 1902
[2020-06-20] MEDS: IPRATROPIUM 0.5MG/ALBUTEROL 2.5MG INH SOL UD 3ML (DUONEB) INH SCH ×2 (16:09→20:44)
--- NOTE | 2020-06-20 19:29 | ECGEPIP ---
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
[2020-06-20] MEDS ORDERED: ATORVASTATIN 20 MG TAB GT SCH (21:00)
[2020-06-20 22:00] VITALS: BP 132/74
[2020-06-21] MEDS: IPRATROPIUM 0.5MG/ALBUTEROL 2.5MG INH SOL UD 3ML (DUONEB) INH SCH ×5 (00:13→15:33)
[2020-06-21 06:00] VITALS: BP 143/75
[2020-06-21 06:21] LABS: HEMATOCRIT 37.2 % (42.0-52.0); MEAN CORPUSCULAR HEMOGLOBIN 28.5 pg (27.0-33.0); MEAN CORPUSCULAR HGB CONC 31.2 g/dl (32.0-36.5); MEAN CORPUSCULAR VOLUME 91.4 fl (80.0-96.0); PLATELET COUNT, AUTOMATED 192 10^3/uL (150-450); RED BLOOD COUNT 4.07 10^6/uL (4.30-6.10); WHITE BLOOD COUNT 11.1 10^3/uL (4.0-10.0)
[2020-06-21 06:22] LABS: HEMOGLOBIN 11.6 g/dl (13.5-17.5)
[2020-06-21 06:35] LABS: ALBUMIN 2.8 GM/DL (3.2-5.2); BILIRUBIN,TOTAL 0.7 MG/DL (0.2-1.0); CALCIUM LEVEL 8.8 MG/DL (8.8-10.2); CREATININE FOR GFR 1.22 MG/DL (0.70-1.30); GLOMERULAR FILTRATION RATE 59.7 (>35); MAGNESIUM LEVEL 1.9 MG/DL (1.8-2.4); TOTAL PROTEIN 7.4 GM/DL (6.4-8.2)
[2020-06-21] MEDS ORDERED: ENOXAPARIN 40MG/0.4ML SYRINGE (J1650 PER 10MG) SC SCH (09:00)
[2020-06-21] MEDS ORDERED: ASPIRIN 81 MG CHEW TABLET GT SCH (09:00)
[2020-06-21] MEDS ORDERED: FUROSEMIDE 20MG/2ML VIAL (J1940) IV ONE (09:00)
[2020-06-21] MEDS ORDERED: LASI20TA3 PO (09:09)
--- NOTE | 2020-06-21 12:38 | DS.PDOC ---
Discharge Summary General Date of Admission Jun 20, 2020 at 11:00 Date of Discharge 06/21/20 Discharge Summary PROCEDURES PERFORMED DURING STAY: [None]. ADMITTING DIAGNOSES: Shortness of breath Dementia CKD (chronic kidney disease) stage 3, GFR 30-59 ml/min Diastolic CHF DISCHARGE DIAGNOSES: Shortness of breath Dementia CKD (chronic kidney disease) stage 3, GFR 30-59 ml/min Diastolic CHF Pulmonary fibrosis COMPLICATIONS/CHIEF COMPLAINT: Shortness Of Breath. HISTORY OF PRESENT ILLNESS:Patient is 89 years old male with past medical history of hypertension, squamous cell carcinoma of the skin, GERD, Lewy bodies dementia, CKD stage III presented hospital with shortness of breath. According to PCP in the office visit patient was found to have desaturation to 83%. Patient reported that he he has been having some cough with running nose. In ER patient was found to have tachypnea with respiration rate of 22. When I saw the patient she was on the room air with good oxygen saturation. Labs pertinent for leukocytes count of 10.1, creatinine 1.2, BNP 684. Chest x-ray showed Scattered bilateral infiltrates, diffusely throughout the right lung and in the left mid and lower lung zones, with a possible element of fibrotic change. HOSPITAL COURSE: During the hospital stay following issue addressed Problems (1) Shortness of breath Differential diagnosis includes reactive pneumonitis, pneumonia, aspiration, pulmonary fibrosis. CTA positive for advanced pulmonary fibrosis. Patient does not have fever, normotensive Leukocytes count mildly elevated. Chest x-ray showed Scattered bilateral infiltrates, diffusely throughout the right lung and in the left mid and lower lung zones, with a possible element of fibrotic change Patient received empirically levofloxacin IV, procalcitonin negative After Speech evaluation diet was modified Incentive spirometry CT chest see below Follow-up with neon glass bender in the outpatient settings (2) Dementia Continue home meds (3) CKD (chronic kidney disease) stage 3, GFR 30-59 ml/min Continue to monitor (4) Diastolic CHF BNP elevated to 600 Patient has history of aortic valve replacement echo pending I's and O's 20 Lasix IV daily DISCHARGE MEDICATIONS: Please see below. ALLERGIES: Please see below. PHYSICAL EXAMINATION ON DISCHARGE: VITAL SIGNS: Please see below. GENERAL APPEARANCE: NAD HEENT: no scleral icterus, no JVD, EOMI CARDIOVASCULAR: S1S2 LUNGS: CTA ABDOMEN: soft & not tender w palpitation MUSCULOSKELETAL: no cyanosis, no swelling INTEGUMENT: no generalized pallor NEUROLOGICAL: cranial nerve function from 2-12 intact intact, follows commands, speech not dysarthric LABORATORY DATA: Please see below. IMAGING: INDICATION: SOB. COMPARISON: Comparison is made with today's chest x-ray.. TECHNIQUE: Contrast dose: 75 ML of Isovue [address] technique: Helical scanning is acquired and overlapping 1.5 mm and contiguous 3 mm axial images are reformatted. In addition, maximum intensity projection and multiplanar re-formation images are generated in sagittal and coronal imaging projections. FINDINGS: There is good opacification in the pulmonary arterial tree. There is no evidence of vessel cut off or filling defect to suggest pulmonary embolus. Homogeneous opacity is seen in the thoracic aorta. There is no evidence of aneurysm or dissection. Lung window settings demonstrate demonstrate advanced predominantly subpleural pulmonary fibrosis with multiple areas of honeycombing. There is also bilateral calcific pleural plaquing consistent with previous asbestos exposure. There is a moderate pneumomediastinum noted. There is also air in the pericardium posterior to the base of the heart. No cardiac chamber compression is appreciated. There is a tiny sliver of pneumothorax in the right lung apex. No definite acute focal infiltrate. In the upper abdomen, normal adrenal glands. There is an intrarenal 4 mm calculus in the upper pole of the right kidney. The visualized upper abdominal structures are otherwise unremarkable. The patient is extremely thin. Bone window settings demonstrate no bony destructive lesion. No rib or other fracture is seen. There is evidence of aortic valve replacement. IMPRESSION: No CT evidence of pulmonary embolus. Advanced interstitial pulmonary fibrosis with multiple areas of honeycombing. There is evidence of some degree of barotrauma in that there is pneumopericardium, pneumomediastinum, and a very small right-sided pneumothorax. There is a bilateral calcific pleural plaquing. Median sternotomy and aortic valve replacement. Intrarenal nephrolithiasis upper pole right kidney. <Electronically signed by Say Khan > 06/20/20 1516 DD: Byron Khan MD 06/20/20 1508 DT: LUCIA 06/20/20 1516 DS: JACQUE 06/20/20 1508 06/20/20 1508 [~ rep ct labl] PROGNOSIS: Guarded ACTIVITY: [As tolerated]. DIET: Regular DISCHARGE PLAN: Home . ITEMS TO FOLLOWUP ON ON OUTPATIENT: Follow-up with PCP and neon glass bender DISCHARGE CONDITION: [Stable]. TIME SPENT ON DISCHARGE: 40 minutes. Vital Signs/I&Os Vital Signs Date Time Temp Pulse Resp B/P (MAP) Pulse Ox O2 Delivery O2 Flow Rate FiO2 06/21/20 06:00 97.1 98 20 143/75 (97) 97 Room Air I&O- Last 24 Hours up to 6 AM 06/21/20 06:00 Intake Total 550 ml Output Total 0 ml Balance 550 ml Laboratory Data Labs 24H Laboratory Tests 2 06/20/20 13:05: Influenza A Immunofluorescence NEGATIVE, Influenza B Immunofluorescence NEGATIVE 06/20/20 13:07: SARS Antigen ([facility]) NEGATIVE 06/21/20 05:37: Nucleated Red Blood Cells % (auto) 0.0, Anion Gap 6L, Glomerular Filtration Rate 59.7, Calcium Level 8.8, Magnesium Level 1.9, Total Bilirubin 0.7, Aspartate Amino Transf (AST/SGOT) 18, Alanine Aminotransferase (ALT/SGPT) 23, Alkaline Phosphatase 120H, Total Protein 7.4, Albumin 2.8L, Albumin/Globulin Ratio 0.6 CBC/BMP Laboratory Tests 06/21/20 05:37 Microbiology Microbiology 06/20/20 Respiratory Virus Panel (PCR) ([facility]) - Final, Complete 06/20/20 Blood Culture, Received Pending 06/20/20 Blood Culture, Received Pending Discharge Medications Scheduled Aspirin (Aspirin) 81 Mg Tab.chew, 81 MG GT DAILY, (Reported) Atorvastatin Calcium (Atorvastatin Calcium) 40 Mg Tablet, 40 MG GT QHS, (Reported) Donepezil HCl (Donepezil HCl) 10 Mg Tablet, 10 MG GT DAILY, (Reported) Furosemide (Lasix) 20 Mg Tablet, 20 MG PO DAILY Loratadine (Claritin) 5 Mg Tab.rapdis, 5 MG SL DAILY, (Reported) Memantine HCl (Memantine HCl) 10 Mg Tablet, 10 MG GT BID, (Reported) Multivit-Mins No.20/Iron/Folic (Bacmin Caplet) 1 Each Tablet, 1 TAB GT Q2D, (Reported) ALT WITH NON-IRON MULTI VIT Multivitamin,Therapeutic (Thera-Tabs) 1 Each Tablet, 1 TAB GT Q2D, (Reported) ALT WITH MULTI-VIT WITH IRON Allergies Coded Allergies: oxacillin (Verified Allergy, Intermediate, rash, 06/20/20) shellfish derived (Verified Adverse Reaction, Intermediate, swelling/itching, 06/20/20) JOANIE NOGUEIRA DO Jun 21, 2020 12:38
[2020-06-21 14:00] VITALS: BP 156/84
[2020-06-22] MEDS ORDERED: LevoFLOXacin IV 750 MG in IV 1 EA IV SCH (14:00)
--- NOTE | 2020-06-24 11:43 | ECHO ---
DATE OF PROCEDURE: 06/21/2020 Age: 89 Gender: Male Height: 157 cm Weight: 53 kg REFERRING PHYSICIAN: Tyrese Plasencia DO INDICATION: Heart failure, unspecified. MEASUREMENTS: 2D Measurements: Left atrium 3.4 cm Intraventricular septum 1.65 cm Posterior wall 1.27 cm Left ventricle diastole 2.4 cm LVOT 1.9 cm Aortic root 3.2 cm Doppler Measurements: No aortic regurgitation No aortic stenosis Aortic valve velocity 176 cm/s LVOT velocity 78.3 cm/s Mild mitral regurgitation Mitral E velocity 62.6 cm/s Mitral A velocity 126 cm/s No tricuspid regurgitation No pulmonic regurgitation Pulmonary artery acceleration time 95 msec MITRAL ANNULAR TISSUE DOPPLER E prime septal 4.2 cm/s, E prime lateral 7.8 cm/s DESCRIPTION: Rhythm was sinus. This was a moderately technically difficult echocardiogram. No subcostal views (technically difficult). This was a 2D, M- mode, color flow Doppler, and pulsed wave Doppler examination including mitral annular tissue Doppler. No pericardial effusion. CONCLUSIONS: 1. Moderate concentric left ventricular hypertrophy with reduced LV cavity size. Hyperdynamic LV systolic function. LVEF 75% by visual estimate. No regional wall motion abnormalities. Grade 1 LV diastolic dysfunction. 2. Mild aortic valve sclerosis of a 3-cuspid aortic valve. No aortic regurgitation. 3. Mild mitral annular calcification. Mild mitral regurgitation. 4. Suggestive of mild elevation of pulmonary artery systolic pressure. 5. Moderately technically difficult echocardiogram. 6. Otherwise normal appearing echocardiogram Doppler findings. MTDD
== END 2020-06-21 17:18 | disposition home or self-care (01) ==
LOC: M ED 10:59 → M ED INP 11:00 → M MSPAV 16:29
PROVIDERS: ADMIT Internal Medicine; ATTEND Internal Medicine
DX: R06.02 Shortness of breath (principal); G31.83 Neurocognitive disorder with Lewy bodies; N18.30 Chronic kidney disease, stage 3 unspecified; K21.9 Gastro-esophageal reflux disease without esophagitis; I50.30 Unspecified diastolic (congestive) heart failure; I10 Essential (primary) hypertension; J84.10 Pulmonary fibrosis, unspecified; Z88.0 Allergy status to penicillin; Z91.013 Allergy to seafood; Z79.82 Long term (current) use of aspirin; Z79.899 Other long term (current) drug therapy; Z87.891 Personal history of nicotine dependence
CPT/HCPCS: 36415; 71045; 71275; 80048; 80053; 80076; 82550; 82553; 83735; 83880; 84145; 84484; 85025; 85027; 87040; 87486; 87581; 87633; 87798; 87804; 92526; 92610; 93005; 93041; 93306; 94640; 94760; 96365; 96372; 96375; 96376; 97161; 99285; G0378; J1650; J1940; J1956; Q9967